=== PATIENT | female | born 1960 | race Two or more races ===

== ENCOUNTER 2023-10-09 15:15 | Inpatient (IN) | payer MEDICAID ==
[~2023-10-09] VITALS: Ht 165.1 cm; Wt 70.2 kg
[~2023-10-09 15:15] MED LIST: CEFP200T15 PO; CIPR500T4 PO
[2023-10-09 16:24] LABS: Basophils # (auto) 0 10 ^3/uL (0-0.2); Basophils % (auto) 0.3 % (0.0-2.0); Eosinophils # (auto) 0.1 10 ^3/uL (0-0.8); Eosinophils % (auto) 0.7 % (0.0-7.0); Hemoglobin 10.9 g/dL (12.2-16.2); Lymphocytes # (auto) 0.7 10 ^3/uL (0.4-5.4); Lymphocytes % (auto) 7.8 % (10.0-50.0); Mean Corpuscular Hemoglobin 29.8 pg (28.0-32.0); Mean Corpuscular Hgb Conc. 32.9 g/dL (32.0-36.0); Mean Corpuscular Volume 90.6 fL (80.0-100.0); Monocytes # (auto) 0.6 10 ^3/uL (0-1.3); Monocytes % (auto) 6.8 % (0.0-12.0); Neutrophils # (auto) 7.5 10 ^3/uL (1.6-8.6); Neutrophils % (auto) 84.4 % (37.0-80.0); Nucleated Red Blood Cells % 0.1 %; Red Blood Cells 3.64 10^6/uL (4.0-5.20); Red Cell Distribution Width 18.7 % (11.8-14.3); White Blood Cell 8.9 10^3/uL (4.4-10.8)
[2023-10-09 16:41] LABS: Alanine Aminotransferase 32 U/L (7-40); Albumin 3.6 g/dL (3.2-4.8); Alkaline Phosphatase 91 U/L (46-116); Anion Gap 8 (5-15); Aspartate Aminotransferase 41 U/L (13-40); BUN/Creatinine Ratio 16.9 (10.0-20.0); Blood Urea Nitrogen 27 mg/dL (9-23); Calcium 9.4 mg/dL (8.7-10.4); Carbon Dioxide 15 mmol/L (20-30); Chloride 122 mmol/L (98-107); Glucose 129 mg/dL (74-106); Lipase 180 U/L (12-53); Platelet Estimate Decreased; Potassium 3.4 mmol/L (3.5-5.1); Sodium 145 mmol/L (136-145)
[2023-10-09 16:42] LABS: Bilirubin, Total 1.4 mg/dL (0.2-1.0); Total Protein 6.6 g/dL (5.7-8.2)
[2023-10-09 16:44] VITALS: RESP 18; O2SAT 96
[2023-10-09 19:04] LABS: Urine Bacteria MOD /hpf (None Seen); Urine Blood Negative /uL (Negative); Urine Clarity Clear (Clear); Urine Color Light-Yellow (Yellow); Urine Protein, UAD TRACE (Negative); Urine Specific Gravity 1.011 (1.001-1.035); Urine Urobilinogen Normal (Negative); Urine WBC 12 /hpf (0 - 5); Urine pH 6.5 (5.0-9.0)
[2023-10-09 19:45] VITALS: PULSE 87; RESP 19; O2SAT 95
[2023-10-09] MEDS ORDERED: DEXTROSE (50%) 50ML SYRG IV PRN (23:00)
[2023-10-09] MEDS ORDERED: ONDANSETRON HCL 4 MG/2 ML VIAL IV PRN (23:00)
[2023-10-09] MEDS: SOD CHL 0.9%/ KCL 20MEQ 1,000 ML IV ONE (23:00)
[2023-10-09] MEDS ORDERED: ACETAMINOPHEN 325 MG TAB PO PRN (23:00)
[2023-10-10] VITALS (7 sets, daily range): BP systolic 112–128; BP diastolic 53–59; PULSE 78–91; RESP 16–20; TEMP 98.3–99.5; O2SAT 95–97
[2023-10-10] MEDS: ACCU-CHEK COMFORT CURVE STRIP VI SCH
[2023-10-10] MEDS: InsuLIN REG 1unit/0.01ml Soln (100units/ml) SC SCH
[2023-10-10] MEDS: cefTRIAXone 1GM/50ML D5W 50 ML IV ONE (00:13)
[2023-10-10 07:55] LABS: Eosinophils # (auto) 0.1 10 ^3/uL (0-0.8); Hemoglobin 10.8 g/dL (12.2-16.2); Monocytes # (auto) 0.5 10 ^3/uL (0-1.3)
[2023-10-10 07:58] LABS: Basophils # (auto) 0 10 ^3/uL (0-0.2); Basophils % (auto) 0.3 % (0.0-2.0); Eosinophils % (auto) 0.9 % (0.0-7.0); Lymphocytes # (auto) 0.8 10 ^3/uL (0.4-5.4); Lymphocytes % (auto) 7.7 % (10.0-50.0); Mean Corpuscular Hgb Conc. 33.7 g/dL (32.0-36.0); Mean Corpuscular Volume 91.8 fL (80.0-100.0); Monocytes % (auto) 4.9 % (0.0-12.0); Neutrophils # (auto) 8.6 10 ^3/uL (1.6-8.6); Neutrophils % (auto) 86.2 % (37.0-80.0); Nucleated Red Blood Cells % 0.1 %; Red Blood Cells 3.48 10^6/uL (4.0-5.20); Red Cell Distribution Width 19.4 % (11.8-14.3)
[2023-10-10 08:09] LABS: Alanine Aminotransferase 32 U/L (7-40); Albumin 3.8 g/dL (3.2-4.8); Alkaline Phosphatase 95 U/L (46-116); Anion Gap 11 (5-15); Aspartate Aminotransferase 39 U/L (13-40); BUN/Creatinine Ratio 17.1 (10.0-20.0); Blood Urea Nitrogen 24 mg/dL (9-23); Carbon Dioxide 13 mmol/L (20-30); Chloride 120 mmol/L (98-107); Glucose 113 mg/dL (74-106); Potassium 2.9 mmol/L (3.5-5.1); Sodium 144 mmol/L (136-145)
[2023-10-10 08:11] LABS: Bilirubin, Total 1.4 mg/dL (0.2-1.0); Total Protein 6.9 g/dL (5.7-8.2)
[2023-10-10] MEDS ORDERED: SERT100T PO (08:25)
[2023-10-10] MEDS ORDERED: FERR325T20 PO (08:27)
[2023-10-10] MEDS ORDERED: OMEP1CAP70 PO (08:27)
[2023-10-10] MEDS ORDERED: ERGO1CAP12 PO (08:27)
[2023-10-10] MEDS ORDERED: HYD25TP TOP (08:27)
[2023-10-10] MEDS ORDERED: INSU1INJ19 SC (08:27)
[2023-10-10] MEDS ORDERED: SERT-160 PO (08:27)
[2023-10-10 10:55] LABS: INR 1.13 (0.9-1.15); Partial Thromboplastin Time 27.8 SEC (24.5-34.5); Prothrombin Time 11.9 sec (9.3-11.8)
[2023-10-10] MEDS: POTASSIUM EFFERVESENT TAB 25 MEQ PO ONE (12:05)
[2023-10-10] MEDS: LACTULOSE 20Gm/30ML SOLN PO SCH (14:49)
[2023-10-10] MEDS ORDERED: cefTRIAXone 1GM/50ML D5W 50 ML IV SCH (21:00)
[2023-10-11] VITALS (7 sets, daily range): BP systolic 98–121; BP diastolic 42–58; PULSE 66–85; RESP 16–20; TEMP 97.8–98.9; O2SAT 95–97
[2023-10-11 07:37] LABS: Basophils # (auto) 0 10 ^3/uL (0-0.2); Basophils % (auto) 0.2 % (0.0-2.0); Eosinophils # (auto) 0.1 10 ^3/uL (0-0.8); Eosinophils % (auto) 2.2 % (0.0-7.0); Hematocrit 29.5 % (36.0-46.0); Lymphocytes # (auto) 0.8 10 ^3/uL (0.4-5.4); Lymphocytes % (auto) 12.7 % (10.0-50.0); Mean Corpuscular Hemoglobin 30.6 pg (28.0-32.0); Mean Corpuscular Volume 90.1 fL (80.0-100.0); Monocytes # (auto) 0.4 10 ^3/uL (0-1.3); Monocytes % (auto) 6.9 % (0.0-12.0); Neutrophils # (auto) 4.9 10 ^3/uL (1.6-8.6); Nucleated Red Blood Cells % 0.1 %; Red Blood Cells 3.27 10^6/uL (4.0-5.20); White Blood Cell 6.3 10^3/uL (4.4-10.8)
[2023-10-11 08:07] LABS: Anion Gap 10 (5-15); Carbon Dioxide 12 mmol/L (20-30); Chloride 115 mmol/L (98-107); Potassium 2.8 mmol/L (3.5-5.1); Sodium 137 mmol/L (136-145)
[2023-10-11 08:08] LABS: Calcium 8.8 mg/dL (8.7-10.4)
[2023-10-11 08:12] LABS: Glucose 116 mg/dL (74-106)
[2023-10-11 08:13] LABS: BUN/Creatinine Ratio 20.1 (10.0-20.0); Blood Urea Nitrogen 27 mg/dL (9-23)
[2023-10-11] MEDS: POTASSIUM EFFERVESENT TAB 25 MEQ PO ONE ×2 (11:01→18:39)
[2023-10-11] MEDS: cefTRIAXone 1GM/50ML D5W 50 ML IV SCH (11:01)
[2023-10-11] MEDS ORDERED: POTA-180 PO (13:55)
[2023-10-11] MEDS: SERTRALINE HCL 50 MG TAB PO ONE (19:11)
[2023-10-12] VITALS (7 sets, daily range): BP systolic 105–120; BP diastolic 40–47; PULSE 70–85; RESP 16–17; TEMP 98.1–98.7; O2SAT 96–97
[2023-10-12 06:14] LABS: Hemoglobin 10.6 g/dL (12.2-16.2)
[2023-10-12 06:18] LABS: Basophils # (auto) 0 10 ^3/uL (0-0.2); Basophils % (auto) 0.6 % (0.0-2.0); Eosinophils # (auto) 0.2 10 ^3/uL (0-0.8); Eosinophils % (auto) 3.2 % (0.0-7.0); Hematocrit 31.4 % (36.0-46.0); Lymphocytes # (auto) 0.9 10 ^3/uL (0.4-5.4); Lymphocytes % (auto) 17.8 % (10.0-50.0); Mean Corpuscular Hemoglobin 30.4 pg (28.0-32.0); Mean Corpuscular Hgb Conc. 33.8 g/dL (32.0-36.0); Mean Corpuscular Volume 89.9 fL (80.0-100.0); Monocytes # (auto) 0.5 10 ^3/uL (0-1.3); Monocytes % (auto) 9.6 % (0.0-12.0); Neutrophils # (auto) 3.5 10 ^3/uL (1.6-8.6); Neutrophils % (auto) 68.8 % (37.0-80.0); Nucleated Red Blood Cells % 0.2 %
[2023-10-12 06:29] LABS: Chloride 115 mmol/L (98-107); Potassium 3.3 mmol/L (3.5-5.1); Sodium 141 mmol/L (136-145)
[2023-10-12 06:30] LABS: Anion Gap 13 (5-15); Calcium 8.8 mg/dL (8.7-10.4); Carbon Dioxide 13 mmol/L (20-30)
[2023-10-12 06:35] LABS: Blood Urea Nitrogen 24 mg/dL (9-23); Glucose 113 mg/dL (74-106)
[2023-10-12] MEDS: POTASSIUM EFFERVESENT TAB 25 MEQ PO ONE ×2 (06:44→10:09)
[2023-10-12] MEDS ORDERED: SERTRALINE HCL 50 MG TAB PO SCH (10:00)
[2023-10-12] MEDS ORDERED: LACT10SO3 PO (11:58)
[2023-10-12] MEDS ORDERED: CEPH250C PO (11:59)
[2023-10-12] MEDS ORDERED: POTA-180 PO (12:00)
[2023-10-12] MEDS: SERTRALINE HCL 50 MG TAB PO SCH (17:45)
== END 2023-10-12 18:35 | disposition home or self-care (01) ==
LOC: ER 15:17 → OVERFLOW 22:59 → CENTRAL 10-10 07:59
PROVIDERS: ADMIT Internal Medicine Geriatric Medicine; ATTEND Internal Medicine Geriatric Medicine
DX: K74.60 Unspecified cirrhosis of liver (principal); N17.0 Acute kidney failure with tubular necrosis; G93.41 Metabolic encephalopathy; E72.20 Disorder of urea cycle metabolism, unspecified; D69.6 Thrombocytopenia, unspecified; E11.22 Type 2 diabetes mellitus with diabetic chronic kidney disease; D64.9 Anemia, unspecified; E87.6 Hypokalemia; N39.0 Urinary tract infection, site not specified; N18.30 Chronic kidney disease, stage 3 unspecified; Z93.3 Colostomy status; Z90.49 Acquired absence of other specified parts of digestive tract; Z79.899 Other long term (current) drug therapy
CPT/HCPCS: 36415; 70450; 71045; 71250; 74176; 80048; 80053; 81001; 82140; 82962; 83605; 83690; 83735; 84484; 85025; 85379; 85610; 85730; 86038; 87040; 87081; 87086; 93005; 96365; 96367; G0378; J1815

== ENCOUNTER 2023-10-23 11:11 | Inpatient (IN) | payer MEDICAID ==
[~2023-10-23] VITALS: Ht 167.6 cm; Wt 95.0 kg
[2023-10-23 03:32] VITALS: PULSE 95; RESP 20; O2SAT 97
[~2023-10-23 11:11] MED LIST changes: -CEFP200T15 PO; +CEPH250C PO; -CIPR500T4 PO; +ERGO1CAP12 PO; +FERR325T20 PO; +HYD25TP TOP; +INSU1INJ19 SC; +LACT10SO3 PO; +OMEP1CAP70 PO; +POTA-180 PO; +SERT-160 PO
[2023-10-23 12:00] VITALS: PULSE 94; RESP 14; O2SAT 100
[2023-10-23] MEDS: SODIUM CHLORIDE 0.9% 500 ML IVB ONE (12:22)
[2023-10-23 12:36] LABS: Basophils # (auto) 0 10 ^3/uL (0-0.2); Eosinophils # (auto) 0.1 10 ^3/uL (0-0.8); Eosinophils % (auto) 0.7 % (0.0-7.0); Hemoglobin 13.5 g/dL (12.2-16.2); Lymphocytes # (auto) 0.8 10 ^3/uL (0.4-5.4); Lymphocytes % (auto) 4.7 % (10.0-50.0); Mean Corpuscular Hemoglobin 30.4 pg (28.0-32.0); Mean Corpuscular Hgb Conc. 32.9 g/dL (32.0-36.0); Mean Corpuscular Volume 92.3 fL (80.0-100.0); Monocytes # (auto) 1.1 10 ^3/uL (0-1.3); Monocytes % (auto) 6.8 % (0.0-12.0); Neutrophils # (auto) 14.2 10 ^3/uL (1.6-8.6); Neutrophils % (auto) 87.8 % (37.0-80.0); Nucleated Red Blood Cells % 0.4 %; Red Blood Cells 4.44 10^6/uL (4.0-5.20); Red Cell Distribution Width 18.8 % (11.8-14.3); White Blood Cell 16.2 10^3/uL (4.4-10.8)
[2023-10-23 12:57] LABS: Alanine Aminotransferase 90 U/L (7-40); Albumin 3.6 g/dL (3.2-4.8); Alkaline Phosphatase 147 U/L (46-116); Anion Gap 11.00001 (5-15); Aspartate Aminotransferase 124 U/L (13-40); BUN/Creatinine Ratio 12.9 (10.0-20.0); Blood Urea Nitrogen 54 mg/dL (9-23); Calcium 9.3 mg/dL (8.7-10.4); Chloride 112 mmol/L (98-107); Glucose 203 mg/dL (74-106); Potassium 2.8 mmol/L (3.5-5.1); Sodium 133 mmol/L (136-145); Total Protein 6.9 g/dL (5.7-8.2)
[2023-10-23 13:07] LABS: Carbon Dioxide < 10 mmol/L (20-30)
[2023-10-23 13:19] LABS: Lactic Acid w/Reflex 3.1 mmol/L (0.4-2.0)
[2023-10-23 15:24] LABS: Urine Bacteria None Seen /hpf (None Seen)
[2023-10-23 15:39] LABS: Urine Blood 3+ /uL (Negative); Urine Clarity Turbid (Clear); Urine Color Light-Orange (Yellow); Urine Protein, UAD 2+ (Negative); Urine Specific Gravity 1.013 (1.001-1.035); Urine Urobilinogen Normal (Negative); Urine WBC 267 /hpf (0 - 5); Urine pH 6.5 (5.0-9.0)
[2023-10-23] MEDS ORDERED: ACETAMINOPHEN 325 MG TAB PO PRN (16:00)
[2023-10-23] MEDS ORDERED: DOCUSATE SOD 100 MG CAP PO PRN (16:00)
[2023-10-23] MEDS: SODIUM CHLORIDE 0.9% 1,000 ML IV SCH (16:00)
[2023-10-23] MEDS ORDERED: DEXTROSE (50%) 50ML SYRG IV PRN (16:00)
[2023-10-23] MEDS: SODIUM CHLORIDE 0.9% 2,000 ML IV ONE (16:00)
[2023-10-23] MEDS ORDERED: ONDANSETRON HCL 4 MG/2 ML VIAL IV PRN (16:00)
[2023-10-23] MEDS: cefTRIAXone 1GM/50ML D5W 50 ML IV ONE (16:10)
[2023-10-23] MEDS ORDERED: IBUPROFEN 600 MG TAB PO PRN (16:30)
[2023-10-23] MEDS: VANCOMYCIN 1GM/200ML 200 ML IV ONE (16:31)
[2023-10-23] MEDS ORDERED: NITROGLYCERIN 0.4 MG SL TAB SL PRN (17:00)
[2023-10-23] MEDS: ACCU-CHEK COMFORT CURVE STRIP VI SCH (17:00)
[2023-10-23] MEDS ORDERED: MORPHINE SULFATE INJ 2 MG/ml SYRG IV PRN (17:00)
[2023-10-23] MEDS: POTASSIUM CHL 20MEQ/100ML 100 ML IV SCH (17:23)
[2023-10-23] MEDS: POTASSIUM CHL 20MEQ/100ML 100 ML IV ONE ×2 (17:45→19:43)
[2023-10-23] MEDS: InsuLIN REG 1unit/0.01ml Soln (100units/ml) SC SCH ×2 (17:47→21:46)
[2023-10-23] MEDS: SODIUM CHLORIDE 0.9% 500 ML IV ONE (17:49)
[2023-10-23] MEDS: SODIUM BICARB 8.4% 50Meq/50ml SYR Vial IV ONE (18:26)
[2023-10-23] MEDS: SODIUM BICARB 50mEq/50ml Vial 150 ML in D5W 5% 1,000 ML IV SCH (19:08)
[2023-10-23 19:44] LABS: Sodium Urine 60 mmol/L (40-220)
[2023-10-23 19:51] LABS: Creatinine, Urine 146.55 mg/dL (30.0-125.0)
[2023-10-23 19:52] LABS: Amphetamine Screen, Urine Neg (NEGATIVE); Barbiturate Scree,Urine Neg (NEGATIVE); Benzodiazephine Screen, Urine Neg (NEGATIVE)
[2023-10-23 19:53] LABS: Cannabinoid Screen, Urine Neg (NEGATIVE); Cocaine Screen, Urine Neg (NEGATIVE); Opiate Scree,Urine Neg (NEGATIVE); Phencyclidine Screen, Urine Neg (NEGATIVE)
[2023-10-23 19:54] LABS: Alanine Aminotransferase 77 U/L (7-40); Albumin 2.7 g/dL (3.2-4.8); Alkaline Phosphatase 106 U/L (46-116); Anion Gap 13.00001 (5-15); Aspartate Aminotransferase 124 U/L (13-40); BUN/Creatinine Ratio 16.4 (10.0-20.0); Blood Urea Nitrogen 57 mg/dL (9-23); Calcium 7.9 mg/dL (8.7-10.4); Chloride 119 mmol/L (98-107); Glucose 108 mg/dL (74-106); Potassium 2.7 mmol/L (3.5-5.1); Sodium 142 mmol/L (136-145)
[2023-10-23 19:55] LABS: Protein, Urine 254.1 mg/dL (0.0-11.9)
[2023-10-23 19:56] LABS: Bilirubin, Total 0.6 mg/dL (0.2-1.0)
[2023-10-23 19:57] LABS: Total Protein 5.1 g/dL (5.7-8.2)
[2023-10-23 20:01] LABS: Carbon Dioxide < 10 mmol/L (20-30)
[2023-10-23] MEDS ORDERED: LACTULOSE 20Gm/30ML SOLN PO PRN (22:00)
[2023-10-24] VITALS (7 sets, daily range): BP systolic 116–124; BP diastolic 42–69; PULSE 86–99; RESP 18–20; TEMP 96.7–98.1; O2SAT 97–100
[2023-10-24] MEDS: LACTULOSE 20Gm/30ML SOLN PO SCH (05:23)
[2023-10-24 07:05] LABS: Basophils # (auto) 0 10 ^3/uL (0-0.2); Eosinophils # (auto) 0.1 10 ^3/uL (0-0.8); Neutrophils # (auto) 5.1 10 ^3/uL (1.6-8.6); Red Blood Cells 3.34 10^6/uL (4.0-5.20); White Blood Cell 6.5 10^3/uL (4.4-10.8)
[2023-10-24 07:08] LABS: Basophils % (auto) 0.4 % (0.0-2.0); Eosinophils % (auto) 1.4 % (0.0-7.0); Hematocrit 29.7 % (36.0-46.0); Hemoglobin 10.4 g/dL (12.2-16.2); Lymphocytes # (auto) 0.7 10 ^3/uL (0.4-5.4); Mean Corpuscular Hemoglobin 31.1 pg (28.0-32.0); Mean Corpuscular Volume 88.9 fL (80.0-100.0); Monocytes # (auto) 0.6 10 ^3/uL (0-1.3); Neutrophils % (auto) 78.2 % (37.0-80.0); Nucleated Red Blood Cells % 0.2 %
[2023-10-24 07:28] LABS: Alanine Aminotransferase 91 U/L (7-40); Albumin 2.8 g/dL (3.2-4.8); Alkaline Phosphatase 106 U/L (46-116); Anion Gap 16.00001 (5-15); Aspartate Aminotransferase 150 U/L (13-40); BUN/Creatinine Ratio 18.3 (10.0-20.0); Bilirubin, Total 0.9 mg/dL (0.2-1.0); Blood Urea Nitrogen 61 mg/dL (9-23); Calcium 8.2 mg/dL (8.7-10.4); Chloride 117 mmol/L (98-107); Glucose 141 mg/dL (74-106); Sodium 143 mmol/L (136-145); Total Protein 5.3 g/dL (5.7-8.2)
[2023-10-24 07:42] LABS: Potassium 2.3 mmol/L (3.5-5.1)
[2023-10-24 07:43] LABS: Carbon Dioxide < 10 mmol/L (20-30)
[2023-10-24] MEDS: POTASSIUM CHL 20MEQ/100ML 100 ML IV SCH (08:30)
[2023-10-24] MEDS: cefTRIAXone 1GM/50ML D5W 50 ML IV SCH (10:54)
[2023-10-24] MEDS: LACTULOSE 20Gm/30ML SOLN PO ONE (12:28)
[2023-10-24 12:33] LABS: INR 1.29 (0.9-1.15); Partial Thromboplastin Time 30.7 SEC (24.5-34.5); Prothrombin Time 13.4 sec (9.3-11.8)
[2023-10-24 16:54] LABS: Chloride 120 mmol/L (98-107); Potassium 2.6 mmol/L (3.5-5.1); Sodium 144 mmol/L (136-145)
[2023-10-24 16:55] LABS: Anion Gap 13 (5-15); Calcium 8.3 mg/dL (8.7-10.4); Carbon Dioxide 11 mmol/L (20-30)
[2023-10-24 17:00] LABS: Glucose 165 mg/dL (74-106); Magnesium 2.4 mg/dL (1.6-2.6)
[2023-10-24 17:02] LABS: Blood Urea Nitrogen 49 mg/dL (9-23)
[2023-10-24] MEDS: PIPERACILLIN-TAZOB 3.375GM 100 ML IV ONE (17:28)
[2023-10-24] MEDS: PANTOPRAZOLE 40 MG/10 ML VIAL INJ IV ONE (17:28)
[2023-10-24] MEDS: PIPERACILLIN-TAZOB 3.375GM 100 ML IV SCH (23:24)
[2023-10-25] VITALS (9 sets, daily range): BP systolic 112–139; BP diastolic 49–64; PULSE 8–101; RESP 18–20; TEMP 97.4–98; O2SAT 98–100
[2023-10-25] MEDS: POTASSIUM CHL 20MEQ/100ML 100 ML IV SCH ×2 (00:19→10:50)
[2023-10-25 05:58] LABS: Basophils # (auto) 0 10 ^3/uL (0-0.2); Basophils % (auto) 0.5 % (0.0-2.0); Eosinophils # (auto) 0.1 10 ^3/uL (0-0.8); Hematocrit 27.5 % (36.0-46.0); Hemoglobin 9.5 g/dL (12.2-16.2); Lymphocytes # (auto) 0.5 10 ^3/uL (0.4-5.4); Lymphocytes % (auto) 8.9 % (10.0-50.0); Mean Corpuscular Hemoglobin 30.6 pg (28.0-32.0); Mean Corpuscular Hgb Conc. 34.6 g/dL (32.0-36.0); Mean Corpuscular Volume 88.5 fL (80.0-100.0); Monocytes # (auto) 0.4 10 ^3/uL (0-1.3); Monocytes % (auto) 7.4 % (0.0-12.0); Neutrophils # (auto) 4.7 10 ^3/uL (1.6-8.6); Neutrophils % (auto) 81.2 % (37.0-80.0); Nucleated Red Blood Cells % 0.1 %; Red Blood Cells 3.11 10^6/uL (4.0-5.20); Red Cell Distribution Width 18.2 % (11.8-14.3); White Blood Cell 5.8 10^3/uL (4.4-10.8)
[2023-10-25 06:07] LABS: Alanine Aminotransferase 113 U/L (7-40); Albumin 2.8 g/dL (3.2-4.8); Alkaline Phosphatase 103 U/L (46-116); Anion Gap 14 (5-15); Aspartate Aminotransferase 197 U/L (13-40); BUN/Creatinine Ratio 19.5 (10.0-20.0); Calcium 8.7 mg/dL (8.7-10.4); Carbon Dioxide 12 mmol/L (20-30); Chloride 121 mmol/L (98-107); Glucose 107 mg/dL (74-106); Magnesium 2.3 mg/dL (1.6-2.6); Potassium 2.8 mmol/L (3.5-5.1); Sodium 147 mmol/L (136-145)
[2023-10-25 06:09] LABS: Bilirubin, Total 1.1 mg/dL (0.2-1.0)
[2023-10-25 06:34] LABS: Blood Urea Nitrogen 61 mg/dL (9-23)
[2023-10-25] MEDS: LACTULOSE 20Gm/30ML SOLN PO SCH (10:55)
[2023-10-25] MEDS: PANTOPRAZOLE 40 MG/10 ML VIAL INJ IV SCH (10:55)
[2023-10-25] MEDS: ERGOCALCIFEROL 50,000 UNIT(1.25MG) CAP PO SCH (10:55)
[2023-10-25] MEDS: Nepro With Carb Steady 1 Liter Bottle GT SCH (13:14)
[2023-10-26] VITALS (8 sets, daily range): BP systolic 110–140; BP diastolic 53–68; PULSE 79–130; RESP 12–18; TEMP 97.5–98.2; O2SAT 99–100
[2023-10-26] MEDS: POTASSIUM EFFERVESENT TAB 25 MEQ GT ONE (02:10)
[2023-10-26 06:19] LABS: Basophils # (auto) 0 10 ^3/uL (0-0.2); Basophils % (auto) 0.4 % (0.0-2.0); Eosinophils # (auto) 0.1 10 ^3/uL (0-0.8); Eosinophils % (auto) 2.4 % (0.0-7.0); Hematocrit 28.9 % (36.0-46.0); Hemoglobin 10.1 g/dL (12.2-16.2); Lymphocytes # (auto) 0.6 10 ^3/uL (0.4-5.4); Lymphocytes % (auto) 10.3 % (10.0-50.0); Mean Corpuscular Hemoglobin 30.9 pg (28.0-32.0); Mean Corpuscular Volume 88.2 fL (80.0-100.0); Monocytes # (auto) 0.6 10 ^3/uL (0-1.3); Monocytes % (auto) 8.9 % (0.0-12.0); Neutrophils # (auto) 4.9 10 ^3/uL (1.6-8.6); Nucleated Red Blood Cells % 0.1 %; Red Blood Cells 3.27 10^6/uL (4.0-5.20); Red Cell Distribution Width 18.5 % (11.8-14.3); White Blood Cell 6.2 10^3/uL (4.4-10.8)
[2023-10-26 06:37] LABS: Alanine Aminotransferase 149 U/L (7-40); Albumin 2.8 g/dL (3.2-4.8); Alkaline Phosphatase 104 U/L (46-116); Anion Gap 13 (5-15); Aspartate Aminotransferase 293 U/L (13-40); BUN/Creatinine Ratio 23.8 (10.0-20.0); Blood Urea Nitrogen 69 mg/dL (9-23); Calcium 8.6 mg/dL (8.7-10.4); Carbon Dioxide 19 mmol/L (20-30); Chloride 121 mmol/L (98-107); Glucose 158 mg/dL (74-106)
[2023-10-26 06:38] LABS: Bilirubin, Total 1.1 mg/dL (0.2-1.0); Total Protein 5.1 g/dL (5.7-8.2)
[2023-10-26 06:44] LABS: Sodium 153 mmol/L (136-145)
[2023-10-26] MEDS ORDERED: POTASSIUM CHLORIDE 40 MEQ in SOD CHL 0.45% 1,000 ML IV SCH (07:00)
[2023-10-26] MEDS ORDERED: SODIUM BICARB 50mEq/50ml Vial 50 ML in D5W 5% 1,000 ML IV SCH (09:15)
[2023-10-26] MEDS ORDERED: POTASSIUM CHL 20MEQ/100ML 100 ML IV SCH (09:15)
[2023-10-26] MEDS ORDERED: DEXTROSE (50%) 50ML SYRG IV PRN (12:15)
[2023-10-26] MEDS: SODIUM BICARB 50mEq/50ml Vial 50 ML in D5W 5% 1,000 ML IV SCH (12:32)
[2023-10-26] MEDS: LACTULOSE 20Gm/30ML SOLN PO SCH (15:01)
[2023-10-26] MEDS: LIDOCAINE 1% IV ONE (15:02)
[2023-10-26] MEDS: POTASSIUM CHLORIDE IV ONE (15:02)
[2023-10-26] MEDS: SODIUM CHL 0.9% IV ONE (15:02)
[2023-10-26 16:56] LABS: Anion Gap 9 (5-15); Calcium 8.6 mg/dL (8.7-10.4); Carbon Dioxide 20 mmol/L (20-30); Chloride 119 mmol/L (98-107); Potassium 3.4 mmol/L (3.5-5.1)
[2023-10-26 17:02] LABS: BUN/Creatinine Ratio 20.9 (10.0-20.0); Glucose 164 mg/dL (74-106)
[2023-10-26 17:05] LABS: Blood Urea Nitrogen 53 mg/dL (9-23); Sodium 148 mmol/L (136-145)
[2023-10-26] MEDS: ACCU-CHEK COMFORT CURVE STRIP VI SCH (18:14)
[2023-10-26] MEDS: InsuLIN REG 1unit/0.01ml Soln (100units/ml) SC SCH (18:17)
[2023-10-27] VITALS (8 sets, daily range): BP systolic 93–133; BP diastolic 51–74; PULSE 65–82; RESP 17–20; TEMP 97.1–98.3; O2SAT 94–100
[2023-10-27] MEDS: POTASSIUM CHL 20MEQ/100ML 100 ML IV ONE (03:15)
[2023-10-27 06:39] LABS: Alanine Aminotransferase 130 U/L (7-40); Alkaline Phosphatase 81 U/L (46-116); Anion Gap 11 (5-15); BUN/Creatinine Ratio 23.9 (10.0-20.0); Blood Urea Nitrogen 52 mg/dL (9-23); Calcium 8.2 mg/dL (8.7-10.4); Carbon Dioxide 19 mmol/L (20-30); Chloride 115 mmol/L (98-107); Glucose 131 mg/dL (74-106); Sodium 145 mmol/L (136-145)
[2023-10-27 06:40] LABS: Aspartate Aminotransferase 215 U/L (13-40); Basophils # (auto) 0 10 ^3/uL (0-0.2); Basophils % (auto) 0.3 % (0.0-2.0); Eosinophils # (auto) 0.1 10 ^3/uL (0-0.8); Lymphocytes # (auto) 0.5 10 ^3/uL (0.4-5.4); Lymphocytes % (auto) 13.7 % (10.0-50.0); Neutrophils # (auto) 2.9 10 ^3/uL (1.6-8.6); White Blood Cell 3.9 10^3/uL (4.4-10.8)
[2023-10-27 06:41] LABS: Albumin 2.5 g/dL (3.2-4.8); Bilirubin, Total 1.3 mg/dL (0.2-1.0); Total Protein 4.5 g/dL (5.7-8.2)
[2023-10-27 06:42] LABS: Eosinophils % (auto) 2.9 % (0.0-7.0); Hematocrit 24.6 % (36.0-46.0); Hemoglobin 8.5 g/dL (12.2-16.2); Mean Corpuscular Hemoglobin 30.9 pg (28.0-32.0); Mean Corpuscular Hgb Conc. 34.7 g/dL (32.0-36.0); Mean Corpuscular Volume 89.2 fL (80.0-100.0); Monocytes # (auto) 0.4 10 ^3/uL (0-1.3); Neutrophils % (auto) 74.1 % (37.0-80.0); Nucleated Red Blood Cells % 0.2 %; Red Blood Cells 2.75 10^6/uL (4.0-5.20); Red Cell Distribution Width 18.5 % (11.8-14.3)
[2023-10-27] MEDS ORDERED: POTASSIUM CHL 20MEQ/100ML 100 ML IV SCH (07:30)
[2023-10-27] MEDS: POTASSIUM CHLORIDE IV ONE (11:35)
[2023-10-27] MEDS: SODIUM CHL 0.9% IV ONE (11:35)
[2023-10-27] MEDS: LIDOCAINE 1% IV ONE (11:35)
[2023-10-27 18:11] LABS: Urine Bacteria None Seen /hpf (None Seen)
[2023-10-27 18:28] LABS: Urine Blood 3+ /uL (Negative); Urine Budding Yeast MANY /hpf (None Seen); Urine Clarity Turbid (Clear); Urine Color Light-Yellow (Yellow); Urine Protein, UAD TRACE (Negative); Urine Specific Gravity 1.012 (1.001-1.035); Urine Urobilinogen Normal (Negative); Urine WBC 17 /hpf (0 - 5); Urine pH 6.5 (5.0-9.0)
[2023-10-27] MEDS: LINEZOLID 600MG/300ML 300 ML IV SCH (21:29)
[2023-10-28] VITALS (8 sets, daily range): BP systolic 89–100; BP diastolic 40–48; PULSE 64–77; RESP 15–20; TEMP 96.9–98.1; O2SAT 96–100
[2023-10-28 06:03] LABS: Basophils # (auto) 0 10 ^3/uL (0-0.2); Eosinophils # (auto) 0.1 10 ^3/uL (0-0.8); Hematocrit 24.7 % (36.0-46.0); Hemoglobin 8.5 g/dL (12.2-16.2); Lymphocytes # (auto) 0.6 10 ^3/uL (0.4-5.4); Monocytes # (auto) 0.3 10 ^3/uL (0-1.3); Neutrophils # (auto) 2.7 10 ^3/uL (1.6-8.6); White Blood Cell 3.7 10^3/uL (4.4-10.8)
[2023-10-28 06:07] LABS: Basophils % (auto) 0.2 % (0.0-2.0); Eosinophils % (auto) 3.4 % (0.0-7.0); Lymphocytes % (auto) 16.2 % (10.0-50.0); Mean Corpuscular Hemoglobin 30.9 pg (28.0-32.0); Mean Corpuscular Hgb Conc. 34.5 g/dL (32.0-36.0); Mean Corpuscular Volume 89.5 fL (80.0-100.0); Monocytes % (auto) 7.3 % (0.0-12.0); Neutrophils % (auto) 72.9 % (37.0-80.0); Red Blood Cells 2.76 10^6/uL (4.0-5.20); Red Cell Distribution Width 18.5 % (11.8-14.3)
[2023-10-28 06:31] LABS: Alanine Aminotransferase 136 U/L (7-40); Albumin 2.4 g/dL (3.2-4.8); Alkaline Phosphatase 80 U/L (46-116); Anion Gap 9 (5-15); Aspartate Aminotransferase 193 U/L (13-40); BUN/Creatinine Ratio 22.2 (10.0-20.0); Bilirubin, Total 1.4 mg/dL (0.2-1.0); Blood Urea Nitrogen 42 mg/dL (9-23); Calcium 8.1 mg/dL (8.7-10.4); Carbon Dioxide 19 mmol/L (20-30); Chloride 112 mmol/L (98-107); Glucose 104 mg/dL (74-106); Potassium 2.9 mmol/L (3.5-5.1); Sodium 140 mmol/L (136-145); Total Protein 4.6 g/dL (5.7-8.2)
[2023-10-28] MEDS: POTASSIUM CHL 20MEQ/100ML 100 ML IV SCH ×2 (09:06→12:36)
[2023-10-28] MEDS: MAGNESIUM SULFATE 1GM/100ML 100 ML IV SCH (17:41)
[2023-10-29] VITALS (7 sets, daily range): BP systolic 89–98; BP diastolic 27–46; PULSE 65–72; RESP 15–18; TEMP 96.8–98.2; O2SAT 9–100
[2023-10-29 05:14] LABS: Basophils # (auto) 0 10 ^3/uL (0-0.2); Eosinophils # (auto) 0.1 10 ^3/uL (0-0.8); Hemoglobin 8.8 g/dL (12.2-16.2); Lymphocytes # (auto) 0.6 10 ^3/uL (0.4-5.4)
[2023-10-29 05:17] LABS: Basophils % (auto) 0.1 % (0.0-2.0); Hematocrit 25.7 % (36.0-46.0); Lymphocytes % (auto) 15.3 % (10.0-50.0); Mean Corpuscular Hemoglobin 30.9 pg (28.0-32.0); Mean Corpuscular Hgb Conc. 34.1 g/dL (32.0-36.0); Mean Corpuscular Volume 90.6 fL (80.0-100.0); Monocytes # (auto) 0.2 10 ^3/uL (0-1.3); Monocytes % (auto) 6.1 % (0.0-12.0); Neutrophils % (auto) 76.5 % (37.0-80.0); Nucleated Red Blood Cells % 0.1 %; Red Blood Cells 2.84 10^6/uL (4.0-5.20); White Blood Cell 3.9 10^3/uL (4.4-10.8)
[2023-10-29 05:20] LABS: Alanine Aminotransferase 143 U/L (7-40); Albumin 2.4 g/dL (3.2-4.8); Alkaline Phosphatase 83 U/L (46-116); Anion Gap 8 (5-15); Aspartate Aminotransferase 168 U/L (13-40); BUN/Creatinine Ratio 20.1 (10.0-20.0); Calcium 8.2 mg/dL (8.7-10.4); Carbon Dioxide 20 mmol/L (20-30); Chloride 109 mmol/L (98-107); Glucose 142 mg/dL (74-106); Magnesium 2.1 mg/dL (1.6-2.6); Potassium 3.3 mmol/L (3.5-5.1); Sodium 137 mmol/L (136-145)
[2023-10-29 05:21] LABS: Bilirubin, Total 1.3 mg/dL (0.2-1.0); Total Protein 4.7 g/dL (5.7-8.2)
[2023-10-29 05:24] LABS: Blood Urea Nitrogen 32 mg/dL (9-23)
[2023-10-29] MEDS: POTASSIUM EFFERVESENT TAB 25 MEQ PO ONE (14:48)
[2023-10-29] MEDS: FLUCONAZOLE 200MG/100ML 100 ML IV SCH (14:48)
[2023-10-29] MEDS: SODIUM BICARB 50mEq/50ml Vial 75 ML in SOD CHL 0.45% 1,000 ML IV ONE (20:30)
[2023-10-30] VITALS (8 sets, daily range): BP systolic 84–107; BP diastolic 37–59; PULSE 66–78; RESP 16–18; TEMP 97.9–98.8; O2SAT 95–98
[2023-10-30 07:13] LABS: Basophils # (auto) 0 10 ^3/uL (0-0.2); Eosinophils # (auto) 0.1 10 ^3/uL (0-0.8); Hemoglobin 8.6 g/dL (12.2-16.2); Lymphocytes # (auto) 0.6 10 ^3/uL (0.4-5.4); Monocytes # (auto) 0.2 10 ^3/uL (0-1.3); Neutrophils # (auto) 2.5 10 ^3/uL (1.6-8.6); Red Cell Distribution Width 18.4 % (11.8-14.3); White Blood Cell 3.4 10^3/uL (4.4-10.8)
[2023-10-30 07:15] LABS: Basophils % (auto) 0.1 % (0.0-2.0); Eosinophils % (auto) 2.8 % (0.0-7.0); Hematocrit 25.2 % (36.0-46.0); Lymphocytes % (auto) 16.9 % (10.0-50.0); Mean Corpuscular Hemoglobin 31.1 pg (28.0-32.0); Mean Corpuscular Hgb Conc. 34.3 g/dL (32.0-36.0); Mean Corpuscular Volume 90.6 fL (80.0-100.0); Monocytes % (auto) 6.5 % (0.0-12.0); Neutrophils % (auto) 73.7 % (37.0-80.0); Nucleated Red Blood Cells % 0.2 %; Red Blood Cells 2.78 10^6/uL (4.0-5.20)
[2023-10-30 07:23] LABS: Alanine Aminotransferase 134 U/L (7-40); Albumin 2.5 g/dL (3.2-4.8); Alkaline Phosphatase 84 U/L (46-116); Anion Gap 6 (5-15); Aspartate Aminotransferase 142 U/L (13-40); BUN/Creatinine Ratio 17.5 (10.0-20.0); Blood Urea Nitrogen 24 mg/dL (9-23); Calcium 8.4 mg/dL (8.7-10.4); Carbon Dioxide 23 mmol/L (20-30); Chloride 110 mmol/L (98-107); Glucose 124 mg/dL (74-106); Magnesium 1.8 mg/dL (1.6-2.6); Potassium 3.2 mmol/L (3.5-5.1); Sodium 139 mmol/L (136-145)
[2023-10-30 07:24] LABS: Bilirubin, Total 1.4 mg/dL (0.2-1.0); Phosphorus 2.4 mg/dL (2.4-5.1); Total Protein 4.4 g/dL (5.7-8.2)
[2023-10-30 10:29] LABS: Folate (Folic Acid) 4.84 ng/mL (>5.38)
[2023-10-30] MEDS: POTASSIUM CHL 20MEQ/100ML 100 ML IV SCH ×2 (11:30→22:15)
[2023-10-30] MEDS: rifAXIMin 550 MG TAB PO ONE (12:33)
[2023-10-30] MEDS: ALBUMIN 25% 100 ML IV SCH ×2 (16:00→21:19)
[2023-10-30] MEDS ORDERED: ACETAMINOPHEN 325 MG TAB PO PRN (22:00)
[2023-10-30] MEDS: rifAXIMin 550 MG TAB PO SCH (23:29)
[2023-10-30] MEDS: SODIUM BICARBONATE 650 MG TAB PO SCH (23:29)
[2023-10-31] VITALS (9 sets, daily range): BP systolic 93–110; BP diastolic 45–65; PULSE 69–79; RESP 16–18; TEMP 97.8–98.5; O2SAT 94–100
[2023-10-31] MEDS: PANTOPRAZOLE 40 MG TAB PO SCH (05:46)
[2023-10-31 06:44] LABS: Basophils # (auto) 0 10 ^3/uL (0-0.2); Eosinophils # (auto) 0 10 ^3/uL (0-0.8); Hematocrit 24.8 % (36.0-46.0); Lymphocytes # (auto) 0.5 10 ^3/uL (0.4-5.4); Monocytes # (auto) 0.2 10 ^3/uL (0-1.3); Neutrophils # (auto) 2.2 10 ^3/uL (1.6-8.6)
[2023-10-31 06:51] LABS: Alanine Aminotransferase 116 U/L (7-40); Alkaline Phosphatase 74 U/L (46-116); Anion Gap 8 (5-15); Aspartate Aminotransferase 102 U/L (13-40); BUN/Creatinine Ratio 14.2 (10.0-20.0); Basophils % (auto) 0.3 % (0.0-2.0); Bilirubin, Total 1.4 mg/dL (0.2-1.0); Blood Urea Nitrogen 19 mg/dL (9-23); Calcium 8.6 mg/dL (8.7-10.4); Carbon Dioxide 21 mmol/L (20-30); Chloride 114 mmol/L (98-107); Eosinophils % (auto) 1.7 % (0.0-7.0); Glucose 91 mg/dL (74-106); Hemoglobin 8.3 g/dL (12.2-16.2); Lymphocytes % (auto) 17.8 % (10.0-50.0); Mean Corpuscular Hemoglobin 30.6 pg (28.0-32.0); Mean Corpuscular Hgb Conc. 33.5 g/dL (32.0-36.0); Mean Corpuscular Volume 91.5 fL (80.0-100.0); Monocytes % (auto) 6.2 % (0.0-12.0); Nucleated Red Blood Cells % 0.1 %; Red Blood Cells 2.71 10^6/uL (4.0-5.20); Sodium 143 mmol/L (136-145)
[2023-10-31] MEDS: POTASSIUM CHL 20 Meq TABLET PO SCH (09:47)
[2023-10-31] MEDS: LACTULOSE 20Gm/30ML SOLN PO SCH (09:47)
[2023-10-31] MEDS: POTASSIUM PHOSPHATE 26.4 MEQ in SODIUM CHL 0.9% 100 ML IV ONE (09:47)
[2023-10-31] MEDS: SPIRONOLACTONE 25 MG TAB PO ONE (11:45)
[2023-11-01] VITALS (7 sets, daily range): BP systolic 90–114; BP diastolic 34–70; PULSE 71–80; RESP 16–20; TEMP 98.1–98.4; O2SAT 93–100
[2023-11-01 07:03] LABS: Basophils # (auto) 0 10 ^3/uL (0-0.2); Basophils % (auto) 0.3 % (0.0-2.0); Eosinophils # (auto) 0.1 10 ^3/uL (0-0.8); Hemoglobin 8.5 g/dL (12.2-16.2); Lymphocytes # (auto) 0.5 10 ^3/uL (0.4-5.4); Mean Corpuscular Volume 93.7 fL (80.0-100.0)
[2023-11-01 07:07] LABS: Eosinophils % (auto) 2.1 % (0.0-7.0); Hematocrit 25.3 % (36.0-46.0); Lymphocytes % (auto) 19.2 % (10.0-50.0); Mean Corpuscular Hemoglobin 31.6 pg (28.0-32.0); Mean Corpuscular Hgb Conc. 33.7 g/dL (32.0-36.0); Monocytes # (auto) 0.2 10 ^3/uL (0-1.3); Monocytes % (auto) 6.2 % (0.0-12.0); Neutrophils # (auto) 1.9 10 ^3/uL (1.6-8.6); Neutrophils % (auto) 72.2 % (37.0-80.0); Nucleated Red Blood Cells % 0.6 %; Red Cell Distribution Width 18.6 % (11.8-14.3); White Blood Cell 2.6 10^3/uL (4.4-10.8)
[2023-11-01 07:15] LABS: Alanine Aminotransferase 105 U/L (7-40); Alkaline Phosphatase 77 U/L (46-116); Anion Gap 7 (5-15); BUN/Creatinine Ratio 13.8 (10.0-20.0); Blood Urea Nitrogen 18 mg/dL (9-23); Calcium 8.8 mg/dL (8.7-10.4); Carbon Dioxide 22 mmol/L (20-30); Chloride 113 mmol/L (98-107); Glucose 81 mg/dL (74-106); Potassium 3.9 mmol/L (3.5-5.1); Sodium 142 mmol/L (136-145)
[2023-11-01 07:16] LABS: Albumin 2.9 g/dL (3.2-4.8); Aspartate Aminotransferase 83 U/L (13-40); Bilirubin, Total 1.4 mg/dL (0.2-1.0); Total Protein 4.9 g/dL (5.7-8.2)
[2023-11-01] MEDS: SPIRONOLACTONE 25 MG TAB PO SCH (09:05)
[2023-11-01] MEDS ORDERED: RIFA550T PO (11:21)
[2023-11-01] MEDS ORDERED: SPIR25TA PO (11:21)
[2023-11-01] MEDS ORDERED: SODI650T PO (11:21)
[2023-11-01] MEDS ORDERED: LACT10SO3 PO (11:21)
[2023-11-01] MEDS ORDERED: PANT40T PO (11:21)
== END 2023-11-01 12:52 | disposition home health service (06) | DRG 720 ==
LOC: ER 11:17 → TELE 16:47 → TELE-WESTW 10-24 02:46
PROVIDERS: ADMIT Internal Medicine; ATTEND Internal Medicine
DX: A41.9 Sepsis, unspecified organism (principal); N17.0 Acute kidney failure with tubular necrosis; R65.21 Severe sepsis with septic shock; E46 Unspecified protein-calorie malnutrition; D61.818 Other pancytopenia; E72.4 Disorders of ornithine metabolism; G93.41 Metabolic encephalopathy; N39.0 Urinary tract infection, site not specified; E87.20 Acidosis, unspecified; E87.0 Hyperosmolality and hypernatremia; D69.6 Thrombocytopenia, unspecified; K74.60 Unspecified cirrhosis of liver; E86.0 Dehydration; E87.6 Hypokalemia; E83.42 Hypomagnesemia; E11.22 Type 2 diabetes mellitus with diabetic chronic kidney disease; N13.6 Pyonephrosis; I50.32 Chronic diastolic (congestive) heart failure; E83.39 Other disorders of phosphorus metabolism; E66.9 Obesity, unspecified; N18.32 Chronic kidney disease, stage 3b; D64.9 Anemia, unspecified; K76.82 Hepatic encephalopathy; Z88.5 Allergy status to narcotic agent; Z93.3 Colostomy status; Z90.49 Acquired absence of other specified parts of digestive tract; Z85.048 Personal history of other malignant neoplasm of rectum, rectosigmoid junction, and anus; Z68.26 Body mass index [BMI] 26.0-26.9, adult
CPT/HCPCS: 36415; 36600; 70450; 71045; 76775; 80048; 80053; 80307; 81001; 82043; 82140; 82306; 82570; 82607; 82728; 82746; 82805; 82962; 83010; 83036; 83540; 83550; 83605; 83615; 83735; 83930; 83935; 84100; 84132; 84133; 84156; 84300; 84443; 85025; 85045; 85610; 85730; 86141; 87040; 87086; 87088; 87186; 93005; 93306; 97110; 97116; 97163; 97530; 99291; G0378; J1450; J1815; J2001; J2470; J2543; J3480; P9047

== ENCOUNTER 2023-12-05 08:27 | Inpatient (IN) | payer MEDICAID ==
[~2023-12-05] VITALS: Ht 165.1 cm; Wt 75.8 kg
[~2023-12-05 08:27] MED LIST changes: +PANT40T PO; +RIFA550T PO; +SODI650T PO; +SPIR25TA PO
[2023-12-05 09:06] VITALS: PULSE 123; RESP 14; O2SAT 99
[2023-12-05 09:59] LABS: Basophils # (auto) 0 10 ^3/uL (0-0.2); Basophils % (auto) 0.2 % (0.0-2.0); Eosinophils # (auto) 0 10 ^3/uL (0-0.8); Eosinophils % (auto) 0.3 % (0.0-7.0); Hematocrit 43.3 % (36.0-46.0); Hemoglobin 14.3 g/dL (12.2-16.2); Lymphocytes # (auto) 1.2 10 ^3/uL (0.4-5.4); Lymphocytes % (auto) 12.3 % (10.0-50.0); Mean Corpuscular Hemoglobin 30.5 pg (28.0-32.0); Mean Corpuscular Hgb Conc. 33.2 g/dL (32.0-36.0); Mean Corpuscular Volume 91.9 fL (80.0-100.0); Monocytes # (auto) 0.4 10 ^3/uL (0-1.3); Monocytes % (auto) 4.6 % (0.0-12.0); Neutrophils # (auto) 8.1 10 ^3/uL (1.6-8.6); Neutrophils % (auto) 82.6 % (37.0-80.0); Nucleated Red Blood Cells % 0.6 %; Platelet Count (auto) 141 10^3/uL (140-450); Red Blood Cells 4.71 10^6/uL (4.0-5.20); Red Cell Distribution Width 16.7 % (11.8-14.3); White Blood Cell 9.9 10^3/uL (4.4-10.8)
[2023-12-05 10:30] LABS: Alanine Aminotransferase 44 U/L (7-40); Albumin 4.8 g/dL (3.2-4.8); Alkaline Phosphatase 166 U/L (46-116); Anion Gap 16.00001 (5-15); Aspartate Aminotransferase 51 U/L (13-40); BUN/Creatinine Ratio 13.9 (10.0-20.0); Blood Urea Nitrogen 33 mg/dL (9-23); Calcium 10.5 mg/dL (8.7-10.4); Chloride 115 mmol/L (98-107); Glucose 174 mg/dL (74-106); Potassium 3.3 mmol/L (3.5-5.1); Sodium 141 mmol/L (136-145)
[2023-12-05 10:31] LABS: Bilirubin, Total 1.8 mg/dL (0.2-1.0); Total Protein 8.7 g/dL (5.7-8.2)
[2023-12-05 10:58] LABS: Carbon Dioxide < 10 mmol/L (20-30)
[2023-12-05] MEDS: LACTULOSE 20Gm/30ML SOLN PO ONE (11:11)
[2023-12-05 11:50] LABS: Urine Bacteria FEW /hpf (None Seen); Urine Blood 2+ /uL (Negative); Urine Clarity Turbid (Clear); Urine Color Colorless (Yellow); Urine Mucus FEW (None Seen); Urine Protein, UAD 1+ (Negative); Urine Specific Gravity 1.011 (1.001-1.035); Urine Urobilinogen Normal (Negative); Urine WBC 524 /hpf (0 - 5); Urine pH 6.5 (5.0-9.0)
[2023-12-05 13:01] LABS: Blood Alcohol < 3.0 mg/dL (<10)
[2023-12-05 13:06] LABS: Amphetamine Screen, Urine Neg (NEGATIVE)
[2023-12-05 13:07] LABS: Barbiturate Scree,Urine Neg (NEGATIVE); Benzodiazephine Screen, Urine Neg (NEGATIVE)
[2023-12-05 13:08] LABS: Cocaine Screen, Urine Neg (NEGATIVE); Opiate Scree,Urine Neg (NEGATIVE); Phencyclidine Screen, Urine Neg (NEGATIVE)
[2023-12-05 13:09] LABS: Cannabinoid Screen, Urine Neg (NEGATIVE)
[2023-12-05] MEDS ORDERED: NITROGLYCERIN 0.4 MG SL TAB SL PRN (14:30)
[2023-12-05] MEDS ORDERED: MORPHINE SULFATE INJ 2 MG/ml SYRG IV PRN (14:30)
[2023-12-05] MEDS ORDERED: DEXTROSE (50%) 50ML SYRG IV PRN (14:45)
[2023-12-05 14:59] LABS: Base Excess -19.1 mmol/L (-2.0-3.0)
[2023-12-05] MEDS: SODIUM BICARB 8.4% 50Meq/50ml SYR Vial IV ONE (15:49)
[2023-12-05] MEDS: POTASSIUM CHLORIDE 20 MEQ, LIDOCAINE 1% (LOCAL ANESTH.) 2 ML in SODIUM CHL 0.9% 100 ML IV ONE (16:13)
[2023-12-05 16:49] LABS: Creatinine, Urine 83.64 mg/dL (30.0-125.0)
[2023-12-05] MEDS: InsuLIN REG 1unit/0.01ml Soln (100units/ml) SC SCH (17:00)
[2023-12-05] MEDS: ACCU-CHEK COMFORT CURVE STRIP VI SCH (17:00)
[2023-12-05] MEDS: SODIUM BICARB 50mEq/50ml Vial 150 ML in D5W 5% 1,000 ML IV SCH (18:00)
[2023-12-05] MEDS: LACTULOSE 20Gm/30ML SOLN PO SCH (18:44)
[2023-12-05 20:07] VITALS: PULSE 131; RESP 25; O2SAT 97
[2023-12-05] MEDS: rifAXIMin 550 MG TAB PO SCH (22:00)
[2023-12-05] MEDS ORDERED: CEFEPIME 1GM/ 50ML 50 ML IV SCH (22:00)
[2023-12-06] MEDS: dilTIAZem 25 MG/5 ML VIAL IV ONE (00:23)
[2023-12-06] MEDS: AMIODARONE BOLUS KIT 100 ML IV ONE (00:36)
[2023-12-06] MEDS: AMIODARONE 450mg/250ml AE 250 ML IV SCH ×2 (01:00→06:46)
[2023-12-06 03:56] LABS: Basophils # (auto) 0 10 ^3/uL (0-0.2); Basophils % (auto) 0.1 % (0.0-2.0); Eosinophils # (auto) 0 10 ^3/uL (0-0.8); Eosinophils % (auto) 0.1 % (0.0-7.0); Hemoglobin 14.2 g/dL (12.2-16.2); Lymphocytes # (auto) 0.8 10 ^3/uL (0.4-5.4); Lymphocytes % (auto) 7.1 % (10.0-50.0); Mean Corpuscular Hgb Conc. 33.9 g/dL (32.0-36.0); Mean Corpuscular Volume 91.3 fL (80.0-100.0); Monocytes # (auto) 0.9 10 ^3/uL (0-1.3); Monocytes % (auto) 8.2 % (0.0-12.0); Neutrophils # (auto) 9.5 10 ^3/uL (1.6-8.6); Neutrophils % (auto) 84.5 % (37.0-80.0); Nucleated Red Blood Cells % 0.2 %; Platelet Count (auto) 113 10^3/uL (140-450); Red Blood Cells 4.59 10^6/uL (4.0-5.20); Red Cell Distribution Width 17.1 % (11.8-14.3); White Blood Cell 11.3 10^3/uL (4.4-10.8)
[2023-12-06 04:10] LABS: Alanine Aminotransferase 40 U/L (7-40); Albumin 4.2 g/dL (3.2-4.8); Alkaline Phosphatase 149 U/L (46-116); Anion Gap 14 (5-15); Aspartate Aminotransferase 55 U/L (13-40); Blood Urea Nitrogen 39 mg/dL (9-23); Calcium 10.5 mg/dL (8.7-10.4); Carbon Dioxide 14 mmol/L (20-30); Chloride 119 mmol/L (98-107); Glucose 211 mg/dL (74-106)
[2023-12-06 04:11] LABS: Bilirubin, Total 1.9 mg/dL (0.2-1.0); Total Protein 7.8 g/dL (5.7-8.2)
[2023-12-06] MEDS: SODIUM BICARB 8.4% 50Meq/50ml SYR Vial IV ONE (04:17)
[2023-12-06 04:23] LABS: Sodium 147 mmol/L (136-145)
[2023-12-06] MEDS: POTASSIUM CHL 20MEQ/100ML 100 ML IV SCH (05:51)
[2023-12-06 07:30] VITALS: PULSE 99; RESP 22; O2SAT 97
[2023-12-06] MEDS: CEFEPIME 1GM/ 50ML 50 ML IV SCH (10:00)
[2023-12-06] MEDS ORDERED: LACTULOSE 20Gm/30ML SOLN NG SCH (10:15)
[2023-12-06] MEDS: POTASSIUM EFFERVESENT TAB 25 MEQ PO ONE (13:09)
[2023-12-06] MEDS: rifAXIMin 550 MG TAB NG SCH (13:09)
[2023-12-06] MEDS: LACTULOSE 20Gm/30ML SOLN PO SCH (13:09)
[2023-12-06] MEDS: SOD CHL 0.9%/ KCL 40MEQ 1,000 ML IV SCH (13:11)
[2023-12-06] MEDS: POTASSIUM EFFERVESENT TAB 25 MEQ NG ONE (13:18)
[2023-12-06 14:31] LABS: Anion Gap 13 (5-15); Carbon Dioxide 19 mmol/L (20-30); Chloride 115 mmol/L (98-107); Potassium 3.4 mmol/L (3.5-5.1); Sodium 147 mmol/L (136-145)
[2023-12-06 14:37] LABS: BUN/Creatinine Ratio 18.4 (10.0-20.0); Blood Urea Nitrogen 52 mg/dL (9-23); Glucose 168 mg/dL (74-106)
[2023-12-06 18:20] VITALS: BP 125/66; PULSE 103; RESP 20; TEMP 98; O2SAT 99
[2023-12-06 20:00] VITALS: PULSE 104; RESP 18
[2023-12-06 21:00] VITALS: BP 117/49; PULSE 101; RESP 17; TEMP 97.7; O2SAT 98
[2023-12-06] MEDS: METOPROLOL TARTRATE 25 MG TAB PO SCH (22:13)
[2023-12-06] MEDS: SODIUM BICARB 8.4% 50Meq/50ml SYR INJ ONE (23:06)
[2023-12-06] MEDS: SODIUM BICARB 50mEq/50ml Vial 75 ML in SOD CHL 0.45% 1,000 ML IV SCH (23:09)
[2023-12-07] VITALS (8 sets, daily range): BP systolic 103–114; BP diastolic 40–49; PULSE 55–71; RESP 14–18; TEMP 97.2–98.4; O2SAT 98–100
[2023-12-07 07:16] LABS: Basophils # (auto) 0 10 ^3/uL (0-0.2); Basophils % (auto) 0.2 % (0.0-2.0); Eosinophils # (auto) 0 10 ^3/uL (0-0.8); Eosinophils % (auto) 0.3 % (0.0-7.0); Hematocrit 35.4 % (36.0-46.0); Hemoglobin 11.9 g/dL (12.2-16.2); Lymphocytes # (auto) 0.8 10 ^3/uL (0.4-5.4); Lymphocytes % (auto) 9.2 % (10.0-50.0); Mean Corpuscular Hemoglobin 30.7 pg (28.0-32.0); Mean Corpuscular Hgb Conc. 33.5 g/dL (32.0-36.0); Mean Corpuscular Volume 91.9 fL (80.0-100.0); Monocytes # (auto) 0.7 10 ^3/uL (0-1.3); Monocytes % (auto) 8.4 % (0.0-12.0); Neutrophils # (auto) 7.2 10 ^3/uL (1.6-8.6); Neutrophils % (auto) 81.9 % (37.0-80.0); Nucleated Red Blood Cells % 0.3 %; Platelet Count (auto) 75 10^3/uL (140-450); Red Blood Cells 3.85 10^6/uL (4.0-5.20); Red Cell Distribution Width 16.9 % (11.8-14.3); White Blood Cell 8.8 10^3/uL (4.4-10.8)
[2023-12-07 07:27] LABS: Alanine Aminotransferase 37 U/L (7-40); Albumin 3.4 g/dL (3.2-4.8); Alkaline Phosphatase 122 U/L (46-116); Anion Gap 13 (5-15); Aspartate Aminotransferase 57 U/L (13-40); BUN/Creatinine Ratio 18.4 (10.0-20.0); Blood Urea Nitrogen 49 mg/dL (9-23); Calcium 9.4 mg/dL (8.7-10.4); Carbon Dioxide 17 mmol/L (20-30); Chloride 122 mmol/L (98-107); Glucose 146 mg/dL (74-106); Potassium 3.5 mmol/L (3.5-5.1); Sodium 152 mmol/L (136-145); Total Protein 6.2 g/dL (5.7-8.2)
[2023-12-07] MEDS: CHOLECALCIFEROL (VITD3) 1,000UNIT=25mCg TAB PO SCH (09:49)
[2023-12-07] MEDS: D5W 5% 1,000 ML IV SCH (16:49)
[2023-12-07] MEDS: METOPROLOL TARTRATE 25 MG TAB NG SCH (22:00)
[2023-12-08] VITALS (7 sets, daily range): BP systolic 99–112; BP diastolic 40–52; PULSE 60–72; RESP 16–20; TEMP 97.2–98.7; O2SAT 98–99
[2023-12-08] MEDS: LACTULOSE 20Gm/30ML SOLN NG SCH
[2023-12-08] MEDS: MIDODRINE HCL 10 MG TAB NG ONE (02:59)
[2023-12-08 06:58] LABS: Alanine Aminotransferase 35 U/L (7-40); Albumin 2.9 g/dL (3.2-4.8); Alkaline Phosphatase 107 U/L (46-116); Anion Gap 9 (5-15); Aspartate Aminotransferase 50 U/L (13-40); BUN/Creatinine Ratio 26.7 (10.0-20.0); Blood Urea Nitrogen 54 mg/dL (9-23); Carbon Dioxide 18 mmol/L (20-30); Glucose 138 mg/dL (74-106); Sodium 138 mmol/L (136-145)
[2023-12-08 06:59] LABS: Bilirubin, Total 1.7 mg/dL (0.2-1.0)
[2023-12-08 07:02] LABS: Chloride 111 mmol/L (98-107)
[2023-12-08 07:04] LABS: Potassium 2.5 mmol/L (3.5-5.1)
[2023-12-08 07:25] LABS: INR 1.51 (0.9-1.15); Prothrombin Time 15.5 sec (9.3-11.8)
[2023-12-08] MEDS ORDERED: POTASSIUM CHLORIDE 40 MEQ in SOD CHL 0.45% 1,000 ML IV SCH (07:30)
[2023-12-08 11:15] LABS: Base Excess -5.4 mmol/L (-2.0-3.0)
[2023-12-08] MEDS: MIDODRINE HCL 10 MG TAB NG SCH (12:28)
[2023-12-08] MEDS: POTASSIUM CHL 20MEQ/100ML 100 ML IV SCH (12:29)
[2023-12-08] MEDS: DAPTOmycin 400 MG in SODIUM CHL 0.9% 50 ML IV SCH (15:12)
[2023-12-08] MEDS ORDERED: THROAT LOZENGES(CEPASTAT) MT PRN (16:30)
[2023-12-08] MEDS: OCTREOTIDE ACETATE 100 MCG/ML VL SUBCUT ONE (17:18)
[2023-12-08 17:28] LABS: Anion Gap 8 (5-15); Carbon Dioxide 18 mmol/L (20-30); Chloride 112 mmol/L (98-107); Potassium 2.9 mmol/L (3.5-5.1); Sodium 138 mmol/L (136-145)
[2023-12-08 17:29] LABS: Calcium 8.6 mg/dL (8.7-10.4)
[2023-12-08 17:34] LABS: BUN/Creatinine Ratio 19.5 (10.0-20.0); Glucose 154 mg/dL (74-106)
[2023-12-08 17:47] LABS: Blood Urea Nitrogen 37 mg/dL (9-23)
[2023-12-08] MEDS: OCTREOTIDE ACETATE 100 MCG/ML VL SUBCUT SCH (21:29)
[2023-12-09] VITALS (8 sets, daily range): BP systolic 84–101; BP diastolic 39–50; PULSE 50–99; RESP 17–20; TEMP 97.8–98.4; O2SAT 92–99
[2023-12-09] MEDS: MIDODRINE HCL 10 MG TAB PO ONE (02:00)
[2023-12-09 11:33] LABS: Chloride 107 mmol/L (98-107); Sodium 136 mmol/L (136-145)
[2023-12-09 11:34] LABS: Anion Gap 9 (5-15); Calcium 8.8 mg/dL (8.7-10.4); Carbon Dioxide 20 mmol/L (20-30)
[2023-12-09 11:39] LABS: BUN/Creatinine Ratio 17.4 (10.0-20.0); Blood Urea Nitrogen 32 mg/dL (9-23); Glucose 191 mg/dL (74-106)
[2023-12-10] VITALS (8 sets, daily range): BP systolic 92–105; BP diastolic 40–53; PULSE 51–78; RESP 17–20; TEMP 97–98.3; O2SAT 92–98
[2023-12-10] MEDS: MIDODRINE HCL 10 MG TAB PO ONE (01:20)
[2023-12-11] VITALS (8 sets, daily range): BP systolic 94–123; BP diastolic 45–52; PULSE 52–96; RESP 17–20; TEMP 97.9–98.9; O2SAT 92–98
[2023-12-11] MEDS: MIDODRINE HCL 10 MG TAB PO SCH (02:02)
[2023-12-11 07:46] LABS: INR 1.41 (0.9-1.15); Prothrombin Time 14.6 sec (9.3-11.8)
[2023-12-11 07:57] LABS: Alanine Aminotransferase 43 U/L (7-40); Alkaline Phosphatase 103 U/L (46-116); Anion Gap 8 (5-15); BUN/Creatinine Ratio 18.3 (10.0-20.0); Blood Urea Nitrogen 23 mg/dL (9-23); Calcium 8.7 mg/dL (8.7-10.4); Carbon Dioxide 22 mmol/L (20-30); Chloride 108 mmol/L (98-107); Glucose 170 mg/dL (74-106); Potassium 2.8 mmol/L (3.5-5.1); Sodium 138 mmol/L (136-145)
[2023-12-11 07:58] LABS: Albumin 2.8 g/dL (3.2-4.8); Aspartate Aminotransferase 50 U/L (13-40)
[2023-12-11 07:59] LABS: Basophils # (auto) 0 10 ^3/uL (0-0.2); Bilirubin, Total 1.7 mg/dL (0.2-1.0); Eosinophils # (auto) 0.1 10 ^3/uL (0-0.8); Hematocrit 30.9 % (36.0-46.0); Lymphocytes # (auto) 0.9 10 ^3/uL (0.4-5.4); Nucleated Red Blood Cells % 0.1 %; Total Protein 5.1 g/dL (5.7-8.2); White Blood Cell 4.2 10^3/uL (4.4-10.8)
[2023-12-11 08:01] LABS: Basophils % (auto) 0.3 % (0.0-2.0); Eosinophils % (auto) 2.3 % (0.0-7.0); Hemoglobin 10.6 g/dL (12.2-16.2); Lymphocytes % (auto) 21.7 % (10.0-50.0); Mean Corpuscular Hemoglobin 31.7 pg (28.0-32.0); Mean Corpuscular Hgb Conc. 34.3 g/dL (32.0-36.0); Mean Corpuscular Volume 92.6 fL (80.0-100.0); Monocytes # (auto) 0.5 10 ^3/uL (0-1.3); Monocytes % (auto) 12.7 % (0.0-12.0); Neutrophils # (auto) 2.6 10 ^3/uL (1.6-8.6); Platelet Count (auto) 45 10^3/uL (140-450); Red Blood Cells 3.33 10^6/uL (4.0-5.20); Red Cell Distribution Width 16.8 % (11.8-14.3)
[2023-12-11 09:16] LABS: Anisocytosis Slight; Platelet Estimate Decreased
[2023-12-11] MEDS: POTASSIUM CHL 20MEQ/100ML 100 ML IV SCH (11:10)
[2023-12-11] MEDS: MICAFUNGIN SODIUM 100 MG in SODIUM CHL 0.9% 100 ML IV SCH (11:11)
[2023-12-11] MEDS ORDERED: POTASSIUM CHL 20 Meq TABLET PO ONE (16:30)
[2023-12-11] MEDS: POTASSIUM CHL 20 Meq TABLET PO ONE ×2 (17:25→19:14)
[2023-12-11] MEDS: DAPTOmycin 400 MG in SODIUM CHL 0.9% 50 ML IV SCH (17:26)
[2023-12-12] VITALS (8 sets, daily range): BP systolic 93–113; BP diastolic 41–49; PULSE 55–75; RESP 16–20; TEMP 97.6–98.9; O2SAT 92–97
[2023-12-12 10:56] LABS: Chloride 112 mmol/L (98-107); Potassium 3.2 mmol/L (3.5-5.1); Sodium 144 mmol/L (136-145)
[2023-12-12 10:57] LABS: Anion Gap 7 (5-15); Calcium 8.7 mg/dL (8.7-10.4); Carbon Dioxide 25 mmol/L (20-30)
[2023-12-12 11:02] LABS: BUN/Creatinine Ratio 13.9 (10.0-20.0); Blood Urea Nitrogen 17 mg/dL (9-23); Glucose 184 mg/dL (74-106)
[2023-12-12] MEDS: POTASSIUM CHL 20 Meq TABLET PO ONE (15:51)
[2023-12-12 16:08] LABS: Basophils # (auto) 0 10 ^3/uL (0-0.2); Eosinophils # (auto) 0.1 10 ^3/uL (0-0.8); Mean Corpuscular Hgb Conc. 32.6 g/dL (32.0-36.0); Platelet Count (auto) 49 10^3/uL (140-450); Red Cell Distribution Width 17.5 % (11.8-14.3); White Blood Cell 5.5 10^3/uL (4.4-10.8)
[2023-12-12 16:09] LABS: Basophils % (auto) 0.5 % (0.0-2.0); Eosinophils % (auto) 2.2 % (0.0-7.0); Hematocrit 30.6 % (36.0-46.0); Lymphocytes # (auto) 0.9 10 ^3/uL (0.4-5.4); Lymphocytes % (auto) 16.9 % (10.0-50.0); Mean Corpuscular Hemoglobin 30.9 pg (28.0-32.0); Mean Corpuscular Volume 94.6 fL (80.0-100.0); Monocytes # (auto) 0.6 10 ^3/uL (0-1.3); Monocytes % (auto) 11.5 % (0.0-12.0); Neutrophils # (auto) 3.8 10 ^3/uL (1.6-8.6); Neutrophils % (auto) 68.9 % (37.0-80.0); Red Blood Cells 3.23 10^6/uL (4.0-5.20)
[2023-12-12 16:14] LABS: Chloride 112 mmol/L (98-107); Potassium 3.7 mmol/L (3.5-5.1); Sodium 139 mmol/L (136-145)
[2023-12-12 16:15] LABS: Anion Gap 5 (5-15); Calcium 8.5 mg/dL (8.7-10.4); Carbon Dioxide 22 mmol/L (20-30)
[2023-12-12 16:20] LABS: BUN/Creatinine Ratio 13.4 (10.0-20.0); Blood Urea Nitrogen 15 mg/dL (9-23); Glucose 190 mg/dL (74-106)
[2023-12-12] MEDS ORDERED: CEFEPIME 1GM/ 50ML 50 ML IV SCH (22:00)
[2023-12-13] VITALS (10 sets, daily range): BP systolic 94–120; BP diastolic 42–67; PULSE 67–94; RESP 18–22; TEMP 97.8–98.4; O2SAT 94–98
[2023-12-13 11:39] LABS: Basophils # (auto) 0 10 ^3/uL (0-0.2); Basophils % (auto) 0.4 % (0.0-2.0); Eosinophils # (auto) 0.1 10 ^3/uL (0-0.8); Eosinophils % (auto) 2.2 % (0.0-7.0); Hemoglobin 9.9 g/dL (12.2-16.2); Lymphocytes # (auto) 0.7 10 ^3/uL (0.4-5.4); Lymphocytes % (auto) 18.3 % (10.0-50.0); Mean Corpuscular Hemoglobin 31.4 pg (28.0-32.0); Mean Corpuscular Volume 95.1 fL (80.0-100.0); Monocytes # (auto) 0.4 10 ^3/uL (0-1.3); Neutrophils # (auto) 2.8 10 ^3/uL (1.6-8.6); Neutrophils % (auto) 70.1 % (37.0-80.0); Red Blood Cells 3.16 10^6/uL (4.0-5.20); Red Cell Distribution Width 17.4 % (11.8-14.3)
[2023-12-13 11:42] LABS: Platelet Count (auto) 42 10^3/uL (140-450)
[2023-12-13 11:49] LABS: Alanine Aminotransferase 42 U/L (7-40); Albumin 2.6 g/dL (3.2-4.8); Alkaline Phosphatase 99 U/L (46-116); Anion Gap 8 (5-15); Aspartate Aminotransferase 47 U/L (13-40); Blood Urea Nitrogen 17 mg/dL (9-23); Calcium 8.3 mg/dL (8.7-10.4); Carbon Dioxide 22 mmol/L (20-30); Chloride 112 mmol/L (98-107); Glucose 278 mg/dL (74-106); Magnesium 1.6 mg/dL (1.6-2.6); Potassium 3.6 mmol/L (3.5-5.1); Sodium 142 mmol/L (136-145)
[2023-12-13 11:50] LABS: Phosphorus 1.9 mg/dL (2.4-5.1)
[2023-12-13 11:51] LABS: Bilirubin, Total 1.4 mg/dL (0.2-1.0); Total Protein 4.7 g/dL (5.7-8.2)
[2023-12-13] MEDS: MIDODRINE HCL 10 MG TAB PO SCH (12:21)
[2023-12-13] MEDS: rifAXIMin 550 MG TAB PO SCH (22:01)
[2023-12-13] MEDS: CEFEPIME 2GM/50ML NS 50 ML IV SCH (22:03)
[2023-12-13] MEDS: LACTULOSE 20Gm/30ML SOLN PO SCH (23:30)
[2023-12-14] VITALS (9 sets, daily range): BP systolic 105–121; BP diastolic 46–68; PULSE 65–92; RESP 16–20; TEMP 97.9–98.8; O2SAT 94–97
[2023-12-14] MEDS: METOPROLOL TARTRATE 25 MG TAB PO SCH (09:29)
[2023-12-14 12:17] LABS: Basophils # (auto) 0 10 ^3/uL (0-0.2); Basophils % (auto) 1.1 % (0.0-2.0); Eosinophils # (auto) 0.1 10 ^3/uL (0-0.8); Eosinophils % (auto) 2.2 % (0.0-7.0); Hematocrit 29.7 % (36.0-46.0); Hemoglobin 9.6 g/dL (12.2-16.2); Lymphocytes # (auto) 0.6 10 ^3/uL (0.4-5.4); Lymphocytes % (auto) 16.4 % (10.0-50.0); Mean Corpuscular Hgb Conc. 32.5 g/dL (32.0-36.0); Mean Corpuscular Volume 95.3 fL (80.0-100.0); Monocytes # (auto) 0.4 10 ^3/uL (0-1.3); Monocytes % (auto) 10.2 % (0.0-12.0); Neutrophils # (auto) 2.6 10 ^3/uL (1.6-8.6); Neutrophils % (auto) 70.1 % (37.0-80.0); Nucleated Red Blood Cells % 0.2 %; Platelet Count (auto) 40 10^3/uL (140-450); Red Blood Cells 3.11 10^6/uL (4.0-5.20); Red Cell Distribution Width 17.8 % (11.8-14.3); White Blood Cell 3.7 10^3/uL (4.4-10.8)
[2023-12-14 12:35] LABS: Alanine Aminotransferase 34 U/L (7-40); Albumin 2.6 g/dL (3.2-4.8); Alkaline Phosphatase 95 U/L (46-116); Anion Gap 5 (5-15); Aspartate Aminotransferase 41 U/L (13-40); BUN/Creatinine Ratio 8.8 (10.0-20.0); Blood Urea Nitrogen 10 mg/dL (9-23); Calcium 8.6 mg/dL (8.7-10.4); Carbon Dioxide 22 mmol/L (20-31); Chloride 112 mmol/L (98-107); Glucose 237 mg/dL (74-106); Magnesium 1.7 mg/dL (1.6-2.6); Phosphorus 2.1 mg/dL (2.4-5.1); Potassium 3.7 mmol/L (3.5-5.1); Sodium 139 mmol/L (136-145)
[2023-12-14 12:36] LABS: Bilirubin, Total 1.3 mg/dL (0.2-1.0)
[2023-12-15] VITALS (9 sets, daily range): BP systolic 97–118; BP diastolic 31–94; PULSE 49–64; RESP 16–19; TEMP 97.4–98.9; O2SAT 93–97
[2023-12-15 10:39] LABS: Basophils # (auto) 0 10 ^3/uL (0-0.2); Eosinophils # (auto) 0.1 10 ^3/uL (0-0.8); Hemoglobin 9.6 g/dL (12.2-16.2); Neutrophils # (auto) 2.4 10 ^3/uL (1.6-8.6); Red Blood Cells 3.06 10^6/uL (4.0-5.20); White Blood Cell 3.6 10^3/uL (4.4-10.8)
[2023-12-15 10:41] LABS: Basophils % (auto) 0.8 % (0.0-2.0); Eosinophils % (auto) 3.2 % (0.0-7.0); Lymphocytes # (auto) 0.8 10 ^3/uL (0.4-5.4); Lymphocytes % (auto) 21.2 % (10.0-50.0); Mean Corpuscular Hemoglobin 31.2 pg (28.0-32.0); Mean Corpuscular Hgb Conc. 32.9 g/dL (32.0-36.0); Mean Corpuscular Volume 94.9 fL (80.0-100.0); Monocytes # (auto) 0.3 10 ^3/uL (0-1.3); Monocytes % (auto) 9.1 % (0.0-12.0); Neutrophils % (auto) 65.7 % (37.0-80.0); Nucleated Red Blood Cells % 0.1 %; Platelet Count (auto) 41 10^3/uL (140-450); Red Cell Distribution Width 17.1 % (11.8-14.3)
[2023-12-16] VITALS (8 sets, daily range): BP systolic 99–133; BP diastolic 40–51; PULSE 52–80; RESP 16–20; TEMP 97.5–98.7; O2SAT 95–97
[2023-12-16 06:10] LABS: Basophils # (auto) 0 10 ^3/uL (0-0.2); Eosinophils # (auto) 0.1 10 ^3/uL (0-0.8); Hemoglobin 10.1 g/dL (12.2-16.2); White Blood Cell 4.2 10^3/uL (4.4-10.8)
[2023-12-16 06:15] LABS: Basophils % (auto) 0.5 % (0.0-2.0); Eosinophils % (auto) 2.6 % (0.0-7.0); Hematocrit 29.9 % (36.0-46.0); Lymphocytes # (auto) 0.9 10 ^3/uL (0.4-5.4); Lymphocytes % (auto) 20.6 % (10.0-50.0); Mean Corpuscular Hemoglobin 31.8 pg (28.0-32.0); Mean Corpuscular Hgb Conc. 33.7 g/dL (32.0-36.0); Mean Corpuscular Volume 94.3 fL (80.0-100.0); Monocytes # (auto) 0.3 10 ^3/uL (0-1.3); Monocytes % (auto) 8.1 % (0.0-12.0); Neutrophils # (auto) 2.8 10 ^3/uL (1.6-8.6); Neutrophils % (auto) 68.2 % (37.0-80.0); Nucleated Red Blood Cells % 0.1 %; Platelet Count (auto) 41 10^3/uL (140-450); Red Blood Cells 3.17 10^6/uL (4.0-5.20); Red Cell Distribution Width 16.8 % (11.8-14.3)
[2023-12-17] VITALS (9 sets, daily range): BP systolic 93–122; BP diastolic 42–61; PULSE 51–72; RESP 18–20; TEMP 98–98.9; O2SAT 92–99
[2023-12-17 06:17] LABS: Basophils # (auto) 0 10 ^3/uL (0-0.2); Eosinophils # (auto) 0.1 10 ^3/uL (0-0.8); Hemoglobin 9.7 g/dL (12.2-16.2); Red Blood Cells 3.14 10^6/uL (4.0-5.20)
[2023-12-17 06:21] LABS: Basophils % (auto) 0.9 % (0.0-2.0); Eosinophils % (auto) 2.4 % (0.0-7.0); Hematocrit 30.5 % (36.0-46.0); Lymphocytes # (auto) 1.1 10 ^3/uL (0.4-5.4); Lymphocytes % (auto) 22.6 % (10.0-50.0); Mean Corpuscular Hgb Conc. 31.9 g/dL (32.0-36.0); Mean Corpuscular Volume 97.1 fL (80.0-100.0); Monocytes # (auto) 0.3 10 ^3/uL (0-1.3); Neutrophils # (auto) 3.2 10 ^3/uL (1.6-8.6); Neutrophils % (auto) 67.1 % (37.0-80.0); Nucleated Red Blood Cells % 0.1 %; Red Cell Distribution Width 17.4 % (11.8-14.3); White Blood Cell 4.7 10^3/uL (4.4-10.8)
[2023-12-17 06:32] LABS: Platelet Count (auto) 37 10^3/uL (140-450)
[2023-12-17] MEDS ORDERED: MICAFUNGIN SODIUM 100 MG in SODIUM CHL 0.9% 100 ML IV SCH (12:30)
[2023-12-17] MEDS: MICAFUNGIN SODIUM 100 MG in SODIUM CHL 0.9% 100 ML IV SCH (16:00)
[2023-12-18 05:00] VITALS: BP 106/46; PULSE 53; RESP 19; TEMP 97.8; O2SAT 96
[2023-12-18 08:05] VITALS: O2SAT 93
[2023-12-18 08:38] VITALS: BP 96/40; PULSE 45; RESP 16; TEMP 97.8; O2SAT 96
[2023-12-18 09:58] LABS: Basophils # (auto) 0 10 ^3/uL (0-0.2); Eosinophils # (auto) 0.1 10 ^3/uL (0-0.8); Hemoglobin 9.7 g/dL (12.2-16.2); Lymphocytes # (auto) 0.9 10 ^3/uL (0.4-5.4); Monocytes # (auto) 0.3 10 ^3/uL (0-1.3); Neutrophils # (auto) 2.8 10 ^3/uL (1.6-8.6); Platelet Count (auto) 39 10^3/uL (140-450)
[2023-12-18 10:13] LABS: Basophils % (auto) 0.9 % (0.0-2.0); Eosinophils % (auto) 2.8 % (0.0-7.0); Hematocrit 29.6 % (36.0-46.0); Mean Corpuscular Hemoglobin 31.5 pg (28.0-32.0); Mean Corpuscular Hgb Conc. 32.7 g/dL (32.0-36.0); Mean Corpuscular Volume 96.3 fL (80.0-100.0); Monocytes % (auto) 7.4 % (0.0-12.0); Neutrophils % (auto) 66.9 % (37.0-80.0); Nucleated Red Blood Cells % 0.2 %; Red Blood Cells 3.08 10^6/uL (4.0-5.20); Red Cell Distribution Width 17.2 % (11.8-14.3); White Blood Cell 4.2 10^3/uL (4.4-10.8)
[2023-12-18 13:00] VITALS: BP 95/34; PULSE 60; RESP 16; TEMP 98.3; O2SAT 95
[2023-12-18] MEDS ORDERED: LACT10SO3 PO (13:52)
[2023-12-18] MEDS ORDERED: RIFA550T PO (13:52)
[2023-12-18 17:58] VITALS: BP 110/64
== END 2023-12-18 18:30 | disposition home health service (06) | DRG 720 ==
LOC: ER 08:27 → TELE 14:31 → TELE-CENTR 12-06 18:16
PROVIDERS: ADMIT Nurse Practitioner Acute Care; ATTEND Nurse Practitioner Acute Care
PROC: 05HB33Z Insertion of Infusion Device into Right Basilic Vein, Percutaneous Approach (ICD-10-PCS; principal; 2023-12-11)
PROC: B54MZZA Ultrasonography of Right Upper Extremity Veins, Guidance (ICD-10-PCS; 2023-12-11)
DX: A41.81 Sepsis due to Enterococcus (principal); N17.0 Acute kidney failure with tubular necrosis; K76.7 Hepatorenal syndrome; G93.41 Metabolic encephalopathy; D61.818 Other pancytopenia; E87.20 Acidosis, unspecified; D63.8 Anemia in other chronic diseases classified elsewhere; I48.20 Chronic atrial fibrillation, unspecified; E86.0 Dehydration; K76.82 Hepatic encephalopathy; K74.69 Other cirrhosis of liver; E11.22 Type 2 diabetes mellitus with diabetic chronic kidney disease; I12.9 Hypertensive chronic kidney disease with stage 1 through stage 4 chronic kidney disease, or unspecified chronic kidney disease; N18.31 Chronic kidney disease, stage 3a; N39.0 Urinary tract infection, site not specified; E11.65 Type 2 diabetes mellitus with hyperglycemia; N12 Tubulo-interstitial nephritis, not specified as acute or chronic; N20.0 Calculus of kidney; E87.6 Hypokalemia; F17.200 Nicotine dependence, unspecified, uncomplicated; Z85.048 Personal history of other malignant neoplasm of rectum, rectosigmoid junction, and anus; Z93.3 Colostomy status; Z90.49 Acquired absence of other specified parts of digestive tract; Z90.710 Acquired absence of both cervix and uterus; Z92.21 Personal history of antineoplastic chemotherapy; Z83.3 Family history of diabetes mellitus; Z88.8 Allergy status to other drugs, medicaments and biological substances; Z79.4 Long term (current) use of insulin; Z79.899 Other long term (current) drug therapy; B95.2 Enterococcus as the cause of diseases classified elsewhere
CPT/HCPCS: 36415; 36600; 71045; 74176; 76775; 80048; 80053; 80307; 80320; 81001; 82140; 82306; 82378; 82570; 82805; 82962; 83735; 83930; 83935; 84100; 84156; 84300; 84484; 85025; 85610; 86304; 87040; 87086; 87088; 87186; 92507; 92610; 93005; 97110; 97116; 97163; 97530; 99291; G0378; J0692; J1815; J2001; J2248; J3480

== ENCOUNTER 2024-04-12 15:23 | Inpatient (IN) | payer MEDICAID ==
[~2024-04-12] VITALS: Ht 152.4 cm; Wt 65.0 kg
[~2024-04-12 15:23] MED LIST changes: -CEPH250C PO; -SODI650T PO
--- NOTE | 2024-04-12 16:00 | ECG ---
[facility] Test Date: 2024-04-12 Test Time: 15:55:27 Pat Name: GRACIE NELSON Department: ER Room: Gender: F Rework Machine Operator: YARITZA : 1960 Requested By: JACKI CALERO Order Number: [id number] Reading MD: Kip Glez Measurements Intervals [place] Rate: 88 P: -78 MI: 154 QRS: -27 QRSD: 104 T: -41 QT: 447 QTc: 541 Interpretive Statements Sinus or ectopic atrial rhythm Borderline left axis deviation Probable anteroseptal infarct, old Repol abnrm suggests ischemia, inferior leads Prolonged QT interval Electronically Signed On 04-12-2024 17:26:41 PST by Kip Glez Please click the below link to view image of tracing.
--- NOTE | 2024-04-12 16:12 | DVH ---
EXAM: CT HEAD WITHOUT CONTRAST HISTORY: ALOC COMPARISON: CT HEAD WITHOUT CONTRAST on DOS: 10/23/23, CT HEAD WITHOUT CONTRAST on DOS: 10/09/23 TECHNIQUE: Axial images of the head were obtained and reformatted in coronal and sagittal planes. All CT scans at this medical facility are performed using dose modulation techniques as appropriate t o a performed exam including the following: Automated exposure control was utilized; adjustment of th e MA and/or KV according to patient size; and use of iterative reconstruction technique. CT Dose: CTDI volume is 51 mGy. Dose-length product is 826 mGy*cm FINDINGS: There is no evidence of acute intracranial hemorrhage, mass, mass effect midline shift. There is no h ydrocephalus or extra-axial fluid collection. Silva-white matter differentiation is maintained. The visualized paranasal sinuses and mastoid air cells are clear. The calvarium is intact. IMPRESSION: 1. No acute intracranial process. HS:Y
[2024-04-12 16:49] LABS: Alanine Aminotransferase 35 U/L (7-40); Albumin 3.8 g/dL (3.2-4.8); Alkaline Phosphatase 106 U/L (46-116); Anion Gap 11 (5-15); BUN/Creatinine Ratio 12.9 (10.0-20.0); Calcium 9.2 mg/dL (8.7-10.4); Sodium 142 mmol/L (136-145); Total Protein 6.4 g/dL (5.7-8.2)
[2024-04-12 16:56] LABS: Hemoglobin 11.7 g/dL (12.2-16.2); White Blood Cell 5.2 10^3/uL (4.4-10.8)
[2024-04-12 16:59] LABS: Hematocrit 35.1 % (36.0-46.0); Mean Corpuscular Hemoglobin 31.6 pg (28.0-32.0); Mean Corpuscular Hgb Conc. 33.4 g/dL (32.0-36.0); Mean Corpuscular Volume 94.6 fL (80.0-100.0); Platelet Count (auto) 55 10^3/uL (140-450); Red Blood Cells 3.72 10^6/uL (4.0-5.20); Red Cell Distribution Width 18.1 % (11.8-14.3)
[2024-04-12 17:05] VITALS: PULSE 86; RESP 18; O2SAT 98
[2024-04-12 17:14] LABS: Band Neutrophils % (manual) 0; Basophils % (manual) 0 (0.0-2.0); Blast Cells 0; Metamyelocytes % 0; Myelocytes % 0; Promyelocytes % 0; Reactive Lymphocytes 0
[2024-04-12 17:19] LABS: Aspartate Aminotransferase 42 U/L (13-40); Bilirubin, Total 2.8 mg/dL (0.2-1.0); Blood Urea Nitrogen 25 mg/dL (9-23); Carbon Dioxide 15 mmol/L (20-31); Chloride 116 mmol/L (98-107); Glucose 196 mg/dL (74-106)
[2024-04-12 17:21] LABS: Potassium 2.1 mmol/L (3.5-5.1)
--- NOTE | 2024-04-12 17:56 | ED.PDOC ---
Altered Mental Status HPI Comments 64Y F with PMHx CA presents to ED with embroiderer for chief complaint ALOC. Pt was last seen normal at 0900 today when pt suddenly became unresponsive to name. Per embroiderer, pt has h/o high ammonia levels and had all the cancer removed in 2018. Pt has had colostomy and urostomy since the cancer removal. No other symptoms reported. Pt is altered upon ED arrival and does not follow commands. Chief Complaint: ALOC Time Seen by MD: 16:05 Primary Care Provider: [facility] Reviewed Notes: Nurses Notes, Medications, Allergies Allergies: Coded Allergies: Codeine (Verified Allergy, Unknown, 08/04/23) Home Meds Active Scripts Lactulose (Lactulose) 10 Gm/15 Ml Rita, 10 GM PO TID for 30 Days, #120 ML 3 Refills Prov:GAYATRI DODGE TRUCK CRANE OPERATOR 12/18/23 Rifaximin (Xifaxan) 550 Mg Tab, 550 MG PO BID for 30 Days, #60 TAB 2 Refills Prov:GAYATRI DODGE TRUCK CRANE OPERATOR 12/18/23 Pantoprazole Sodium Sesquihydr (Pantoprazole Sodium) 40 Mg Tab, 40 MG PO DAILY@0600 for 30 Days, #30 TAB 2 Refills Prov:KODAK TORRE MD 11/01/23 Spironolactone (Aldactone) 25 Mg Tab, 25 MG PO DAILY for 30 Days, #30 TAB 3 Refills Prov:KODAK TORRE MD 11/01/23 Potassium Chloride (Potassium Chloride ER) 20 Meq Tab, 1 TAB PO BID for 90 Days, #180 TAB Prov:OJ LYNCH RESIDENT 10/12/23 Lactulose (Lactulose) 10 Gm/15 Ml Rita, 30 ML PO TID for 90 Days, #5 ML 5 Refills Prov:OJ LYNCH RESIDENT 10/12/23 Reported Medications Ergocalciferol (Vitamin D) 50,000 Unit Cap, 1 CAP PO QWEEKLY 10/10/23 Omeprazole (Omeprazole Dr) 20 Mg Cap, 1 CAP PO DAILY 10/10/23 Ferrous Sulfate (Ferosul) 325 Mg Tab, 1 TAB PO DAILY 10/10/23 Insulin Glargine (Basaglar Kwikpen) 100 Unit/Ml Inj, SC 10/10/23 Sertraline Hcl (Sertraline Hcl) 100 Mg Tab, 1 TAB PO DAILY 10/10/23 Hydrocortone (Hydrocortisone 2.5%) 1 Applic Ap, TOP 10/10/23 Information Source: Patient, Relative Mode of Arrival: Wheelchair Severity: Severe, Unable to Care for Self Timing: Hours Duration: Since onset Quality: Decreased Alertness, Change in Behavior, Confusion Recent: None History of: Diabetes, Other Associated Signs and Symptoms: Other Past Medical History PAST MEDICAL HISTORY: Cancer, CKF, DM, UTI'S Surgical History: OBSTETRICIAN GYNECOLOGIST History: No Pertinent OBSTETRICIAN GYNECOLOGIST History Family History Family History: Unknown Social History Smoker: Non-Smoker Alcohol: Denies ETOH Use Drugs: Denies Drug Use Lives In: Home Unable to Obtain due to: Altered Mental Status Physical Exam General Appearance: Other (ALTERED, DOES NOT FOLLOW COMMANDS) HEENT: Normal ENT Inspection, Pharynx Normal, TMs Normal Neck: Full Range of Motion, Non-Tender, Normal, Normal Inspection Respiratory: Chest Non-Tender, Lungs Clear, No Accessory Muscle Use, No Respiratory Distress, Normal Breath Sounds Cardiovascular: No Edema, No JVD, No Murmur, No Gallop, Normal Peripheral Pulses, Regular Rate/Rhythm Breast Exam: Deferred Gastrointestinal: No Organomegaly, Non Tender, Normal Bowel Sounds, Other (OSTOMY PRESENT) Genitalia: Deferred Pelvic: Deferred Rectal: Deferred Extremities: No calf tenderness, Normal capillary refill, Normal inspection, Normal range of motion, Non-tender, No pedal edema Musculoskeletal : Apperance: Normal Neurologic: Alert, senior vice president II-XII nml as Tested, No Motor Deficits, Normal Affect, Normal Mood, No Sensory Deficits Cerebellar Function: Normal Reflexes: Normal Skin: Dry, Normal Color, Warm Lymphatic: No Adenopathy Was a procedure done? Was a procedure done?: No Differential Diagnosis (ALOC) Differential Diagnosis: Dehydration X-Ray, Labs, Meds, VS Vital Signs Date Time Temp Pulse Resp B/P (MAP) Pulse Ox O2 Delivery O2 Flow Rate FiO2 04/12/24 19:00 78 18 116/48 (70) 96 04/12/24 17:05 98.7 86 18 125/51 (75) 98 98.7 04/12/24 17:05 86 18 98 Room Air* 0 21 04/12/24 15:55 88 04/12/24 15:38 98.6 83 20 133/53 (79) 99 Lab Test 04/12/24 16:15 04/12/24 15:35 Range/Units White Blood Count 5.2 4.4-10.8 10^3/uL Red Blood Count 3.72 L 4.0-5.20 10^6/uL Hemoglobin 11.7 L 12.2-16.2 g/dL Hematocrit 35.1 L 36.0-46.0 % Mean Corpuscular Volume 94.6 80.0-100.0 fL Mean Corpuscular Hemoglobin 31.6 28.0-32.0 pg Mean Corpuscular Hemoglobin Concent 33.4 32.0-36.0 g/dL Red Cell Distribution Width 18.1 H 11.8-14.3 % Platelet Count 55 L 140-450 10^3/uL Mean Platelet Volume 7.8 6.9-10.8 fL Neutrophils (%) (Auto) 37.0-80.0 % Lymphocytes (%) (Auto) 10.0-50.0 % Monocytes (%) (Auto) 0.0-12.0 % Basophils (%) (Auto) 0.0-2.0 % Neutrophils # (Auto) 1.6-8.6 10 ^3/uL Lymphocytes # (Auto) 0.4-5.4 10 ^3/uL Monocytes # (Auto) 0-1.3 10 ^3/uL Differential Total Cells Counted 100.0 100 Neutrophils % (Manual) 86 H 37.0-80.0 Band Neutrophils % (Manual) 0 Lymphocytes % (Manual) 8 L 10.0-50.0 Monocytes % (Manual) 5 0-12 Eosinophils % (Manual) 1 0-7 Basophils % (Manual) 0 0.0-2.0 Metamyelocytes % (manual) 0 Myelocytes % (Manual) 0 Promyelocytes % (Manual) 0 Blast Cells % (Manual) 0 Reactive Lymphocytes 0 Platelet Estimate Decreased Sodium Level 142 136-145 mmol/L Potassium Level 2.1 *L 3.5-5.1 mmol/L Chloride Level 116 H 98-107 mmol/L Carbon Dioxide Level 15 L 20-31 mmol/L Anion Gap 11 5-15 Blood Urea Nitrogen 25 H 9-23 mg/dL Creatinine 1.94 H 0.550-1.02 mg/dL Glomerular Filtration Rate Calc 28 >90 mL/min BUN/Creatinine Ratio 12.9 10.0-20.0 Serum Glucose 196 H 74-106 mg/dL Lactic Acid Level 1.7 0.4-2.0 mmol/L Calcium Level 9.2 8.7-10.4 mg/dL Total Bilirubin 2.8 H 0.2-1.0 mg/dL Aspartate Amino Transferase (AST) 42 H 13-40 U/L Alanine Aminotransferase (ALT) 35 7-40 U/L Alkaline Phosphatase 106 46-116 U/L Ammonia 88 H 11-32 umol/L Total Protein 6.4 5.7-8.2 g/dL Albumin 3.8 3.2-4.8 g/dL POC Glucose 183 H 70-106 mg/dl [place] [id number] Ph: [phone] DIAGNOSTIC IMAGING Diagnostic Imaging Report : [id number] Signed PATIENT: CHELSEA NELSONCCT: [id number] UNIT: [id number] : 1960 LOC: ER ROOM / BED: / AGE / SEX: 64 / F ADM STATUS: REG ER SERVICE 1534 ORDERING PHYSICIAN: JACKI CALERO PROCEDURE(s): HWOCT - HEAD WITHOUT CONTRAST REASON: ALOC ORDER NUMBER(s): [id number], ACCESSION NUMBER(s): [id number] EXAM: CT HEAD WITHOUT CONTRAST HISTORY: ALOC COMPARISON: CT HEAD WITHOUT CONTRAST on DOS: 10/23/23, CT HEAD WITHOUT CONTRAST on DOS: 10/09/23 TECHNIQUE: Axial images of the head were obtained and reformatted in coronal and sagittal planes. All CT scans at this medical facility are performed using dose modulation techniques as appropriate to a performed exam including the following: Automated exposure control was utilized; adjustment of the MA and/or KV according to patient size; and use of iterative reconstruction technique. CT Dose: CTDI volume is 51 mGy. Dose-length product is 826 mGy*cm FINDINGS: There is no evidence of acute intracranial hemorrhage, mass, mass effect midline shift. There is no hydrocephalus or extra-axial fluid collection. Silva-white matter differentiation is maintained. The visualized paranasal sinuses and mastoid air cells are clear. The calvarium is intact. IMPRESSION: 1. No acute intracranial process. HS:Y ATED BY: RICARDO PARKER MD DICTATED DATE/TIME: 04/12/241608 SIGNED BY: RICARDO PARKER MD SIGNED DATE/TIME: 04/12/241608 CC: X-Ray, Labs, Meds, VS Comment PATIENT WILL BE ADMITTED FOR METABOLIC ENCEPHALOPATHY CONCERNS FOR POSSIBLE URINARY TRACT INFECTION, PENDING URINALYSIS PATIENT BE STARTED ON POTASSIUM IV PIGGYBACK PATIENT WILL BE STARTED ON LACTULOSE Time of 1ST Reevaluation: 16:35 Reevaluation 1ST: Unchanged Patient Education/Counseling: Diagnosis, Treatment, Need For Follow Up Family Education/Counseling: Diagnosis, Treatment Departure 1 Departure Time of Disposition: 19:22 Impression: Primary Impression: Hepatic encephalopathy Additional Impressions: Hypokalemia Fpndi-wa-stlwtxp kidney injury Qualified Codes: N17.8 - Other acute kidney failure; N18.32 - Chronic kidney disease, stage 3b Disposition: ADMITTED INPATIENT Condition: Fair Discharged With: Self Critical Care Note Critical Care Time?: No Stability Stability form required: No Heart Score Heart Score: Heart Score Response (Comments) Value History N/A 0 EKG N/A 0 Age N/A 0 Risk Factors N/A 0 Troponin N/A 0 Total 0 I personally scribed for JACKI CALERO ([email or web address]) on 04/12/24 at 17:56. Electronically submitted by Malu Luna ([facility]). JACKI CALERO Apr 12, 2024 17:56
[2024-04-12 18:32] LABS: Eosinophils % (manual) 1 (0-7); Lymphocytes % (manual) 8 (10.0-50.0); Monocytes % (manual) 5 (0-12); Platelet Estimate Decreased
[2024-04-12 19:26] LABS: Urine Bacteria None Seen /hpf (None Seen)
[2024-04-12] MEDS: LACTULOSE 20Gm/30ML SOLN PO ONE (19:30)
[2024-04-12 19:45] VITALS: PULSE 80; RESP 17; O2SAT 95
[2024-04-12 19:48] LABS: Urine Blood 1+ /uL (Negative); Urine Clarity Turbid (Clear); Urine Color Colorless (Yellow); Urine Mucus FEW (None Seen); Urine Protein, UAD 1+ (Negative); Urine Specific Gravity 1.009 (1.001-1.035); Urine Squamous Epithelial Cell None Seen /hpf (<5); Urine Urobilinogen Normal (Negative); Urine WBC 84 /HPF (0-5)
[2024-04-12 20:20] LABS: Amphetamine Screen, Urine Neg (NEGATIVE); Barbiturate Scree,Urine Neg (NEGATIVE); Benzodiazephine Screen, Urine Neg (NEGATIVE); Cannabinoid Screen, Urine Neg (NEGATIVE); Cocaine Screen, Urine Neg (NEGATIVE); Opiate Scree,Urine Neg (NEGATIVE); Phencyclidine Screen, Urine Neg (NEGATIVE)
[2024-04-12] MEDS ORDERED: DEXTROSE (50%) 50ML SYRG IV PRN (20:30)
[2024-04-12] MEDS ORDERED: DOCUSATE SOD 100 MG CAP PO PRN (20:30)
[2024-04-12] MEDS ORDERED: ONDANSETRON HCL 4 MG/2 ML VIAL IV PRN (20:30)
--- NOTE | 2024-04-12 21:43 | DVHHP2 ---
History of Present Illness Reason for Visit: Hepatic encephalopathy History of Present Illness The patient is a 64-year-old female past medical history of DM, UTIs, chronic kidney failure, and colon cancer presented to [facility] ED for evaluation of altered level of consciousness. As reported by carton stenciler, kiley delacruz'greg suddenly became unresponsive to name, associated generalized weakness, getting worse that prompted this visit. Patient was seen and evaluated in the ED, laboratory data shows WBC 5.2, hemoglobin 11.7, hematocrit 35.1, platelets 72180, sodium 142, potassium 2.1, BUN 25, creatinine 1.94, GFR 28, glucose 196, total bilirubin 2.8, ammonia 88, AST 42, ALT 35. Head CT showed no acute intracranial process. Patient was given lactulose, IV potassium rider, please see medication orders section in the computer. On my assessment, patient remains altered, no diaphoresis, no dizziness, no shortness of breath, no nausea, no vomiting, no fever, no chills. Patient was admitted for further evaluation and medical management. Past Medical History Colon cancer,, CKF, DM, UTI'S Past Surgical History , Colostomy, Urostomy, Family History Reviewed, noncontributory to the management of this case. Past Social History The patient lives at home, denies smoking, alcohol or illicit drugs abuse. Review of Systems Constitutional: Yes: Weakness; No: Fever, Chills, Sweats, Malaise, Other Eyes: No: Pain, Vision change, Conjunctivae inflammation, Eyelid inflammation, Other, Redness ENT: No: Ear pain, Ear discharge, Nose pain, Nose discharge, Nose congestion, Mouth pain, Mouth swelling, Throat pain, Throat swelling, Other Respiratory: No: Cough, Dry, Shortness of breath, SOB with excertion, Wheezing, Hemoptysis, Pleuritic Pain, Sputum, Wheezing, Other Cardiovascular: No: Chest Pain, Palpitations, Orthopnea, Paroxysmal Noc. Dyspnea, Edema, Lt Headedness, Other Gastrointestinal: Other (Left colostomy bag); No: Nausea, Vomiting, Abdominal Pain, Diarrhea, Constipation, Melena, Hematochezia Genitourinary: No Dysuria, No Frequency, No Incontinence, No Hematuria, No Retention; Other (Right urostomy bag) Musculoskeletal: No: other, neck pain, shoulder pain, arm pain, back pain, hand pain, leg pain, foot pain Skin: No: Rash, Lesions, Jaundice, Bruising, Other Neurological: Confusion; No: Weakness, Numbness, Incoordination, Change in speech, Seizures, Other Allergies: Coded Allergies: Codeine (Verified Allergy, Unknown, 08/04/23) Medications Current Medications Medications Dose Ordered Sig/Cecily Route Start Time Stop Time Status Last Admin Dose Admin Potassium Chloride 100 ml @ 50 mls/hr Q2H IV 04/12/24 18:45 04/12/24 22:44 Spironolactone 25 mg DAILY PO 04/13/24 10:00 UNV Lactulose 30 ml Q4HR PO 04/12/24 22:00 UNV Diagnostic Test (Pha) 1 strip ACHS 04/12/24 22:00 UNV Insulin Human Regular HS SC 04/12/24 22:00 UNV Insulin Human Regular AC SC 04/13/24 07:00 UNV Dextrose 50 ml UD PRN IV 04/12/24 20:30 UNV Sodium Chloride 10 ml Q8HR IV 04/12/24 22:00 UNV Ondansetron HCl 4 mg Q4HP PRN IV 04/12/24 20:30 UNV Docusate Sodium 100 mg BIDPRN PRN PO 04/12/24 20:30 UNV Famotidine 20 mg Q12HR IV 04/12/24 22:00 UNV Exam Vital Signs Vital Signs Date Time Temp Pulse Resp B/P (MAP) Pulse Ox O2 Delivery O2 Flow Rate FiO2 04/12/24 19:00 78 18 116/48 (70) 96 04/12/24 17:05 98.7 98.7 04/12/24 17:05 Room Air* 0 21 General Appearance: Alert, Cooperative, No acute distress, Other (Oriented x2) HEENT: Atraumatic, PERRLA, EOMI, Mucous membr. moist/pink Respiratory: Clear to auscultation, Normal air movement Cardiovascular: Regular rate, Normal S1, Normal S2, No murmurs Abdominal: Normal bowel sounds, Soft, No tenderness, No hepatospenomegaly, No masses Extremities: No clubbing, No cyanosis, No edema, Normal pulses, No tenderness/swelling Skin: No significant lesion Neuro: Normal tone, Sensation intact, Cranial nerves 3-12 NL, Reflexes 2+, Other (Generalized weakness) Psych/Mental Status: Mood NL, Other (Altered mental status) Labs/Xrays Labs Test 04/12/24 19:00 04/12/24 16:15 04/12/24 15:35 Range/Units Urine Color Colorless Yellow Urine Clarity Turbid H Clear Urine pH 7.0 5.0-9.0 Urine Specific [place] 1.009 1.001-1.035 Urine Protein 1+ H Negative Urine Ketones Negative Negative Urine Blood 1+ H Negative /uL Urine Nitrite Negative Negative Urine Bilirubin Negative Negative Urine Urobilinogen Normal Negative mg/dL Urine Leukocyte Esterase 3+ Negative /uL Urine RBC 9 0 - 4 /hpf Urine Microscopic WBC 84 H 0-5 /HPF Urine Squamous Epithelial Cells None seen <5 /hpf Urine Bacteria None seen None Seen /hpf Urine Mucus Few None Seen Urine Glucose Normal Normal mg/dL Urine Opiates Screen Neg NEGATIVE Urine Fentanyl Screen Neg NEGATIVE Urine Barbiturates Screen Neg NEGATIVE Urine Phencyclidine Screen Neg NEGATIVE Urine Amphetamines Screen Neg NEGATIVE Urine Benzodiazepines Screen Neg NEGATIVE Urine Cocaine Screen Neg NEGATIVE Urine Cannabinoids Screen Neg NEGATIVE White Blood Count 5.2 4.4-10.8 10^3/uL Red Blood Count 3.72 L 4.0-5.20 10^6/uL Hemoglobin 11.7 L 12.2-16.2 g/dL Hematocrit 35.1 L 36.0-46.0 % Mean Corpuscular Volume 94.6 80.0-100.0 fL Mean Corpuscular Hemoglobin 31.6 28.0-32.0 pg Mean Corpuscular Hemoglobin Concent 33.4 32.0-36.0 g/dL Red Cell Distribution Width 18.1 H 11.8-14.3 % Platelet Count 55 L 140-450 10^3/uL Mean Platelet Volume 7.8 6.9-10.8 fL Neutrophils (%) (Auto) 37.0-80.0 % Lymphocytes (%) (Auto) 10.0-50.0 % Monocytes (%) (Auto) 0.0-12.0 % Basophils (%) (Auto) 0.0-2.0 % Neutrophils # (Auto) 1.6-8.6 10 ^3/uL Lymphocytes # (Auto) 0.4-5.4 10 ^3/uL Monocytes # (Auto) 0-1.3 10 ^3/uL Differential Total Cells Counted 100.0 100 Neutrophils % (Manual) 86 H 37.0-80.0 Band Neutrophils % (Manual) 0 Lymphocytes % (Manual) 8 L 10.0-50.0 Monocytes % (Manual) 5 0-12 Eosinophils % (Manual) 1 0-7 Basophils % (Manual) 0 0.0-2.0 Metamyelocytes % (manual) 0 Myelocytes % (Manual) 0 Promyelocytes % (Manual) 0 Blast Cells % (Manual) 0 Reactive Lymphocytes 0 Platelet Estimate Decreased Sodium Level 142 136-145 mmol/L Potassium Level 2.1 *L 3.5-5.1 mmol/L Chloride Level 116 H 98-107 mmol/L Carbon Dioxide Level 15 L 20-31 mmol/L Anion Gap 11 5-15 Blood Urea Nitrogen 25 H 9-23 mg/dL Creatinine 1.94 H 0.550-1.02 mg/dL Glomerular Filtration Rate Calc 28 >90 mL/min BUN/Creatinine Ratio 12.9 10.0-20.0 Serum Glucose 196 H 74-106 mg/dL Lactic Acid Level 1.7 0.4-2.0 mmol/L Calcium Level 9.2 8.7-10.4 mg/dL Total Bilirubin 2.8 H 0.2-1.0 mg/dL Aspartate Amino Transferase (AST) 42 H 13-40 U/L Alanine Aminotransferase (ALT) 35 7-40 U/L Alkaline Phosphatase 106 46-116 U/L Ammonia 88 H 11-32 umol/L Total Protein 6.4 5.7-8.2 g/dL Albumin 3.8 3.2-4.8 g/dL POC Glucose 183 H 70-106 mg/dl PATIENT: CHELSEA NELSONT: [id number] UNIT: [id number] : 1960 LOC: ER ROOM / BED: / AGE / SEX: 64 / F ADM STATUS: REG ER SERVICE 1534 ORDERING PHYSICIAN: JACKI CALERO PROCEDURE(s): HWOCT - HEAD WITHOUT CONTRAST REASON: ALOC ORDER NUMBER(s): [id number], ACCESSION NUMBER(s): [id number] EXAM: CT HEAD WITHOUT CONTRAST HISTORY: ALOC COMPARISON: CT HEAD WITHOUT CONTRAST on DOS: 10/23/23, CT HEAD WITHOUT CONTRAST on DOS: 10/09/23 TECHNIQUE: Axial images of the head were obtained and reformatted in coronal and sagittal planes. All CT scans at this medical facility are performed using dose modulation techniques as appropriate to a performed exam including the following: Automated exposure control was utilized; adjustment of the MA and/or KV according to patient size; and use of iterative reconstruction technique. CT Dose: CTDI volume is 51 mGy. Dose-length product is 826 mGy*cm FINDINGS: There is no evidence of acute intracranial hemorrhage, mass, mass effect midline shift. There is no hydrocephalus or extra-axial fluid collection. Silva-white matter differentiation is maintained. The visualized paranasal sinuses and mastoid air cells are clear. The calvarium is intact. IMPRESSION: 1. No acute intracranial process. Assessment/Plan Assessment/Plan Hepatic encephalopathy Hypokalemia Thrombocytopenia Ceulr-co-uwvncyl kidney injury Other acute kidney failure Chronic kidney disease, stage 3b Altered mental status Generalized weakness Plan 1. Admit to telemetry unit 2. Breathing treatment 3. Pain control management 4. Management of fluids and electrolytes 5. Consultation for hospitalist/nephrology 6. Diagnostic tests head CT 7. DVT prophylaxis-on SCDs 8. Repeat labs CBC, CMP in a.m. 9. Continue with current medical management 10. Treatment plan discussed with patient and RN. Patient will need reinstatement of information given mental status. Plan discussed with: Patient, Other (RN) My Orders Orders - VIDYA BRANDON DNP Procedure Category Date Status Time Spironolactone PHA 04/13/24 Logged (Aldactone) 10:00 Lactulose Oral PHA 04/12/24 Logged 22:00 * [facility] [employer]ment Mender CONS 04/12/24 Transmitted 20:23 *Dr. [facility] CONS 04/12/24 Transmitted -[place] 20:23 Consistent DIET 04/13/24 [facility] Breakfast Glucose Blood PHA 04/12/24 Logged (Accu-Chek Comfort 22:00 Insulin R (Human) PHA 04/12/24 Logged (Insulin R) 22:00 Insulin R (Human) PHA 04/13/24 Logged (Insulin R) 07:00 Dextrose 50% Syringe PHA 04/12/24 Logged 20:30 Allergies ISABELA 04/12/24 In Process 20:23 Code Status CODE 04/12/24 Transmitted 20:23 Sodium Chloride Lock PHA 04/12/24 Logged (Saline Lock Ns) 22:00 Oxygen Per Hour RT 04/12/24 Transmitted 20:23 Ondansetron Hcl PHA 04/12/24 Logged (Zofran) 20:30 Docusate Sodium PHA 04/12/24 Logged Capsule (Colace 20:30 Fall Risk Precautions ISABELA 04/12/[address] 20:23 Complete Blood Count LAB 04/13/24 Verified 04:00 Comprehensive LAB 04/13/24 Verified Metabolic Panel 04:00 Condition: Serious ISABELA 04/12/24 In Process 20:23 Sequential ISABELA 04/12/24 In Process Compression Device Famotidine Injection PHA 04/12/24 Logged (Pepcid Injection) 22:00 Problem List: (1) Hepatic encephalopathy (2) Fhnzx-go-lbkkyyn kidney injury (3) Hypokalemia (4) Generalized weakness (5) Chronic kidney disease, stage 3b (6) Altered mental status (7) Thrombocytopenia (8) Other acute kidney failure Date of Service: Apr 12, 2024 Billing Provider: VIDYA BRANDON DNP Common Visit Codes: [id number]-[id number] INP/OBS CARE (HIGH) VIDYA BRANDON DNP Apr 12, 2024 21:43
[2024-04-12] MEDS ORDERED: NITROGLYCERIN 0.4 MG SL TAB SL PRN (21:45)
[2024-04-12] MEDS ORDERED: MORPHINE SULFATE INJ 2 MG/ml SYRG IV PRN (21:45)
[2024-04-12] MEDS: SODIUM CHLOR 0.9% PF (SALINE LOCK) 10ML VIAL/SYR IV SCH (22:00)
[2024-04-12] MEDS: POTASSIUM CHL 20MEQ/100ML 100 ML IV SCH (23:29)
[2024-04-13] MEDS: ACCU-CHEK COMFORT CURVE STRIP VI SCH (00:34)
[2024-04-13] MEDS: InsuLIN REG 1unit/0.01ml Soln (100units/ml) SC SCH ×2 (01:49→06:32)
[2024-04-13] MEDS: LACTULOSE 20Gm/30ML SOLN PO SCH (02:00)
[2024-04-13] MEDS: POTASSIUM CHL 20MEQ/100ML 100 ML IV SCH ×2 (03:56→09:23)
[2024-04-13 05:35] LABS: Basophils # (auto) 0 10 ^3/uL (0-0.2); Eosinophils # (auto) 0 10 ^3/uL (0-0.8); Hemoglobin 10.7 g/dL (12.2-16.2); Lymphocytes # (auto) 0.4 10 ^3/uL (0.4-5.4); White Blood Cell 3.2 10^3/uL (4.4-10.8)
[2024-04-13 05:38] LABS: Basophils % (auto) 0.3 % (0.0-2.0); Eosinophils % (auto) 1.2 % (0.0-7.0); Hematocrit 31.6 % (36.0-46.0); Lymphocytes % (auto) 11.5 % (10.0-50.0); Mean Corpuscular Hemoglobin 31.8 pg (28.0-32.0); Mean Corpuscular Hgb Conc. 33.7 g/dL (32.0-36.0); Mean Corpuscular Volume 94.2 fL (80.0-100.0); Monocytes # (auto) 0.3 10 ^3/uL (0-1.3); Monocytes % (auto) 10.9 % (0.0-12.0); Neutrophils # (auto) 2.4 10 ^3/uL (1.6-8.6); Neutrophils % (auto) 76.1 % (37.0-80.0); Nucleated Red Blood Cells % 0.2 %; Platelet Count (auto) 47 10^3/uL (140-450); Red Blood Cells 3.36 10^6/uL (4.0-5.20); Red Cell Distribution Width 18.2 % (11.8-14.3)
[2024-04-13 06:00] LABS: Alanine Aminotransferase 30 U/L (7-40); Albumin 3.5 g/dL (3.2-4.8); Alkaline Phosphatase 98 U/L (46-116); Anion Gap 12 (5-15); Aspartate Aminotransferase 38 U/L (13-40); BUN/Creatinine Ratio 12.6 (10.0-20.0); Blood Urea Nitrogen 22 mg/dL (9-23); Calcium 8.9 mg/dL (8.7-10.4); Sodium 144 mmol/L (136-145)
[2024-04-13 06:04] LABS: Carbon Dioxide 13 mmol/L (20-31); Chloride 119 mmol/L (98-107); Glucose 121 mg/dL (74-106)
[2024-04-13 06:09] LABS: Potassium 2.3 mmol/L (3.5-5.1)
[2024-04-13] MEDS: FAMOTIDINE (10MG/ML) 2ML VL IV SCH (06:09)
[2024-04-13 08:00] VITALS: PULSE 64; RESP 18; O2SAT 98
[2024-04-13] MEDS: SODIUM BICARB 50mEq/50ml Vial 100 ML in SOD CHL 0.45% 1,000 ML IV SCH (08:45)
--- NOTE | 2024-04-13 08:58 | DVHINCON2 ---
Date of service: Apr 13, 2024 Referring Physician Jose L Parkinson, nurse practitioner Reason for Consultation Acute kidney injury History of Present Illness Patient is a 64-year-old female with past medical history significant for diabetes, chronic kidney disease and colon cancer status post surgery colostomy is admitted for altered level of consciousness. On admission patient found to have elevated BUN creatinine nephrology is consulted for acute kidney injury Past Medical History Colon cancer, diabetes mellitus, Chronic Kidney Disease, recurrent UTI Past Surgical History Abdominal surgery Ileostomy Urostomy Allergies: Coded Allergies: Codeine (Verified Allergy, Unknown, 08/04/23) Home Meds Active Scripts Lactulose (Lactulose) 10 Gm/15 Ml Rita, 10 GM PO TID for 30 Days, #120 ML 3 Refills Prov:GAYATRI DODGE DOLLY DRIVER 12/18/23 Rifaximin (Xifaxan) 550 Mg Tab, 550 MG PO BID for 30 Days, #60 TAB 2 Refills Prov:GAYATRI DODGE DOLLY DRIVER 12/18/23 Pantoprazole Sodium Sesquihydr (Pantoprazole Sodium) 40 Mg Tab, 40 MG PO DAILY@0600 for 30 Days, #30 TAB 2 Refills Prov:KODAK TORRE MD 11/01/23 Spironolactone (Aldactone) 25 Mg Tab, 25 MG PO DAILY for 30 Days, #30 TAB 3 Refills Prov:KODAK TORRE MD 11/01/23 Potassium Chloride (Potassium Chloride ER) 20 Meq Tab, 1 TAB PO BID for 90 Days, #180 TAB Prov:OJ LYNCH RESIDENT 10/12/23 Lactulose (Lactulose) 10 Gm/15 Ml Rita, 30 ML PO TID for 90 Days, #5 ML 5 Refills Prov:OJ LYNCH RESIDENT 10/12/23 Reported Medications Ergocalciferol (Vitamin D) 50,000 Unit Cap, 1 CAP PO QWEEKLY 10/10/23 Omeprazole (Omeprazole Dr) 20 Mg Cap, 1 CAP PO DAILY 10/10/23 Ferrous Sulfate (Ferosul) 325 Mg Tab, 1 TAB PO DAILY 10/10/23 Insulin Glargine (Basaglar Kwikpen) 100 Unit/Ml Inj, SC 10/10/23 Sertraline Hcl (Sertraline Hcl) 100 Mg Tab, 1 TAB PO DAILY 10/10/23 Hydrocortone (Hydrocortisone 2.5%) 1 Applic Ap, TOP 10/10/23 Current Medications Current Medications Medications (Trade) Dose Ordered Sig/Cecily Route PRN Reason Start Time Stop Time Status Last Admin Potassium Chloride 100 ml @ 50 mls/hr Q2H IV 04/12/24 18:45 04/12/24 22:44 DC 04/13/24 03:55 Spironolactone (Aldactone) 25 mg DAILY PO 04/13/24 10:00 04/13/24 09:24 Lactulose 30 ml Q4HR PO 04/12/24 22:00 04/13/24 09:24 Diagnostic Test (Pha) (Accu-Chek Comfort Curve T) 1 strip ACHS 04/12/24 22:00 04/13/24 06:31 Insulin Human Regular (InsuLIN R) HS SC 04/12/24 22:00 04/13/24 01:49 Insulin Human Regular (InsuLIN R) AC SC 04/13/24 07:00 Dextrose 50 ml UD PRN IV Blood Sugar LESS THAN 60 04/12/24 20:30 Sodium Chloride (Saline Lock Ns) 10 ml Q8HR IV 04/12/24 22:00 04/13/24 06:09 Ondansetron HCl (Zofran) 4 mg Q4HP PRN IV NAUSEA / VOMITING 04/12/24 20:30 Docusate Sodium (Colace Capsule) 100 mg BIDPRN PRN PO FOR CONSTIPATION 04/12/24 20:30 Famotidine (Pepcid Injection) 20 mg Q24H IV 04/12/24 22:00 04/13/24 06:35 DC 04/13/24 06:09 Nitroglycerin (Ntrostat Sublingual) 0.4 mg Q5MINP PRN SL FOR CHEST PAIN 04/12/24 21:45 Morphine Sulfate 2 mg Q30M PRN IV FOR CHEST PAIN 04/12/24 21:45 Potassium Chloride 100 ml @ 50 mls/hr Q2H IV 04/13/24 04:00 04/13/24 05:59 DC Famotidine (Pepcid Injection) 20 mg Q24H IV 04/14/24 06:00 Sodium Bicarbonate 100 ml/Sodium Chloride 1,100 ml @ 100 mls/hr Q11H IV 04/13/24 08:45 04/13/24 08:45 Potassium Chloride 100 ml @ 50 mls/hr Q2H IV 04/13/24 08:45 04/13/24 16:44 04/13/24 09:23 Magnesium Sulfate/ Dextrose 100 ml @ 100 mls/hr Q1HR IV 04/13/24 09:00 04/13/24 11:59 04/13/24 09:24 Ceftriaxone Sodium 50 ml @ 100 mls/hr DAILY@09 IV 04/14/24 09:00 Rifaximin (Xifaxan) 550 mg BID PO 04/13/24 22:00 Family History: Diabetes mellitus G8 MOTHER G8 FATHER Review of Systems Can not be obtained H&P Exam Vital Signs/I&O Vital Sign Date Time Temp Pulse Resp B/P (MAP) Pulse Ox O2 Delivery O2 Flow Rate FiO2 04/13/24 08:00 66 04/13/24 08:00 97.6 17 105/41 (62) 99 97.6 04/13/24 08:00 Room Air* 0 21 Intake and Output 04/12/24 04/13/24 19:00 07:00 Output Total 450 ml Balance -450 ml Output Urine Total 450 ml Physical Exam The patient is altered and confused Lungs clear to auscultation Cardiac exam regular rate and rhythm GI ileostomy bag, urostomy bag Extremities no clubbing cyanosis or edema Neuro patient is encephalopathic Labs/Diagnostic Data Labs/Diagnostic Data Laboratory Tests Test 04/13/24 09:14 04/13/24 09:00 04/13/24 06:40 04/13/24 04:36 Range/Units Urine Color Yellow Yellow Urine Clarity Turbid H Clear Urine pH 7.0 5.0-9.0 Urine Specific [place] 1.009 1.001-1.035 Urine Protein 1+ H Negative Urine Ketones Negative Negative Urine Blood Trace H Negative /uL Urine Nitrite 1+ H Negative Urine Bilirubin Negative Negative Urine Urobilinogen Normal Negative mg/dL Urine Leukocyte Esterase 3+ Negative /uL Urine RBC 9 0 - 4 /hpf Urine WBC Clumps Present None Seen /hpf Urine Microscopic WBC 153 H 0-5 /HPF Urine Squamous Epithelial Cells Few <5 /hpf Urine Bacteria Few H None Seen /hpf Urine Creatinine 57.58 30.0-125.0 mg/dL Urine Protein/Creatinine Ratio 1.59 Urine Sodium 55 40-220 mmol/L Urine Glucose Normal Normal mg/dL Urine Total Protein 91.7 H 1-14 mg/dL Potassium Level 2.4 *L 2.3 *L 3.5-5.1 mmol/L Phosphorus Level 2.5 2.4-5.1 mg/dL Magnesium Level 2.7 H 1.6-2.6 mg/dL White Blood Count 3.2 #L 4.4-10.8 10^3/uL Red Blood Count 3.36 L 4.0-5.20 10^6/uL Hemoglobin 10.7 L 12.2-16.2 g/dL Hematocrit 31.6 L 36.0-46.0 % Mean Corpuscular Volume 94.2 80.0-100.0 fL Mean Corpuscular Hemoglobin 31.8 28.0-32.0 pg Mean Corpuscular Hemoglobin Concent 33.7 32.0-36.0 g/dL Red Cell Distribution Width 18.2 H 11.8-14.3 % Platelet Count 47 L 140-450 10^3/uL Mean Platelet Volume 7.7 6.9-10.8 fL Neutrophils (%) (Auto) 76.1 37.0-80.0 % Lymphocytes (%) (Auto) 11.5 10.0-50.0 % Monocytes (%) (Auto) 10.9 0.0-12.0 % Eosinophils (%) (Auto) 1.2 0.0-7.0 % Basophils (%) (Auto) 0.3 0.0-2.0 % Neutrophils # (Auto) 2.4 1.6-8.6 10 ^3/uL Lymphocytes # (Auto) 0.4 0.4-5.4 10 ^3/uL Monocytes # (Auto) 0.3 0-1.3 10 ^3/uL Eosinophils # (Auto) 0 0-0.8 10 ^3/uL Basophils # (Auto) 0 0-0.2 10 ^3/uL Nucleated Red Blood Cells 0.2 % Sodium Level 144 136-145 mmol/L Chloride Level 119 H 98-107 mmol/L Carbon Dioxide Level 13 L 20-31 mmol/L Anion Gap 12 5-15 Blood Urea Nitrogen 22 9-23 mg/dL Creatinine 1.74 H 0.550-1.02 mg/dL Glomerular Filtration Rate Calc 32 >90 mL/min BUN/Creatinine Ratio 12.6 10.0-20.0 Serum Glucose 121 H 74-106 mg/dL Calcium Level 8.9 8.7-10.4 mg/dL Total Bilirubin 2.0 H 0.2-1.0 mg/dL Aspartate Amino Transferase (AST) 38 13-40 U/L Alanine Aminotransferase (ALT) 30 7-40 U/L Alkaline Phosphatase 98 46-116 U/L Total Protein 6.0 5.7-8.2 g/dL Albumin 3.5 3.2-4.8 g/dL Test 04/12/24 19:00 04/12/24 16:15 04/12/24 15:35 Range/Units Urine Color Colorless Yellow Urine Clarity Turbid H Clear Urine pH 7.0 5.0-9.0 Urine Specific [place] 1.009 1.001-1.035 Urine Protein 1+ H Negative Urine Ketones Negative Negative Urine Blood 1+ H Negative /uL Urine Nitrite Negative Negative Urine Bilirubin Negative Negative Urine Urobilinogen Normal Negative mg/dL Urine Leukocyte Esterase 3+ Negative /uL Urine RBC 9 0 - 4 /hpf Urine Microscopic WBC 84 H 0-5 /HPF Urine Squamous Epithelial Cells None seen <5 /hpf Urine Bacteria None seen None Seen /hpf Urine Mucus Few None Seen Urine Glucose Normal Normal mg/dL Urine Opiates Screen Neg NEGATIVE Urine Fentanyl Screen Neg NEGATIVE Urine Barbiturates Screen Neg NEGATIVE Urine Phencyclidine Screen Neg NEGATIVE Urine Amphetamines Screen Neg NEGATIVE Urine Benzodiazepines Screen Neg NEGATIVE Urine Cocaine Screen Neg NEGATIVE Urine Cannabinoids Screen Neg NEGATIVE White Blood Count 5.2 4.4-10.8 10^3/uL Red Blood Count 3.72 L 4.0-5.20 10^6/uL Hemoglobin 11.7 L 12.2-16.2 g/dL Hematocrit 35.1 L 36.0-46.0 % Mean Corpuscular Volume 94.6 80.0-100.0 fL Mean Corpuscular Hemoglobin 31.6 28.0-32.0 pg Mean Corpuscular Hemoglobin Concent 33.4 32.0-36.0 g/dL Red Cell Distribution Width 18.1 H 11.8-14.3 % Platelet Count 55 L 140-450 10^3/uL Mean Platelet Volume 7.8 6.9-10.8 fL Neutrophils (%) (Auto) 37.0-80.0 % Lymphocytes (%) (Auto) 10.0-50.0 % Monocytes (%) (Auto) 0.0-12.0 % Basophils (%) (Auto) 0.0-2.0 % Neutrophils # (Auto) 1.6-8.6 10 ^3/uL Lymphocytes # (Auto) 0.4-5.4 10 ^3/uL Monocytes # (Auto) 0-1.3 10 ^3/uL Differential Total Cells Counted 100.0 100 Neutrophils % (Manual) 86 H 37.0-80.0 Band Neutrophils % (Manual) 0 Lymphocytes % (Manual) 8 L 10.0-50.0 Monocytes % (Manual) 5 0-12 Eosinophils % (Manual) 1 0-7 Basophils % (Manual) 0 0.0-2.0 Metamyelocytes % (manual) 0 Myelocytes % (Manual) 0 Promyelocytes % (Manual) 0 Blast Cells % (Manual) 0 Reactive Lymphocytes 0 Platelet Estimate Decreased Sodium Level 142 136-145 mmol/L Potassium Level 2.1 *L 3.5-5.1 mmol/L Chloride Level 116 H 98-107 mmol/L Carbon Dioxide Level 15 L 20-31 mmol/L Anion Gap 11 5-15 Blood Urea Nitrogen 25 H 9-23 mg/dL Creatinine 1.94 H 0.550-1.02 mg/dL Glomerular Filtration Rate Calc 28 >90 mL/min BUN/Creatinine Ratio 12.9 10.0-20.0 Serum Glucose 196 H 74-106 mg/dL Lactic Acid Level 1.7 0.4-2.0 mmol/L Calcium Level 9.2 8.7-10.4 mg/dL Total Bilirubin 2.8 H 0.2-1.0 mg/dL Aspartate Amino Transferase (AST) 42 H 13-40 U/L Alanine Aminotransferase (ALT) 35 7-40 U/L Alkaline Phosphatase 106 46-116 U/L Ammonia 88 H 11-32 umol/L Total Protein 6.4 5.7-8.2 g/dL Albumin 3.8 3.2-4.8 g/dL POC Glucose 183 H 70-106 mg/dl Assessment Acute kidney injury superimposed Chronic Kidney Disease secondary hemodynamic mediated Hypokalemic metabolic acidosis Dehydration Hepatic encephalopathy Thrombocytopenia Diabetes mellitus Anemia of chronic kidney disease Recommendations Closely monitor fluid and electrolytes Avoid nephrotoxic medications Cooley catheter Strict I&Os IV fluids with sodium bicarb Aggressive KCL replacement Magnesium sulfate IV piggyback Insulin sliding scale Check urine electrolytes and urine protein excretion Check kidney ultrasound We will continue to follow Patient seen and examined by myself in the ER. I discussed my plan of care with the primary nurse at the bedside I would like to thank Jose L for the consult, will follow up Plan discussed with: Other (Nurse) RAYMOND OROZCO MD Apr 13, 2024 08:58
[2024-04-13] MEDS: SPIRONOLACTONE 25 MG TAB PO SCH (09:24)
[2024-04-13] MEDS: MAGNESIUM SULFATE 1GM/100ML 100 ML IV SCH (09:24)
[2024-04-13 09:31] LABS: Phosphorus 2.5 mg/dL (2.4-5.1)
[2024-04-13 09:36] LABS: Urine Bacteria FEW /hpf (None Seen); Urine Blood TRACE /uL (Negative); Urine Clarity Turbid (Clear); Urine Color Yellow (Yellow); Urine Protein, UAD 1+ (Negative); Urine Specific Gravity 1.009 (1.001-1.035); Urine Squamous Epithelial Cell FEW /hpf (<5); Urine Urobilinogen Normal (Negative); Urine WBC 153 /HPF (0-5); Urine WBC Clumps PRESENT /hpf (None Seen)
[2024-04-13 09:40] LABS: Magnesium 2.7 mg/dL (1.6-2.6)
[2024-04-13 09:43] LABS: Protein, Urine 91.7 mg/dL (1-14)
[2024-04-13 09:46] LABS: Creatinine, Urine 57.58 mg/dL (30.0-125.0); Urine Protein/Creatinine Ratio 1.59
[2024-04-13 09:47] LABS: Creatinine, Urine 57.94 mg/dL (30.0-125.0)
--- NOTE | 2024-04-13 11:01 | DVH ---
CHEST RADIOGRAPH Indication: aloc Technique: Single frontal view of the chest was obtained COMPARISON: XY CHEST PORTABLE on DOS: 12/08/23, XY CHEST PORTABLE on DOS: 12/05/23, XY CHEST PORTABLE o n DOS: 10/25/23, XY CHEST XRAY 1 VIEW on DOS: 10/24/23, XY CHEST XRAY 1 VIEW on DOS: 10/24/23 FINDINGS: Lines and Tubes: None Lungs: Clear Pleura: No effusion. No pneumothorax. Cardiomediastinal contours: Borderline cardiomegaly. Vascular calcification hepatic arch. Bones: Unremarkable IMPRESSION: 1. No acute disease.
[2024-04-13] MEDS: rifAXIMin 550 MG TAB PO ONE (11:15)
[2024-04-13] MEDS: cefTRIAXone 1GM/50ML D5W 50 ML IV ONE (11:15)
--- NOTE | 2024-04-13 12:19 | DVH ---
EXAM: US Retroperitoneal Limited, Renal CLINICAL INDICATION: gopi TECHNIQUE: Real-time limited ultrasound of the retroperitoneum with image documentation. COMPARISON: US KIDNEY on DOS: 12/06/23, US KIDNEY on DOS: 10/23/23 FINDINGS: RIGHT KIDNEY: Mild right hydronephrosis. Right kidney measures up to 9.0 cm. Increased right renal echogenicity. No stones. LEFT KIDNEY: Left kidney measures up to 9.6 cm. No stones. No hydronephrosis. OTHER FINDINGS: . IMPRESSION: Mild right hydronephrosis without obstructing calculus. Increased echogenicity of the right kidney Ma y suggest renal parenchymal disease.
--- NOTE | 2024-04-13 12:46 | DVHINCON2 ---
GI Consult Consult Note Date of Consultation: April 13, 2024 Reason for consultation: Hepatic encephalopathy Referring Physician: Iggy H&P: The patient is a 64-year-old female with a history of diabetes, chronic kidney disease, history of colon cancer status post ileostomy and urostomy, admitted with decreased level of consciousness suspected to have hepatic encephalopathy, elevated ammonia levels and thrombocytopenia. GI consultation was obtained for evaluation. History was obtained from the chart. Patient has been started on antibiotics as well as lactulose for the hepatic encephalopathy. Past Medical History: As above Past Surgical History: 1. Ileostomy 2. Urostomy 3. History CC Social History: NO smoking, drinking ETOH and use of illegal drugs. Family History: Noncontributory Current Medications Medications (Trade) Dose Ordered Sig/Cecily Route PRN Reason Start Time Stop Time Status Last Admin Ceftriaxone Sodium 50 ml @ 100 mls/hr DAILY@09 IV 04/14/24 09:00 Dextrose 50 ml UD PRN IV Blood Sugar LESS THAN 60 04/12/24 20:30 Diagnostic Test (Pha) (Accu-Chek Comfort Curve T) 1 strip ACHS 04/12/24 22:00 04/13/24 11:30 Docusate Sodium (Colace Capsule) 100 mg BIDPRN PRN PO FOR CONSTIPATION 04/12/24 20:30 Famotidine (Pepcid Injection) 20 mg Q24H IV 04/14/24 06:00 Insulin Human Regular (InsuLIN R) AC SC 04/13/24 07:00 04/13/24 11:30 Insulin Human Regular (InsuLIN R) HS SC 04/12/24 22:00 04/13/24 01:49 Lactulose 30 ml Q4HR PO 04/12/24 22:00 04/13/24 09:24 Morphine Sulfate 2 mg Q30M PRN IV FOR CHEST PAIN 04/12/24 21:45 Nitroglycerin (Ntrostat Sublingual) 0.4 mg Q5MINP PRN SL FOR CHEST PAIN 04/12/24 21:45 Ondansetron HCl (Zofran) 4 mg Q4HP PRN IV NAUSEA / VOMITING 04/12/24 20:30 Potassium Chloride 100 ml @ 50 mls/hr Q2H IV 04/13/24 08:45 04/13/24 16:44 04/13/24 11:16 Rifaximin (Xifaxan) 550 mg BID PO 04/13/24 22:00 Sodium Bicarbonate 100 ml/Sodium Chloride 1,100 ml @ 100 mls/hr Q11H IV 04/13/24 08:45 04/13/24 08:45 Sodium Chloride (Saline Lock Ns) 10 ml Q8HR IV 04/12/24 22:00 04/13/24 06:09 Spironolactone (Aldactone) 25 mg DAILY PO 04/13/24 10:00 04/13/24 09:24 Review of Systems: 12 point review of systems as per HPI otherwise unable to be obtained Vital Signs Date Time Temp Pulse Resp B/P (MAP) Pulse Ox O2 Delivery O2 Flow Rate FiO2 04/13/24 12:00 65 17 105/46 (65) 99 04/13/24 08:00 97.6 97.6 04/13/24 08:00 Room Air* 0 21 Physical exam: General: Asleep but arousable lying in bed no distress HEENT: PERRL, no scleral icterus, normal hearing, gums without lesions or bleeding, oropharynx clear without erythema or exudate. Hirsute Neck: Supple without enlargement of the thyroid, or lymphadenopathy. Chest: Clear to auscultation anteriorly Heart: RRR, Abdomen: non-distended, ileostomy and urostomy in place Extremities: no edema, no cyanosis Neurological: Decreased level of consciousness, response to pain Skin: No rashes, No jaundice bruising upper extremities Labs: Labs Test 04/13/24 12:17 04/13/24 09:14 04/13/24 09:00 04/13/24 06:40 Range/Units POC Glucose 227 H 70-106 mg/dl Urine Color Yellow Yellow Urine Clarity Turbid H Clear Urine pH 7.0 5.0-9.0 Urine Specific [place] 1.009 1.001-1.035 Urine Protein 1+ H Negative Urine Ketones Negative Negative Urine Blood Trace H Negative /uL Urine Nitrite 1+ H Negative Urine Bilirubin Negative Negative Urine Urobilinogen Normal Negative mg/dL Urine Leukocyte Esterase 3+ Negative /uL Urine RBC 9 0 - 4 /hpf Urine WBC Clumps Present None Seen /hpf Urine Microscopic WBC 153 H 0-5 /HPF Urine Squamous Epithelial Cells Few <5 /hpf Urine Bacteria Few H None Seen /hpf Urine Creatinine 57.58 30.0-125.0 mg/dL Urine Protein/Creatinine Ratio 1.59 Urine Sodium 55 40-220 mmol/L Urine Glucose Normal Normal mg/dL Urine Total Protein 91.7 H 1-14 mg/dL Stool Occult Blood Negative Negative Stool Occult Blood Sample #3 Negative Stool for White Cells None seen Potassium Level 2.4 *L 3.5-5.1 mmol/L Phosphorus Level 2.5 2.4-5.1 mg/dL Magnesium Level 2.7 H 1.6-2.6 mg/dL Test 04/13/24 04:36 04/12/24 19:00 04/12/24 16:15 Range/Units White Blood Count 3.2 #L 4.4-10.8 10^3/uL Red Blood Count 3.36 L 4.0-5.20 10^6/uL Hemoglobin 10.7 L 12.2-16.2 g/dL Hematocrit 31.6 L 36.0-46.0 % Mean Corpuscular Volume 94.2 80.0-100.0 fL Mean Corpuscular Hemoglobin 31.8 28.0-32.0 pg Mean Corpuscular Hemoglobin Concent 33.7 32.0-36.0 g/dL Red Cell Distribution Width 18.2 H 11.8-14.3 % Platelet Count 47 L 140-450 10^3/uL Mean Platelet Volume 7.7 6.9-10.8 fL Neutrophils (%) (Auto) 76.1 37.0-80.0 % Lymphocytes (%) (Auto) 11.5 10.0-50.0 % Monocytes (%) (Auto) 10.9 0.0-12.0 % Eosinophils (%) (Auto) 1.2 0.0-7.0 % Basophils (%) (Auto) 0.3 0.0-2.0 % Neutrophils # (Auto) 2.4 1.6-8.6 10 ^3/uL Lymphocytes # (Auto) 0.4 0.4-5.4 10 ^3/uL Monocytes # (Auto) 0.3 0-1.3 10 ^3/uL Eosinophils # (Auto) 0 0-0.8 10 ^3/uL Basophils # (Auto) 0 0-0.2 10 ^3/uL Nucleated Red Blood Cells 0.2 % Sodium Level 144 136-145 mmol/L Chloride Level 119 H 98-107 mmol/L Carbon Dioxide Level 13 L 20-31 mmol/L Anion Gap 12 5-15 Blood Urea Nitrogen 22 9-23 mg/dL Creatinine 1.74 H 0.550-1.02 mg/dL Glomerular Filtration Rate Calc 32 >90 mL/min BUN/Creatinine Ratio 12.6 10.0-20.0 Serum Glucose 121 H 74-106 mg/dL Calcium Level 8.9 8.7-10.4 mg/dL Total Bilirubin 2.0 H 0.2-1.0 mg/dL Aspartate Amino Transferase (AST) 38 13-40 U/L Alanine Aminotransferase (ALT) 30 7-40 U/L Alkaline Phosphatase 98 46-116 U/L Total Protein 6.0 5.7-8.2 g/dL Albumin 3.5 3.2-4.8 g/dL Urine Mucus Few None Seen Urine Opiates Screen Neg NEGATIVE Urine Fentanyl Screen Neg NEGATIVE Urine Barbiturates Screen Neg NEGATIVE Urine Phencyclidine Screen Neg NEGATIVE Urine Amphetamines Screen Neg NEGATIVE Urine Benzodiazepines Screen Neg NEGATIVE Urine Cocaine Screen Neg NEGATIVE Urine Cannabinoids Screen Neg NEGATIVE Differential Total Cells Counted 100.0 100 Neutrophils % (Manual) 86 H 37.0-80.0 Band Neutrophils % (Manual) 0 Lymphocytes % (Manual) 8 L 10.0-50.0 Monocytes % (Manual) 5 0-12 Eosinophils % (Manual) 1 0-7 Basophils % (Manual) 0 0.0-2.0 Metamyelocytes % (manual) 0 Myelocytes % (Manual) 0 Promyelocytes % (Manual) 0 Blast Cells % (Manual) 0 Reactive Lymphocytes 0 Platelet Estimate Decreased Lactic Acid Level 1.7 0.4-2.0 mmol/L Ammonia 88 H 11-32 umol/L Imaging: No acute GI finding Assessment: 1. Chronic kidney disease 2. History of colon cancer 3. encephalopathy, not sure if the patient's encephalopathy is due to metabolic causes or liver disease. Thrombocytopenia and elevated ammonia levels favors liver disease however liver enzymes are normal. 4. History of ileostomy 5. Elevated ammonia levels 6. Anemia likely due to chronic disease Plan: 1. Continue with current medications 2. Continue to monitor ammonia levels 3. No GI intervention at this time 4. Follow labs 5. Keep NPO and IV hydration Date of Service: Apr 13, 2024 Billing Provider: LYNN ALMEIDA MD Common Visit Codes: [id number] INP/OBS CARE (HIGH) Consultation Codes: [id number] CONSULT <60MIN LYNN ALMEIDA MD Apr 13, 2024 12:46
--- NOTE | 2024-04-13 14:23 | DVHPN2 ---
Subjective Sleepy but answers and follows simple command Reviewed: Care Plan, H&P, Labs, Medications, Previous Orders, Radiology, Other (Consultants) Changes from previous H/P or p: No Changes Objective Vitals Vital Signs Date Time Temp Pulse Resp B/P (MAP) Pulse Ox O2 Delivery O2 Flow Rate FiO2 04/13/24 14:00 61 17 109/37 (61) 99 04/13/24 08:00 97.6 97.6 04/13/24 08:00 Room Air* 0 21 Intake/Output Intake and Output 04/13/24 07:00 Output Total 450 ml Balance -450 ml Output Urine Total 450 ml General Appearance: Cooperative, No acute distress, Other (Follows simple command) HEENT: Atraumatic Lungs: Clear to auscultation Cardiovascular: Regular rate Abdomen: Normal bowel sounds, Soft, No tenderness, Other (Urostomy and colostomy) Medications Current Medications Medications Dose Ordered Sig/Cecily Route Start Time Stop Time Status Last Admin Dose Admin Spironolactone 25 mg DAILY PO 04/13/24 10:00 04/13/24 09:24 25 MG Lactulose 30 ml Q4HR PO 04/12/24 22:00 04/13/24 13:43 30 ML Diagnostic Test (Pha) 1 strip ACHS 04/12/24 22:00 04/13/24 11:30 1 STRIP Insulin Human Regular HS SC 04/12/24 22:00 04/13/24 01:49 2 UNITS Insulin Human Regular AC SC 04/13/24 07:00 04/13/24 11:30 6 UNITS Dextrose 50 ml UD PRN IV 04/12/24 20:30 Sodium Chloride 10 ml Q8HR IV 04/12/24 22:00 04/13/24 13:35 10 ML Ondansetron HCl 4 mg Q4HP PRN IV 04/12/24 20:30 Docusate Sodium 100 mg BIDPRN PRN PO 04/12/24 20:30 Nitroglycerin 0.4 mg Q5MINP PRN SL 04/12/24 21:45 Morphine Sulfate 2 mg Q30M PRN IV 04/12/24 21:45 Famotidine 20 mg Q24H IV 04/14/24 06:00 Sodium Bicarbonate 100 ml/Sodium Chloride 1,100 ml @ 100 mls/hr Q11H IV 04/13/24 08:45 04/13/24 08:45 100 MLS/HR Potassium Chloride 100 ml @ 50 mls/hr Q2H IV 04/13/24 08:45 04/13/24 16:44 04/13/24 13:35 50 MLS/HR Ceftriaxone Sodium 50 ml @ 100 mls/hr DAILY@09 IV 04/14/24 09:00 Rifaximin 550 mg BID PO 04/13/24 22:00 Laboratory Results Laboratory Tests 04/13/24 04:36 04/13/24 06:40 Chemistry Test 04/12/24 16:15 04/13/24 04:36 04/13/24 06:40 Albumin 3.8 g/dL (3.2-4.8) 3.5 g/dL (3.2-4.8) Calcium Level 9.2 mg/dL (8.7-10.4) 8.9 mg/dL (8.7-10.4) Total Protein 6.4 g/dL (5.7-8.2) 6.0 g/dL (5.7-8.2) Magnesium Level 2.7 mg/dL (1.6-2.6) H Phosphorus Level 2.5 mg/dL (2.4-5.1) LFT Test 04/12/24 16:15 04/13/24 04:36 Alanine Aminotransferase (ALT) 35 U/L (7-40) 30 U/L (7-40) Alkaline Phosphatase 106 U/L (46-116) 98 U/L (46-116) Aspartate Amino Transferase (AST) 42 U/L (13-40) H 38 U/L (13-40) Total Bilirubin 2.8 mg/dL (0.2-1.0) H 2.0 mg/dL (0.2-1.0) H Urinalysis Test 04/12/24 19:00 04/13/24 09:14 Urine Mucus Few (None Seen) Urine Color Yellow (Yellow) Urine Clarity Turbid (Clear) H Urine pH 7.0 (5.0-9.0) Urine Specific [place] 1.009 (1.001-1.035) Urine Protein 1+ (Negative) H Urine Ketones Negative (Negative) Urine Blood Trace /uL (Negative) H Urine Nitrite 1+ (Negative) H Urine Bilirubin Negative (Negative) Urine Urobilinogen Normal mg/dL (Negative) Urine Leukocyte Esterase 3+ /uL (Negative) Urine RBC 9 /hpf (0 - 4) Urine WBC Clumps Present /hpf (None Seen) Urine Microscopic WBC 153 /HPF (0-5) H Urine Squamous Epithelial Cells Few /hpf (<5) Urine Bacteria Few /hpf (None Seen) H Urine Creatinine 57.58 mg/dL (30.0-125.0) Urine Protein/Creatinine Ratio 1.59 Urine Sodium 55 mmol/L (40-220) Urine Glucose Normal mg/dL (Normal) Urine Total Protein 91.7 mg/dL (1-14) H Assessment/Plan Assessment/Plan Altered level of consciousness/encephalopathy UTI with possible sepsis and encephalopathy Hepatic encephalopathy Diabetes Chronic kidney disease stage IIIB with a acute kidney injury Colon cancer Thrombocytopenia Plan: IV antibiotic. Urine culture. Repeat CBC CMP and ammonia level. Further plan per orders Plan discussed with: Patient, Other (Nursing) My Orders Orders - CAITLYN GARCIA MD Procedure Category Date Status Time Ceftriaxone 1gm/50ml PHA 04/14/24 In Process D5w (Rocephin) 09:00 Rifaximin (Xifaxan) PHA 04/13/24 In Process 22:00 Urine Bacterial MAVERICK 04/13/24 In Process Culture 10:28 Complete Blood Count LAB 04/14/24 Verified 06:00 Comprehensive LAB 04/14/24 Verified Metabolic Panel 06:00 Ammonia LAB 04/14/24 Verified 06:00 Chest Portable XY 04/13/24 Resulted 10:28 Pureed DIET 04/13/24 Transmitted Dinner Consistent DIET 04/13/24 Transmitted Carb(Ccho)Diabetes Dinner Date of Service: Apr 13, 2024 Billing Provider: CAITLYN GARCIA MD Common Visit Codes: [id number] INP/OBS CARE(HIGH) CAITLYN GARCIA MD Apr 13, 2024 14:23
[2024-04-14] MEDS: rifAXIMin 550 MG TAB PO SCH (00:23)
[2024-04-14 00:45] VITALS: PULSE 66; RESP 16; O2SAT 99
[2024-04-14 06:09] LABS: Basophils # (auto) 0 10 ^3/uL (0-0.2); Basophils % (auto) 0.6 % (0.0-2.0); Eosinophils # (auto) 0.1 10 ^3/uL (0-0.8); Eosinophils % (auto) 2.7 % (0.0-7.0); Hematocrit 35.1 % (36.0-46.0); Hemoglobin 11.4 g/dL (12.2-16.2); Lymphocytes # (auto) 0.8 10 ^3/uL (0.4-5.4); Lymphocytes % (auto) 26.1 % (10.0-50.0); Mean Corpuscular Hemoglobin 31.4 pg (28.0-32.0); Mean Corpuscular Hgb Conc. 32.6 g/dL (32.0-36.0); Mean Corpuscular Volume 96.5 fL (80.0-100.0); Monocytes # (auto) 0.4 10 ^3/uL (0-1.3); Monocytes % (auto) 11.5 % (0.0-12.0); Neutrophils # (auto) 1.9 10 ^3/uL (1.6-8.6); Neutrophils % (auto) 59.1 % (37.0-80.0); Nucleated Red Blood Cells % 0.1 %; Platelet Count (auto) 51 10^3/uL (140-450); Red Blood Cells 3.63 10^6/uL (4.0-5.20); Red Cell Distribution Width 18.8 % (11.8-14.3); White Blood Cell 3.2 10^3/uL (4.4-10.8)
[2024-04-14 06:17] LABS: Alanine Aminotransferase 33 U/L (7-40); Albumin 3.5 g/dL (3.2-4.8); Alkaline Phosphatase 102 U/L (46-116); Anion Gap 12 (5-15); BUN/Creatinine Ratio 12.2 (10.0-20.0); Blood Urea Nitrogen 20 mg/dL (9-23); Calcium 8.8 mg/dL (8.7-10.4)
[2024-04-14 06:18] LABS: Aspartate Aminotransferase 49 U/L (13-40); Bilirubin, Total 1.2 mg/dL (0.2-1.0); Carbon Dioxide 14 mmol/L (20-31); Chloride 123 mmol/L (98-107); Glucose 123 mg/dL (74-106); Potassium 2.8 mmol/L (3.5-5.1); Sodium 149 mmol/L (136-145)
[2024-04-14] MEDS: FAMOTIDINE (10MG/ML) 2ML VL IV SCH (06:41)
[2024-04-14] MEDS: cefTRIAXone 1GM/50ML D5W 50 ML IV SCH (09:10)
[2024-04-14 10:27] VITALS: PULSE 61; RESP 15; O2SAT 98
--- NOTE | 2024-04-14 10:46 | DVHPN2 ---
Progress Note Date Seen: Apr 14, 2024 Medical Necessity Reason Pt with a Central, PICC or Fol: No Subjective Review of Systems: NEURO:Abnormal Other Systems: Patient seen and examined by myself today in follow-up Objective vital signs Vital Sign Date Time Temp Pulse Resp B/P (MAP) Pulse Ox O2 Delivery O2 Flow Rate FiO2 04/14/24 10:27 61 15 98 Room Air* 0 21 04/14/24 10:00 132/58 (82) 04/13/24 16:00 97.9 97.9 Total Intake and Output 04/13/24 04/13/24 04/14/24 15:00 23:00 07:00 Intake Total 1250 ml 600 ml 100 ml Output Total 1250 ml 800 ml Balance 0 ml -200 ml 100 ml medications Current Medications Medications Dose Ordered Sig/Cecily Route Start Time Stop Time Status Last Admin Dose Admin Spironolactone 25 mg DAILY PO 04/13/24 10:00 04/13/24 09:24 25 MG Lactulose 30 ml Q4HR PO 04/12/24 22:00 04/14/24 04:32 30 ML Diagnostic Test (Pha) 1 strip ACHS 04/12/24 22:00 04/14/24 08:39 1 STRIP Insulin Human Regular HS SC 04/12/24 22:00 04/13/24 01:49 2 UNITS Insulin Human Regular AC SC 04/13/24 07:00 04/13/24 11:30 6 UNITS Dextrose 50 ml UD PRN IV 04/12/24 20:30 Sodium Chloride 10 ml Q8HR IV 04/12/24 22:00 04/14/24 06:41 10 ML Ondansetron HCl 4 mg Q4HP PRN IV 04/12/24 20:30 Docusate Sodium 100 mg BIDPRN PRN PO 04/12/24 20:30 Nitroglycerin 0.4 mg Q5MINP PRN SL 04/12/24 21:45 Morphine Sulfate 2 mg Q30M PRN IV 04/12/24 21:45 Famotidine 20 mg Q24H IV 04/14/24 06:00 04/14/24 06:41 20 MG Sodium Bicarbonate 100 ml/Sodium Chloride 1,100 ml @ 100 mls/hr Q11H IV 04/13/24 08:45 04/14/24 08:57 100 MLS/HR Ceftriaxone Sodium 50 ml @ 100 mls/hr DAILY@09 IV 04/14/24 09:00 04/14/24 09:10 100 MLS/HR Rifaximin 550 mg BID PO 04/13/24 22:00 04/14/24 00:23 550 MG Examination: LUNGS:Normal, CVS:Normal, MSK:Normal laboratory and microbiology Laboratory Tests 04/14/24 04:55 04/14/24 04:50 Test 04/14/24 04:50 Range/Units Serum Glucose 123 H 74-106 mg/dL Microbiology Date/Time Source Procedure Growth Status 04/13/24 09:41 Voided Urine Urine Culture - Preliminary Resulted 04/13/24 09:00 Stool Stool Culture - Preliminary Resulted 04/13/24 09:00 Stool Shiga Toxin I & II Pending Resulted Problem List/Assessment/Plan Problem List/Assessment/Plan Acute kidney injury superimposed Chronic Kidney Disease secondary hemodynamic mediated, FeNa > 2% Hypokalemic metabolic acidosis Dehydration Hepatic encephalopathy Thrombocytopenia Diabetes mellitus Anemia of chronic kidney disease Recommendations Kidney function slowly improving Increased urine output Cooley catheter Strict I&Os IV fluids with sodium bicarb Aggressive KCL replacement Magnesium sulfate IV piggyback Insulin sliding scale kidney ultrasound reported right hydronephrosis and bilateral echogenic kidney We will continue to follow Plan discussed with: Other (Nurse) RAYMOND OROZCO MD Apr 14, 2024 10:46
[2024-04-14] MEDS: POTASSIUM CHL 20MEQ/100ML 100 ML IV SCH (11:58)
--- NOTE | 2024-04-14 12:46 | DVHPN2 ---
Subjective Sleepy but answers and follows simple command Reviewed: Care Plan, H&P, Labs, Medications, Previous Orders, Radiology, Other (Consultants) Changes from previous H/P or p: No Changes Objective Vitals Vital Signs Date Time Temp Pulse Resp B/P (MAP) Pulse Ox O2 Delivery O2 Flow Rate FiO2 04/14/24 12:00 75 16 110/50 (70) 100 04/14/24 10:27 Room Air* 0 21 04/13/24 16:00 97.9 97.9 Intake/Output Intake and Output 04/14/24 07:00 Intake Total 1950 ml Output Total 2050 ml Balance -100 ml Intake IV Total 1950 ml Output Urine Total 850 ml Stool Total 1200 ml General Appearance: Alert, Cooperative, No acute distress, Other (More alert today and follows more commands.) HEENT: Atraumatic Lungs: Clear to auscultation Cardiovascular: Regular rate Abdomen: Normal bowel sounds, Soft, No tenderness, Other (Urostomy and colostomy) Medications Current Medications Medications Dose Ordered Sig/Cecily Route Start Time Stop Time Status Last Admin Dose Admin Spironolactone 25 mg DAILY PO 04/13/24 10:00 04/14/24 11:52 25 MG Lactulose 30 ml Q4HR PO 04/12/24 22:00 04/14/24 11:52 30 ML Diagnostic Test (Pha) 1 strip ACHS 04/12/24 22:00 04/14/24 12:17 1 STRIP Insulin Human Regular HS SC 04/12/24 22:00 04/13/24 01:49 2 UNITS Insulin Human Regular AC SC 04/13/24 07:00 04/14/24 12:17 2 UNITS Dextrose 50 ml UD PRN IV 04/12/24 20:30 Sodium Chloride 10 ml Q8HR IV 04/12/24 22:00 04/14/24 06:41 10 ML Ondansetron HCl 4 mg Q4HP PRN IV 04/12/24 20:30 Docusate Sodium 100 mg BIDPRN PRN PO 04/12/24 20:30 Nitroglycerin 0.4 mg Q5MINP PRN SL 04/12/24 21:45 Morphine Sulfate 2 mg Q30M PRN IV 04/12/24 21:45 Famotidine 20 mg Q24H IV 04/14/24 06:00 04/14/24 06:41 20 MG Sodium Bicarbonate 100 ml/Sodium Chloride 1,100 ml @ 100 mls/hr Q11H IV 04/13/24 08:45 04/14/24 08:57 100 MLS/HR Ceftriaxone Sodium 50 ml @ 100 mls/hr DAILY@09 IV 04/14/24 09:00 04/14/24 09:10 100 MLS/HR Rifaximin 550 mg BID PO 04/13/24 22:00 04/14/24 11:53 550 MG Potassium Chloride 100 ml @ 50 mls/hr Q2H IV 04/14/24 10:45 04/14/24 18:44 04/14/24 11:58 50 MLS/HR Laboratory Results Laboratory Tests 04/14/24 04:50 04/14/24 04:55 Chemistry Test 04/14/24 04:50 Albumin 3.5 g/dL (3.2-4.8) Calcium Level 8.8 mg/dL (8.7-10.4) Total Protein 6.0 g/dL (5.7-8.2) LFT Test 04/14/24 04:50 Alanine Aminotransferase (ALT) 33 U/L (7-40) Alkaline Phosphatase 102 U/L (46-116) Aspartate Amino Transferase (AST) 49 U/L (13-40) H Total Bilirubin 1.2 mg/dL (0.2-1.0) H Urinalysis Test 04/12/24 19:00 04/13/24 09:14 Urine Mucus Few (None Seen) Urine Color Yellow (Yellow) Urine Clarity Turbid (Clear) H Urine pH 7.0 (5.0-9.0) Urine Specific [place] 1.009 (1.001-1.035) Urine Protein 1+ (Negative) H Urine Ketones Negative (Negative) Urine Blood Trace /uL (Negative) H Urine Nitrite 1+ (Negative) H Urine Bilirubin Negative (Negative) Urine Urobilinogen Normal mg/dL (Negative) Urine Leukocyte Esterase 3+ /uL (Negative) Urine RBC 9 /hpf (0 - 4) Urine WBC Clumps Present /hpf (None Seen) Urine Microscopic WBC 153 /HPF (0-5) H Urine Squamous Epithelial Cells Few /hpf (<5) Urine Bacteria Few /hpf (None Seen) H Urine Creatinine 57.58 mg/dL (30.0-125.0) Urine Protein/Creatinine Ratio 1.59 Urine Sodium 55 mmol/L (40-220) Urine Glucose Normal mg/dL (Normal) Urine Total Protein 91.7 mg/dL (1-14) H Microbiology Microbiology Date/Time Source Procedure Growth Status 04/13/24 09:41 Voided Urine Urine Culture - Preliminary Resulted 04/13/24 09:00 Stool Stool Culture - Preliminary Resulted 04/13/24 09:00 Stool Shiga Toxin I & II Pending Resulted Assessment/Plan Assessment/Plan Altered level of consciousness/encephalopathy UTI with possible sepsis and encephalopathy Hepatic encephalopathy Diabetes Chronic kidney disease stage IIIB with a acute kidney injury Colon cancer Thrombocytopenia Hypokalemia Hypernatremia Plan: Replace potassium. Recheck ammonia. Recheck labs. Continue IV fluid as per Nephrology. Further plan per orders Plan discussed with: Patient, Spouse, Other (Nursing) My Orders Orders - CAITLYN GARCIA MD Procedure Category Date Status Time Pureed DIET 04/13/24 Transmitted Dinner Consistent DIET 04/13/24 Transmitted Carb(Ccho)Diabetes Dinner Date of Service: Apr 14, 2024 Billing Provider: CAITLYN GARCIA MD Common Visit Codes: [id number] INP/OBS CARE(HIGH) CAITLYN GARCIA MD Apr 14, 2024 12:46
[2024-04-14] MEDS: POTASSIUM EFFERVESENT TAB 25 MEQ PO ONE (13:46)
[2024-04-14 19:30] VITALS: PULSE 73; RESP 17; O2SAT 98
[2024-04-15 03:48] LABS: Basophils # (auto) 0 10 ^3/uL (0-0.2); Eosinophils # (auto) 0.1 10 ^3/uL (0-0.8); Hemoglobin 9.2 g/dL (12.2-16.2); Monocytes # (auto) 0.3 10 ^3/uL (0-1.3); Nucleated Red Blood Cells % 0.1 %; Red Blood Cells 2.88 10^6/uL (4.0-5.20); Red Cell Distribution Width 18.3 % (11.8-14.3); White Blood Cell 2.7 10^3/uL (4.4-10.8)
[2024-04-15 03:52] LABS: Basophils % (auto) 0.8 % (0.0-2.0); Lymphocytes # (auto) 0.8 10 ^3/uL (0.4-5.4); Lymphocytes % (auto) 27.8 % (10.0-50.0); Mean Corpuscular Hemoglobin 31.9 pg (28.0-32.0); Mean Corpuscular Volume 93.8 fL (80.0-100.0); Monocytes % (auto) 12.4 % (0.0-12.0); Neutrophils # (auto) 1.5 10 ^3/uL (1.6-8.6); Platelet Count (auto) 47 10^3/uL (140-450)
[2024-04-15 04:11] LABS: Alanine Aminotransferase 28 U/L (7-40); Alkaline Phosphatase 80 U/L (46-116); Anion Gap 10 (5-15); BUN/Creatinine Ratio 14.4 (10.0-20.0); Blood Urea Nitrogen 20 mg/dL (9-23); Carbon Dioxide 22 mmol/L (20-31); Glucose 86 mg/dL (74-106)
[2024-04-15 04:12] LABS: Bilirubin, Total 0.9 mg/dL (0.2-1.0)
[2024-04-15 04:26] LABS: Albumin 2.7 g/dL (3.2-4.8); Calcium 7.8 mg/dL (8.7-10.4); Chloride 116 mmol/L (98-107); Potassium 2.7 mmol/L (3.5-5.1); Sodium 148 mmol/L (136-145)
[2024-04-15] MEDS: SODIUM BICARB 8.4% 50Meq/50ml SYR Vial IV ONE (04:34)
[2024-04-15 04:42] LABS: Aspartate Aminotransferase 42 U/L (13-40); Total Protein 4.6 g/dL (5.7-8.2)
[2024-04-15] MEDS: POTASSIUM CHL 20MEQ/100ML 100 ML IV ONE ×2 (05:48→08:24)
[2024-04-15 08:00] VITALS: PULSE 65; RESP 17; O2SAT 98
[2024-04-15 08:40] VITALS: PULSE 63; RESP 16; O2SAT 100
[2024-04-15 12:30] VITALS: BP 116/54; PULSE 72; RESP 16; TEMP 98.3; O2SAT 97
[2024-04-15] MEDS: SOD CHL 0.45% 1,000 ML IV SCH (12:30)
--- NOTE | 2024-04-15 16:46 | DVHPN2 ---
Subjective Patient denies any symptoms at this time. Reviewed: Care Plan, H&P, Labs, Medications, Previous Orders, Radiology, Other (Consultants) Changes from previous H/P or p: No Changes General: Per HPI Objective Vitals Vital Signs Date Time Temp Pulse Resp B/P (MAP) Pulse Ox O2 Delivery O2 Flow Rate FiO2 04/15/24 12:30 98.3 72 16 116/54 (74) 97 98.3 04/15/24 08:40 Room Air* 0 21 Intake/Output Intake and Output 04/15/24 07:00 Intake Total 2400 ml Output Total 3110 ml Balance -710 ml IV Total 2400 ml Output Urine Total 550 ml Stool Total 2560 ml # Bowel Movements 1 General Appearance: Alert, Oriented X3, Cooperative, No acute distress HEENT: Atraumatic, PERRLA Lungs: Clear to auscultation Cardiovascular: Regular rate Abdomen: Normal bowel sounds, Soft, No tenderness, Other (Urostomy and colostomy) Skin: Dry, Intact Psych/Mental Status: Mental status NL, Mood NL Medications Current Medications Medications Dose Ordered Sig/Cecily Route Start Time Stop Time Status Last Admin Dose Admin Spironolactone 25 mg DAILY PO 04/13/24 10:00 04/15/24 09:58 25 MG Lactulose 30 ml Q4HR PO 04/12/24 22:00 04/15/24 13:54 30 ML Diagnostic Test (Pha) 1 strip ACHS 04/12/24 22:00 04/15/24 11:43 1 STRIP Insulin Human Regular HS SC 04/12/24 22:00 04/14/24 23:15 2 UNITS Insulin Human Regular AC SC 04/13/24 07:00 04/15/24 11:52 6 UNITS Dextrose 50 ml UD PRN IV 04/12/24 20:30 Sodium Chloride 10 ml Q8HR IV 04/12/24 22:00 04/15/24 13:53 10 ML Ondansetron HCl 4 mg Q4HP PRN IV 04/12/24 20:30 Docusate Sodium 100 mg BIDPRN PRN PO 04/12/24 20:30 Nitroglycerin 0.4 mg Q5MINP PRN SL 04/12/24 21:45 Morphine Sulfate 2 mg Q30M PRN IV 04/12/24 21:45 Famotidine 20 mg Q24H IV 04/14/24 06:00 04/15/24 06:07 20 MG Ceftriaxone Sodium 50 ml @ 100 mls/hr DAILY@09 IV 04/14/24 09:00 04/15/24 09:05 100 MLS/HR Rifaximin 550 mg BID PO 04/13/24 22:00 04/15/24 09:58 550 MG Sodium Chloride 1,000 ml @ 100 mls/hr Q10H IV 04/15/24 12:30 04/15/24 12:30 100 MLS/HR Laboratory Results Laboratory Tests 04/15/24 03:21 Chemistry Test 04/15/24 03:21 Albumin 2.7 g/dL (3.2-4.8) L Calcium Level 7.8 mg/dL (8.7-10.4) L Total Protein 4.6 g/dL (5.7-8.2) L LFT Test 04/15/24 03:21 Alanine Aminotransferase (ALT) 28 U/L (7-40) Alkaline Phosphatase 80 U/L (46-116) Aspartate Amino Transferase (AST) 42 U/L (13-40) H Total Bilirubin 0.9 mg/dL (0.2-1.0) Urinalysis Test 04/12/24 19:00 04/13/24 09:14 Urine Mucus Few (None Seen) Urine Color Yellow (Yellow) Urine Clarity Turbid (Clear) H Urine pH 7.0 (5.0-9.0) Urine Specific [place] 1.009 (1.001-1.035) Urine Protein 1+ (Negative) H Urine Ketones Negative (Negative) Urine Blood Trace /uL (Negative) H Urine Nitrite 1+ (Negative) H Urine Bilirubin Negative (Negative) Urine Urobilinogen Normal mg/dL (Negative) Urine Leukocyte Esterase 3+ /uL (Negative) Urine RBC 9 /hpf (0 - 4) Urine WBC Clumps Present /hpf (None Seen) Urine Microscopic WBC 153 /HPF (0-5) H Urine Squamous Epithelial Cells Few /hpf (<5) Urine Bacteria Few /hpf (None Seen) H Urine Creatinine 57.58 mg/dL (30.0-125.0) Urine Protein/Creatinine Ratio 1.59 Urine Sodium 55 mmol/L (40-220) Urine Glucose Normal mg/dL (Normal) Urine Total Protein 91.7 mg/dL (1-14) H Microbiology Microbiology Date/Time Source Procedure Growth Status 04/13/24 09:41 Voided Urine Urine Culture - Final Complete 04/13/24 09:00 Stool Stool Culture - Final Complete 04/13/24 09:00 Stool Shiga Toxin I & II - Final Complete Labs and/or images reviewed: Labs reviewed by me, Image(s) reviewed by me Assessment/Plan Assessment/Plan Impression: -hepatic encephalopathy -UTI -cirrhosis of the liver -history of colorectal cancer with colostomy , ileal conduit -anemia of chronic disease -acute kidney injury, vasomotor nephropathy -CKD stage IIIB Plan: -ammonia level improving. Patient neurologically improving. Decrease lactulose to q.8 hours. Continue rifaximin 550 mg p.o. b.i.d. -potassium replacement, change IV fluids to half-normal saline with 40 mEq of potassium chloride -continue Rocephin -repeat labs in a.m. Total time spent with patient discussing and formulating plan of care: 35 minutes. This medical document was created using an electronic medical record system with [employer] dictation system. Although this document has been carefully reviewed, there may still be some phonetic and typographical errors. These areas are purely typographical due to imperfections of the software programs, and do not reflect any compromise in the patient's medical care. Plan discussed with: Patient, Other (RN) My Orders Orders - GAYATRI DODGE NP Procedure Category Date Status Time Lactulose Oral PHA 04/15/24 Verified 22:00 1/2 Ns W Potassium PHA 04/15/24 Verified 40meq 16:45 Comprehensive LAB 04/16/24 Verified Metabolic Panel 04:00 Complete Blood Count LAB 04/16/24 Verified 04:00 Magnesium LAB 04/16/24 Verified 04:00 Oob To Chair ISABELA 04/15/24 Verified 16:39 Date of Service: Apr 15, 2024 Billing Provider: GAYATRI DODGE NP Common Visit Codes: [id number] INP/OBS CARE(HIGH) GAYATRI DODGE NP Apr 15, 2024 16:46
--- NOTE | 2024-04-15 16:48 | DVHPN2 ---
Progress Note Date Seen: Apr 15, 2024 Medical Necessity Reason Pt with a Central, PICC or Fol: No Objective vital signs Vital Sign Date Time Temp Pulse Resp B/P (MAP) Pulse Ox O2 Delivery O2 Flow Rate FiO2 04/15/24 12:30 98.3 72 16 116/54 (74) 97 98.3 04/15/24 08:40 Room Air* 0 21 Total Intake and Output 04/14/24 04/14/24 04/15/24 15:00 23:00 07:00 Intake Total 850 ml 700 ml 850 ml Output Total 400 ml 1710 ml 1000 ml Balance 450 ml -1010 ml -150 ml medications Current Medications Medications Dose Ordered Sig/Cecily Route Start Time Stop Time Status Last Admin Dose Admin Spironolactone 25 mg DAILY PO 04/13/24 10:00 04/15/24 09:58 25 MG Diagnostic Test (Pha) 1 strip ACHS 04/12/24 22:00 04/15/24 11:43 1 STRIP Insulin Human Regular HS SC 04/12/24 22:00 04/14/24 23:15 2 UNITS Insulin Human Regular AC SC 04/13/24 07:00 04/15/24 11:52 6 UNITS Dextrose 50 ml UD PRN IV 04/12/24 20:30 Sodium Chloride 10 ml Q8HR IV 04/12/24 22:00 04/15/24 13:53 10 ML Ondansetron HCl 4 mg Q4HP PRN IV 04/12/24 20:30 Docusate Sodium 100 mg BIDPRN PRN PO 04/12/24 20:30 Nitroglycerin 0.4 mg Q5MINP PRN SL 04/12/24 21:45 Morphine Sulfate 2 mg Q30M PRN IV 04/12/24 21:45 Famotidine 20 mg Q24H IV 04/14/24 06:00 04/15/24 06:07 20 MG Ceftriaxone Sodium 50 ml @ 100 mls/hr DAILY@09 IV 04/14/24 09:00 04/15/24 09:05 100 MLS/HR Rifaximin 550 mg BID PO 04/13/24 22:00 04/15/24 09:58 550 MG Lactulose 30 ml Q8H PO 04/15/24 22:00 UNV Potassium Chloride 40 meq/ Sodium Chloride 1,020 ml @ 100 mls/hr [id number] IV 04/15/24 16:45 UNV Examination: GENERAL:Abnormal, LUNGS:Abnormal laboratory and microbiology Laboratory Tests 04/15/24 03:21 Test 04/15/24 03:21 Range/Units Serum Glucose 86 74-106 mg/dL Microbiology Date/Time Source Procedure Growth Status 04/13/24 09:41 Voided Urine Urine Culture - Final Complete 04/13/24 09:00 Stool Stool Culture - Final Complete 04/13/24 09:00 Stool Shiga Toxin I & II - Final Complete Problem List/Assessment/Plan Problem List/Assessment/Plan Acute kidney injury superimposed Chronic Kidney Disease secondary hemodynamic mediated, FeNa > 2% Hypokalemic metabolic acidosis Dehydration Hepatic encephalopathy Thrombocytopenia Diabetes mellitus Anemia of chronic kidney disease Kidney function slowly improving Increased urine output Cooley catheter Strict I&Os IV fluids - 1/2 NS Aggressive KCL replacement Magnesium sulfate IV piggyback Insulin sliding scale kidney ultrasound reported right hydronephrosis and bilateral echogenic kidney We will continue to follow Plan discussed with: Patient ARANZA LE MD Apr 15, 2024 16:48
[2024-04-15 17:01] VITALS: BP 104/47; PULSE 67; RESP 16; TEMP 98; O2SAT 99
[2024-04-15] MEDS: POTASSIUM CHL 20 Meq TABLET PO ONE (17:27)
[2024-04-15] MEDS: POTASSIUM CHLORIDE 40 MEQ in SOD CHL 0.45% 1,000 ML IV SCH (18:00)
[2024-04-15 18:40] VITALS: BP 116/54; PULSE 72; RESP 16; TEMP 98.3; O2SAT 97
[2024-04-15 22:00] VITALS: BP 120/61; PULSE 75; RESP 18; TEMP 98.2; O2SAT 97
[2024-04-15] MEDS: LACTULOSE 20Gm/30ML SOLN PO SCH (22:00)
[2024-04-16 01:00] VITALS: BP 120/65; PULSE 70; RESP 18; TEMP 98.6; O2SAT 95
[2024-04-16 05:00] VITALS: BP 107/59; PULSE 67; RESP 18; TEMP 98.5; O2SAT 95
[2024-04-16 06:14] LABS: Basophils # (auto) 0 10 ^3/uL (0-0.2); Eosinophils # (auto) 0.1 10 ^3/uL (0-0.8); Eosinophils % (auto) 2.6 % (0.0-7.0); Hematocrit 30.4 % (36.0-46.0); Hemoglobin 10.2 g/dL (12.2-16.2); Lymphocytes # (auto) 0.9 10 ^3/uL (0.4-5.4); Lymphocytes % (auto) 28.5 % (10.0-50.0); Mean Corpuscular Hemoglobin 31.9 pg (28.0-32.0); Mean Corpuscular Hgb Conc. 33.5 g/dL (32.0-36.0); Mean Corpuscular Volume 95.2 fL (80.0-100.0); Monocytes # (auto) 0.3 10 ^3/uL (0-1.3); Monocytes % (auto) 9.7 % (0.0-12.0); Neutrophils # (auto) 1.9 10 ^3/uL (1.6-8.6); Neutrophils % (auto) 58.2 % (37.0-80.0); Nucleated Red Blood Cells % 0.3 %; Platelet Count (auto) 45 10^3/uL (140-450); Red Cell Distribution Width 18.6 % (11.8-14.3); White Blood Cell 3.2 10^3/uL (4.4-10.8)
[2024-04-16 06:39] LABS: Alanine Aminotransferase 28 U/L (7-40); Alkaline Phosphatase 82 U/L (46-116); Anion Gap 9 (5-15); BUN/Creatinine Ratio 12.3 (10.0-20.0); Blood Urea Nitrogen 17 mg/dL (9-23); Calcium 8.7 mg/dL (8.7-10.4); Glucose 91 mg/dL (74-106); Magnesium 2.3 mg/dL (1.6-2.6); Potassium 4.3 mmol/L (3.5-5.1)
[2024-04-16 06:51] LABS: Albumin 2.8 g/dL (3.2-4.8); Aspartate Aminotransferase 46 U/L (13-40); Carbon Dioxide 17 mmol/L (20-31); Chloride 120 mmol/L (98-107); Sodium 146 mmol/L (136-145)
[2024-04-16 09:00] VITALS: BP 110/52; PULSE 67; RESP 16; TEMP 98.2; O2SAT 98
--- NOTE | 2024-04-16 09:49 | DVHPN2 ---
Progress Note Date Seen: Apr 16, 2024 Medical Necessity Reason Pt with a Central, PICC or Fol: No Subjective Patient reports: Feels better Objective vital signs Vital Sign Date Time Temp Pulse Resp B/P (MAP) Pulse Ox O2 Delivery O2 Flow Rate FiO2 04/16/24 05:00 98.5 67 18 107/59 (75) 95 98.5 04/15/24 20:00 Room Air* 0 21 Total Intake and Output 04/15/24 04/15/24 04/16/24 15:00 23:00 07:00 Intake Total 600 ml 500 ml 1100 ml Output Total 1250 ml 800 ml 2650 ml Balance -650 ml -300 ml -1550 ml medications Current Medications Medications Dose Ordered Sig/Cecily Route Start Time Stop Time Status Last Admin Dose Admin Spironolactone 25 mg DAILY PO 04/13/24 10:00 04/15/24 09:58 25 MG Diagnostic Test (Pha) 1 strip ACHS 04/12/24 22:00 04/16/24 06:40 1 STRIP Insulin Human Regular HS SC 04/12/24 22:00 04/15/24 22:01 3 UNITS Insulin Human Regular AC SC 04/13/24 07:00 04/15/24 11:52 6 UNITS Dextrose 50 ml UD PRN IV 04/12/24 20:30 Sodium Chloride 10 ml Q8HR IV 04/12/24 22:00 04/16/24 06:38 10 ML Ondansetron HCl 4 mg Q4HP PRN IV 04/12/24 20:30 Docusate Sodium 100 mg BIDPRN PRN PO 04/12/24 20:30 Nitroglycerin 0.4 mg Q5MINP PRN SL 04/12/24 21:45 Morphine Sulfate 2 mg Q30M PRN IV 04/12/24 21:45 Famotidine 20 mg Q24H IV 04/14/24 06:00 04/16/24 06:38 20 MG Ceftriaxone Sodium 50 ml @ 100 mls/hr DAILY@09 IV 04/14/24 09:00 04/15/24 09:05 100 MLS/HR Rifaximin 550 mg BID PO 04/13/24 22:00 04/15/24 22:00 550 MG Lactulose 30 ml Q8H PO 04/15/24 22:00 04/16/24 06:40 30 ML Potassium Chloride 40 meq/ Sodium Chloride 1,020 ml @ 100 mls/hr [id number] IV 04/15/24 16:45 04/16/24 05:21 100 MLS/HR Examination: GENERAL:Normal laboratory and microbiology Laboratory Tests 04/16/24 05:02 Test 04/16/24 05:02 Range/Units Serum Glucose 91 74-106 mg/dL Microbiology Date/Time Source Procedure Growth Status 04/13/24 09:41 Voided Urine Urine Culture - Final Complete 04/13/24 09:00 Stool Stool Culture - Final Complete 04/13/24 09:00 Stool Shiga Toxin I & II - Final Complete Problem List/Assessment/Plan Problem List/Assessment/Plan Acute kidney injury superimposed Chronic Kidney Disease secondary hemodynamic mediated, FeNa > 2% Hypokalemic metabolic acidosis Dehydration Hepatic encephalopathy Thrombocytopenia Diabetes mellitus Anemia of chronic kidney disease no new renal recommendations has clinically has improved Kidney function slowly improving Increased urine output Cooley catheter Strict I&Os IV fluids - 1/2 NS Aggressive KCL replacement Magnesium sulfate IV piggyback Insulin sliding scale kidney ultrasound reported right hydronephrosis and bilateral echogenic kidney We will continue to follow Plan discussed with: Patient ARANZA LE MD Apr 16, 2024 09:49
[2024-04-16] MEDS ORDERED: POTA8TAB38 PO (11:05)
[2024-04-16] MEDS ORDERED: RIFA550T PO (11:07)
--- NOTE | 2024-04-16 11:10 | DVHDS2 ---
Discharge Summary Date of Admission Apr 12, 2024 at 21:41 Date of Discharge: Apr 16, 2024 Admitting Diagnosis Hepatic encephalopathy Labs/Diagnostic Data: Laboratory Results Test 04/16/24 05:59 04/16/24 05:02 04/15/24 03:21 04/13/24 09:14 POC Glucose 83 mg/dl (70-106) White Blood Count 3.2 10^3/uL (4.4-10.8) Red Blood Count 3.20 10^6/uL (4.0-5.20) Hemoglobin 10.2 g/dL (12.2-16.2) Hematocrit 30.4 % (36.0-46.0) Mean Corpuscular Volume 95.2 fL (80.0-100.0) Mean Corpuscular Hemoglobin 31.9 pg (28.0-32.0) Mean Corpuscular Hemoglobin Concent 33.5 g/dL (32.0-36.0) Red Cell Distribution Width 18.6 % (11.8-14.3) Platelet Count 45 10^3/uL (140-450) Mean Platelet Volume 8.1 fL (6.9-10.8) Neutrophils (%) (Auto) 58.2 % (37.0-80.0) Lymphocytes (%) (Auto) 28.5 % (10.0-50.0) Monocytes (%) (Auto) 9.7 % (0.0-12.0) Eosinophils (%) (Auto) 2.6 % (0.0-7.0) Basophils (%) (Auto) 1.0 % (0.0-2.0) Neutrophils # (Auto) 1.9 10 ^3/uL (1.6-8.6) Lymphocytes # (Auto) 0.9 10 ^3/uL (0.4-5.4) Monocytes # (Auto) 0.3 10 ^3/uL (0-1.3) Eosinophils # (Auto) 0.1 10 ^3/uL (0-0.8) Basophils # (Auto) 0 10 ^3/uL (0-0.2) Nucleated Red Blood Cells 0.3 % Sodium Level 146 mmol/L (136-145) Potassium Level 4.3 mmol/L (3.5-5.1) Chloride Level 120 mmol/L (98-107) Carbon Dioxide Level 17 mmol/L (20-31) Anion Gap 9 (5-15) Blood Urea Nitrogen 17 mg/dL (9-23) Creatinine 1.38 mg/dL (0.550-1.02) Glomerular Filtration Rate Calc 42 mL/min (>90) BUN/Creatinine Ratio 12.3 (10.0-20.0) Serum Glucose 91 mg/dL (74-106) Calcium Level 8.7 mg/dL (8.7-10.4) Magnesium Level 2.3 mg/dL (1.6-2.6) Total Bilirubin 1.0 mg/dL (0.2-1.0) Aspartate Amino Transferase (AST) 46 U/L (13-40) Alanine Aminotransferase (ALT) 28 U/L (7-40) Alkaline Phosphatase 82 U/L (46-116) Total Protein 5.0 g/dL (5.7-8.2) Albumin 2.8 g/dL (3.2-4.8) Ammonia 62 umol/L (11-32) Urine Color Yellow (Yellow) Urine Clarity Turbid (Clear) Urine pH 7.0 (5.0-9.0) Urine Specific [place] 1.009 (1.001-1.035) Urine Protein 1+ (Negative) Urine Ketones Negative (Negative) Urine Blood Trace /uL (Negative) Urine Nitrite 1+ (Negative) Urine Bilirubin Negative (Negative) Urine Urobilinogen Normal mg/dL (Negative) Urine Leukocyte Esterase 3+ /uL (Negative) Urine RBC 9 /hpf (0 - 4) Urine WBC Clumps Present /hpf (None Seen) Urine Microscopic WBC 153 /HPF (0-5) Urine Squamous Epithelial Cells Few /hpf (<5) Urine Bacteria Few /hpf (None Seen) Urine Creatinine 57.58 mg/dL (30.0-125.0) Urine Protein/Creatinine Ratio 1.59 Urine Sodium 55 mmol/L (40-220) Urine Glucose Normal mg/dL (Normal) Urine Total Protein 91.7 mg/dL (1-14) Test 04/13/24 09:00 04/13/24 06:40 04/12/24 19:00 04/12/24 16:15 Stool Occult Blood Negative (Negative) Stool Occult Blood Sample #3 (Negative) Stool for White Cells None seen Phosphorus Level 2.5 mg/dL (2.4-5.1) Vitamin D 25-Hydroxy 29.5 ng/mL (30.0-100) Parathyroid Hormone (Intact) 53.6 pg/mL (18.4-80.1) Urine Mucus Few (None Seen) Urine Opiates Screen Neg (NEGATIVE) Urine Fentanyl Screen Neg (NEGATIVE) Urine Barbiturates Screen Neg (NEGATIVE) Urine Phencyclidine Screen Neg (NEGATIVE) Urine Amphetamines Screen Neg (NEGATIVE) Urine Benzodiazepines Screen Neg (NEGATIVE) Urine Cocaine Screen Neg (NEGATIVE) Urine Cannabinoids Screen Neg (NEGATIVE) Differential Total Cells Counted 100.0 (100) Neutrophils % (Manual) 86 (37.0-80.0) Band Neutrophils % (Manual) 0 Lymphocytes % (Manual) 8 (10.0-50.0) Monocytes % (Manual) 5 (0-12) Eosinophils % (Manual) 1 (0-7) Basophils % (Manual) 0 (0.0-2.0) Metamyelocytes % (manual) 0 Myelocytes % (Manual) 0 Promyelocytes % (Manual) 0 Blast Cells % (Manual) 0 Reactive Lymphocytes 0 Platelet Estimate Decreased Lactic Acid Level 1.7 mmol/L (0.4-2.0) Other Laboratory Tests 04/16/24 05:02 Brief Hx & Hospital Course: History of Present Illness The patient is a 64-year-old female past medical history of DM, UTIs, chronic kidney failure, and colon cancer presented to [facility] ED for evaluation of altered level of consciousness. As reported by stull hewer, patient's suddenly became unresponsive to name, associated generalized weakness, getting worse that prompted this visit. Patient was seen and evaluated in the ED, laboratory data shows WBC 5.2, hemoglobin 11.7, hematocrit 35.1, platelets 48119, sodium 142, potassium 2.1, BUN 25, creatinine 1.94, GFR 28, glucose 196, total bilirubin 2.8, ammonia 88, AST 42, ALT 35. Head CT showed no acute intracranial process. Patient was given lactulose, IV potassium rider, please see medication orders section in the computer. On my assessment, patient remains altered, no diaphoresis, no dizziness, no shortness of breath, no nausea, no vomiting, no fever, no chills. Patient was admitted for further evaluation and medical management. Course of hospitalization: Patient was started on lactulose q.4 hours with the patient having multiple bowel movements and neurological status improving. Patient was started on IV hydration with Nephrology consultation placed. Patient was also found to have severe hypokalemia for which potassium was replaced, now within normal limits. Long discussion was made with the patient as well as who was bedside regarding discharge planning. He will continue with lactulose as ordered 3 times a day, as well as starting rifaximin 550 mg p.o. twice a day for 30 days. Given the patient's potassium wasting from frequent stools from lactulose, patient will be placed on Klor-Con 8 mEq every other day with recommendations for the patient to have labs drawn prior to seeing her PCP. Patient was agreeable with discharge plan. All questions answered. Physical examination General: Alert and Oriented x3. No acute distress. Well-nourished. Eyes: EOMI. Anicteric. HENT: Moist mucous membranes. Lungs: Clear to auscultation bilaterally. No accessory muscle use. Cardiovascular: Regular rate and rhythm. No murmur. No JVD. Abdomen: Soft, non-tender and non-distended. No palpable masses. Extremities: No edema. Non-tender. Skin: No rashes or lesions. Warm. Neurologic: No focal neurological deficits. CN II-XII grossly intact, but not individually tested. Psychiatric: Cooperative. Appropriate mood and affect. Total time spent with patient discussing and formulating plan of care: 35 minutes. This medical document was created using an electronic medical record system with [employer] dictation system. Although this document has been carefully reviewed, there may still be some phonetic and typographical errors. These areas are purely typographical due to imperfections of the software programs, and do not reflect any compromise in the patient's medical care. Consults/Reason for consult Nephrology: Acute kidney injury Condition at Discharge: Guarded Final Diagnosis/Problems List Hepatic encephalopathy Secondary Diagnosis: -hepatic encephalopathy -UTI -cirrhosis of the liver -history of colorectal cancer with colostomy , ileal conduit -anemia of chronic disease -acute kidney injury, vasomotor nephropathy -CKD stage IIIB -thrombocytopenia -acute kidney injury, vasomotor nephropathy Discharge Disposition: Home Discharge Instruct/Medications Diet: Cardiac 2g Na,low cholest, Renal Activity: No Restrictions, As Tolerated Follow Up/Referral: Follow up with established appointments with arrt technologist, PCP Medications: Continue all home medications Rifaximin 550 mg p.o. twice a day times 30 days Klor-Con 8 mEq use give every other day until lab work has been drawn by PCP Discharge Statement: "Patient was advised to return to the ER or call 911 if any headaches, dizziness, shortness of breath, chest pain, abdominal pain, bleeding, fevers, or worsening of medical condition. Patient was counseled about treatment plan, medications, possible side effects, patientverbalized understanding. All questions were answered to the best of my ability. This discharge took greater then 30 minutes in planning, reviewing documentation, counseling the patient, and discussing with other team members." ASSESSMENT ASSESSMENT Assessment Hepatic encephalopathy Date of Service: Apr 16, 2024 Billing Provider: GAYATRI DODGE NP Common Visit Codes: 65246-ISM/OBS DISCH DAY >30min GAYATRI DODGE NP Apr 16, 2024 11:10
[2024-04-16 12:38] VITALS: BP 110/45; PULSE 70; RESP 16; TEMP 98.5; O2SAT 97
[2024-04-16 14:02] VITALS: TEMP 36.9
== END 2024-04-16 15:35 | disposition home or self-care (01) ==
LOC: ER 15:23 → OVERFLOW 21:41 → WEST WING 04-15 12:08
PROVIDERS: ADMIT Nurse Practitioner Family; ATTEND Nurse Practitioner Acute Care
PROC: 05HF33Z Insertion of Infusion Device into Left Cephalic Vein, Percutaneous Approach (ICD-10-PCS; principal; 2024-04-13)
PROC: B54NZZA Ultrasonography of Left Upper Extremity Veins, Guidance (ICD-10-PCS; 2024-04-13)
DX: K76.82 Hepatic encephalopathy (principal); N17.0 Acute kidney failure with tubular necrosis; D69.6 Thrombocytopenia, unspecified; E87.20 Acidosis, unspecified; D63.8 Anemia in other chronic diseases classified elsewhere; E87.0 Hyperosmolality and hypernatremia; N30.00 Acute cystitis without hematuria; E86.0 Dehydration; E11.22 Type 2 diabetes mellitus with diabetic chronic kidney disease; E87.6 Hypokalemia; N18.32 Chronic kidney disease, stage 3b; K74.60 Unspecified cirrhosis of liver; Z88.5 Allergy status to narcotic agent; Z93.2 Ileostomy status; Z93.3 Colostomy status; Z85.048 Personal history of other malignant neoplasm of rectum, rectosigmoid junction, and anus; Z83.3 Family history of diabetes mellitus
CPT/HCPCS: 36415; 70450; 71045; 76775; 80053; 80307; 81001; 82140; 82270; 82306; 82570; 82962; 83605; 83735; 83970; 84100; 84132; 84156; 84300; 85007; 85025; 85027; 85048; 87045; 87086; 87427; 92610; 93005; G0378; J1815; J3480; J3490

== ENCOUNTER 2024-09-12 07:21 | Inpatient (IN) | payer MEDICARE, MEDICAID ==
[~2024-09-12] VITALS: Ht 152.4 cm; Wt 54.0 kg
[~2024-09-12 07:21] MED LIST changes: +POTA8TAB38 PO
--- NOTE | 2024-09-12 07:36 | ED.PDOC ---
History of Present Illness HPI Comments 64-year-old male brought by because of altered level of consciousness. She has been confused for the past two days. She does have a history of liver cirrhosis. Last time she was altered was two months ago for which she was admitted at [facility]. She does have a history of liver cirrhosis hypertension. She does take lactulose. Unable to get any history from the patient. Family at bedside. Time Seen by MD: 07:31 Primary Care Provider: [facility] group Reviewed Notes: Nurses Notes, Medications, Allergies Allergies: Coded Allergies: Codeine (Verified Allergy, Unknown, 08/04/23) Home Meds Active Scripts Rifaximin (Xifaxan) 550 Mg Tab, 1 TAB PO BID for 30 Days, #60 TAB Prov:GAYATRI DODGE NP 04/16/24 Potassium Chloride (Klor-Con 8) 8 Meq Tab, 8 MEQ PO EOD for 20 Days, #20 TAB Prov:GAYATRI DODGE NP 04/16/24 Lactulose (Lactulose) 10 Gm/15 Ml Rita, 10 GM PO TID for 30 Days, #120 ML 3 Refills Prov:GAYATRI DODGE NP 12/18/23 Rifaximin (Xifaxan) 550 Mg Tab, 550 MG PO BID for 30 Days, #60 TAB 2 Refills Prov:GAYATRI DODGE NP 12/18/23 Pantoprazole Sodium Sesquihydr (Pantoprazole Sodium) 40 Mg Tab, 40 MG PO DAILY@0600 for 30 Days, #30 TAB 2 Refills Prov:KODAK TORRE MD 11/01/23 Spironolactone (Aldactone) 25 Mg Tab, 25 MG PO DAILY for 30 Days, #30 TAB 3 Refills Prov:KODAK TORRE MD 11/01/23 Potassium Chloride (Potassium Chloride ER) 20 Meq Tab, 1 TAB PO BID for 90 Days, #180 TAB Prov:OJ LYNCH 10/12/23 Lactulose (Lactulose) 10 Gm/15 Ml Rita, 30 ML PO TID for 90 Days, #5 ML 5 Refills Prov:OJ LYNCH RESIDENT 10/12/23 Reported Medications Ergocalciferol (Vitamin D) 50,000 Unit Cap, 1 CAP PO QWEEKLY 10/10/23 Omeprazole (Omeprazole Dr) 20 Mg Cap, 1 CAP PO DAILY 10/10/23 Ferrous Sulfate (Ferosul) 325 Mg Tab, 1 TAB PO DAILY 10/10/23 Insulin Glargine (Basaglar Kwikpen) 100 Unit/Ml Inj, SC 10/10/23 Sertraline Hcl (Sertraline Hcl) 100 Mg Tab, 1 TAB PO DAILY 10/10/23 Hydrocortone (Hydrocortisone 2.5%) 1 Applic Ap, [facility] 10/10/23 Information Source: Relative () Past Medical History PAST MEDICAL HISTORY: Cancer, CKF, DM, UTI'S Surgical History: HOME COMFORT ADVISOR History: No Pertinent HOME COMFORT ADVISOR History Family History Family History: Unknown Social History Smoker: Non-Smoker Alcohol: Denies ETOH Use Drugs: Denies Drug Use Lives In: Home Physical Exam General Appearance: Moderate Distress HEENT: Normal ENT Inspection, Pharynx Normal, TMs Normal Neck: Full Range of Motion, Non-Tender, Normal, Normal Inspection Respiratory: Chest Non-Tender, Lungs Clear, No Accessory Muscle Use, No Respiratory Distress, Normal Breath Sounds Cardiovascular: No Edema, No JVD, No Murmur, No Gallop, Normal Peripheral Pulses, Regular Rate/Rhythm Breast Exam: Deferred Gastrointestinal: No Organomegaly, Non Tender, No Pulsatile Mass, Normal Bowel Sounds, Soft Genitalia: Deferred Pelvic: Deferred Rectal: Deferred Extremities: No calf tenderness, Normal capillary refill, No pedal edema Musculoskeletal : Apperance: Normal Neurologic: Disoriented, No Motor Deficits, Normal Affect, Normal Mood, No Sensory Deficits Cerebellar Function: NOT DONE Reflexes: NOT DONE Skin: Dry, Normal Color, Warm Peripheral Pulses: 3+ Radial (R), 3+ Radial (L) Lymphatic: No Adenopathy Was a procedure done? Was a procedure done?: No EKG EKG : Cardiac Rhythm: NSR Differential Dx Considerations may include: Hepatic encephalopathy X-Ray, Labs, Meds, VS Vital Signs Date Time Temp Pulse Resp B/P (MAP) Pulse Ox O2 Delivery O2 Flow Rate FiO2 09/12/24 08:15 99 16 98 Room Air* 0 21 09/12/24 08:15 97.9 99 16 141/47 (78) 97 97.9 09/12/24 07:44 94 09/12/24 07:30 98.2 92 16 125/50 (75) 99 98.2 Lab Test 09/12/24 09:08 09/12/24 08:21 09/12/24 07:38 Range/Units Sodium Level 150 H 136-145 mmol/L Potassium Level 3.6 3.5-5.1 mmol/L Chloride Level 127 H 98-107 mmol/L Carbon Dioxide Level < 10 *L 20-31 mmol/L Anion Gap 13.06612 5-15 Blood Urea Nitrogen 28 H 9-23 mg/dL Creatinine 2.28 H 0.550-1.02 mg/dL Glomerular Filtration Rate Calc 23 >90 mL/min BUN/Creatinine Ratio 12.3 10.0-20.0 Serum Glucose 133 H 74-106 mg/dL Calcium Level 10.3 8.7-10.4 mg/dL Total Bilirubin 1.7 H 0.2-1.0 mg/dL Aspartate Amino Transferase (AST) 34 <34 U/L Alanine Aminotransferase (ALT) 20 7-40 U/L Alkaline Phosphatase 97 46-116 U/L Total Protein 6.9 5.7-8.2 g/dL Albumin 3.6 3.2-4.8 g/dL White Blood Count 5.9 4.4-10.8 10^3/uL Red Blood Count 3.69 L 4.0-5.20 10^6/uL Hemoglobin 11.6 L 12.2-16.2 g/dL Hematocrit 35.8 L 36.0-46.0 % Mean Corpuscular Volume 96.9 80.0-100.0 fL Mean Corpuscular Hemoglobin 31.5 28.0-32.0 pg Mean Corpuscular Hemoglobin Concent 32.5 32.0-36.0 g/dL Red Cell Distribution Width 16.2 H 11.8-14.3 % Platelet Count 57 L 140-450 10^3/uL Mean Platelet Volume 8.4 6.9-10.8 fL Neutrophils (%) (Auto) 68.5 37.0-80.0 % Lymphocytes (%) (Auto) 24.6 10.0-50.0 % Monocytes (%) (Auto) 5.2 0.0-12.0 % Eosinophils (%) (Auto) 1.1 0.0-7.0 % Basophils (%) (Auto) 0.6 0.0-2.0 % Neutrophils # (Auto) 4.0 1.6-8.6 10 ^3/uL Lymphocytes # (Auto) 1.4 0.4-5.4 10 ^3/uL Monocytes # (Auto) 0.3 0-1.3 10 ^3/uL Eosinophils # (Auto) 0.1 0-0.8 10 ^3/uL Basophils # (Auto) 0 0-0.2 10 ^3/uL Nucleated Red Blood Cells 0.4 % Lactic Acid Level 2.4 *H 0.4-2.0 mmol/L Ammonia 193 *H 11-32 umol/L Troponin I High Sensitivity 9 </=34 ng/L POC Glucose 122 H 70-106 mg/dl Current Medications Medications (Trade) Dose Ordered Sig/Cecily Route Start Time Stop Time Status Last Admin Sodium Chloride 1,000 ml @ 1,000 mls/hr Q1H ONCE IV 09/12/24 07:45 09/12/24 08:44 DC 09/12/24 08:34 Sodium Chloride 1,000 ml @ 150 mls/hr Q6H40M ONCE IV 09/12/24 07:45 09/12/24 14:24 09/12/24 08:34 [place] [address] Ph: [phone] DIAGNOSTIC IMAGING Diagnostic Imaging Report : [id number] Signed PATIENT: CHELSEA NELSONCCT: [id number] UNIT: [id number] : 1960 LOC: ER ROOM / BED: / AGE / SEX: 64 / F ADM STATUS: REG ER SERVICE 0731 ORDERING PHYSICIAN: ARIANNA RANDALL MD PROCEDURE(s): HWOCT - HEAD WITHOUT CONTRAST REASON: altered ORDER NUMBER(s): [id number], ACCESSION NUMBER(s): [id number] EXAM: CT HEAD WITHOUT CONTRAST INDICATION: altered TECHNIQUE: CT of the head without intravenous contrast. Radiation Dose : 1. Head: CT Dose: CTDI volume is 50.87 mGy. Dose-length product is 900.9 mGy*cm The dose indicators for CT are the volume Computed Tomography (CT) Dose Index (CTDIvol) and the Dose Length Product (DLP), and are measured in units of mGy and mGy-cm, respectively. These indicators are not patient dose, but values generated from the CT scanner acquisition factors. The report includes radiation exposure data for exposures received during this examination. COMPARISON: CT HEAD WITHOUT CONTRAST on DOS: 04/12/24, CT HEAD WITHOUT CONTRAST on DOS: 10/23/23, CT HEAD WITHOUT CONTRAST on DOS: 10/09/23 FINDINGS: There is no evidence of acute intracranial hemorrhage, extra-axial collection, mass effect, midline shift, herniation or hydrocephalus. The ventricles, sulci and cisterns are age appropriate. The garcia-white differentiation is intact. Patchy periventricular and subcortical white matter hypoattenuation is nonspecific but may be related to small vessel ischemic disease. The visualized paranasal sinuses and mastoid air cells are clear. The surrounding soft tissues and osseous structures are unremarkable. IMPRESSION: No acute intracranial abnormality. Radiation optimization: All CT scans at this facility use at least one of these dose optimization techniques: automated exposure control mA and/or kV adjustment per patient size (includes targeted exams where dose is matched to clinical indication) or iterative reconstruction. ATED BY: CYRIL KOVACS MD DICTATED DATE/TIME: 09/12/24856 SIGNED BY: CYRIL KOVACS MD SIGNED DATE/TIME: 09/12/24856 CC: [place] [id number] Ph: [phone] DIAGNOSTIC IMAGING Diagnostic Imaging Report : [id number] Signed PATIENT: CHELSEA NELSONCCT: [id number] UNIT: [id number] : 1960 LOC: ER ROOM / BED: / AGE / SEX: 64 / F ADM STATUS: REG ER SERVICE 0731 ORDERING PHYSICIAN: ARIANNA RANDALL MD PROCEDURE(s): CXRP - CHEST PORTABLE REASON: sob ORDER NUMBER(s): [id number], ACCESSION NUMBER(s): [id number] CHEST RADIOGRAPH Indication: sob Technique: Single frontal view of the chest was obtained COMPARISON: XY CHEST PORTABLE on DOS: 04/13/24, XY CHEST PORTABLE on DOS: 12/08/23, XY CHEST PORTABLE on DOS: 12/05/23, XY CHEST PORTABLE on DOS: 10/25/23, XY CHEST XRAY 1 VIEW on DOS: 10/24/23 FINDINGS: Lines and Tubes: None Lungs: Clear Pleura: No effusion. No pneumothorax. Cardiomediastinal contours: Unremarkable Bones: Unremarkable IMPRESSION: No acute disease. ATED BY: CYRIL KOVACS MD DICTATED DATE/TIME: 09/12/24839 SIGNED BY: CYRIL KOVACS MD SIGNED DATE/TIME: 09/12/24839 CC: Patient altered. History of liver disease. Hepatic encephalopathy. Ammonia elevated. Was given lactulose. Chest x-ray reviewed does not show any acute changes. Last time she felt like this was few months ago. Explained to the family. Continue monitoring. CT of the head reviewed does not show any acute changes. Time of 1ST Reevaluation: 10:16 Reevaluation 1ST: Unchanged Patient Education/Counseling: Pt Unresponsive Family Education/Counseling: Diagnosis, Treatment SEPSIS Sepsis Screen Physician Orders Head Without Contrast (09/12/24 07:31) Blood Culture (09/12/24 07:31) Chest Portable (09/12/24 07:31) Urinalysis (09/12/24 07:31) Sodium Chloride 0.9% (09/12/24 07:45) Electrocardigram (09/12/24 08:03) Azithromycin 500mg/ 250ml (Zithromax 50 (09/12/24 10:00) Chest Xray 1 View (09/12/24 10:10) Ngt/Ogt (09/12/24 ) Vital Signs Date Time Temp Pulse Resp B/P (MAP) Pulse Ox O2 Delivery O2 Flow Rate FiO2 09/12/24 08:15 99 16 98 Room Air* 0 21 09/12/24 08:15 97.9 99 16 141/47 (78) 97 97.9 09/12/24 07:44 94 09/12/24 07:30 98.2 92 16 125/50 (75) 99 98.2 Laboratory Tests Test 09/12/24 08:21 Lactic Acid Level 2.4 mmol/L (0.4-2.0) *H White Blood Count 5.9 10^3/uL (4.4-10.8) Medications Medications Dose Ordered Sig/Cecily Route Start Time Stop Time Status Last Admin Dose Admin Sodium Chloride 1,000 ml @ 150 mls/hr Q6H40M ONCE IV 09/12/24 07:45 09/12/24 14:24 09/12/24 08:34 Sodium Chloride 1,000 ml @ 1,000 mls/hr Q1H ONCE IV 09/12/24 07:45 09/12/24 08:44 DC 09/12/24 08:34 Departure 1 Departure Time of Disposition: 10:18 Impression: Primary Impression: Hepatic encephalopathy Disposition: ADMITTED INPATIENT Admit to: Med Surg Condition: Guarded Critical Care Note Critical Care Time?: Yes (90 min-critical care time only) Critical care comment: Altered Stability Stability form required: No Heart Score Heart Score: Heart Score Response (Comments) Value History Slightly Suspicious 0 EKG Normal 0 Age >65 2 Risk Factors >3 or Hx ASHD 2 Troponin Normal limit 0 Total 4 I personally scribed for ARIANNA RANDALL MD ([email or web address]) on 09/12/24 at 09:04. Electronically submitted by Marcia Kearney ([email or web address]). I personally scribed for ARIANNA RANDALL MD ([email or web address]) on 09/12/24 at 09:05. Electronically submitted by Marcia Kearney ([email or web address]). I personally scribed for ARIANNA RANDALL MD ([email or web address]) on 09/12/24 at 09:08. Electronically submitted by Marcia Kearney ([email or web address]). ARIANNA RANDALL MD Sep 12, 2024 07:36
[2024-09-12] MEDS: PIPERACILLIN-TAZOB 3.375GM 100 ML IV ONE (07:45)
[2024-09-12 08:15] VITALS: PULSE 99; RESP 16; O2SAT 98
[2024-09-12] MEDS: SODIUM CHLORIDE 0.9% 1,000 ML IV ONE ×2 (08:34)
[2024-09-12 08:42] LABS: Hemoglobin 11.6 g/dL (12.2-16.2)
[2024-09-12 08:43] LABS: Hematocrit 35.8 % (36.0-46.0); Mean Corpuscular Hemoglobin 31.5 pg (28.0-32.0); Mean Corpuscular Volume 96.9 fL (80.0-100.0); Nucleated Red Blood Cells % 0.4 %
--- NOTE | 2024-09-12 08:43 | DVH ---
CHEST RADIOGRAPH Indication: sob Technique: Single frontal view of the chest was obtained COMPARISON: XY CHEST PORTABLE on DOS: 04/13/24, XY CHEST PORTABLE on DOS: 12/08/23, XY CHEST PORTABLE o n DOS: 12/05/23, XY CHEST PORTABLE on DOS: 10/25/23, XY CHEST XRAY 1 VIEW on DOS: 10/24/23 FINDINGS: Lines and Tubes: None Lungs: Clear Pleura: No effusion. No pneumothorax. Cardiomediastinal contours: Unremarkable Bones: Unremarkable IMPRESSION: No acute disease.
[2024-09-12 08:58] LABS: Lactic Acid w/Reflex 2.4 mmol/L (0.4-2.0)
--- NOTE | 2024-09-12 08:59 | DVH ---
EXAM: CT HEAD WITHOUT CONTRAST INDICATION: altered TECHNIQUE: CT of the head without intravenous contrast. Radiation Dose : 1. Head: CT Dose: CTDI volume is 50.87 mGy. Dose-length product is 900.9 mGy*cm The dose indicators for CT are the volume Computed Tomography (CT) Dose Index (CTDIvol) and the Dose Length Product (DLP), and are measured in units of mGy and mGy-cm, respectively. These indicators are not patient dose, but values generated from the CT scanner acquisition factors. The report includes radiation exposure data for exposures received during this examination. COMPARISON: CT HEAD WITHOUT CONTRAST on DOS: 04/12/24, CT HEAD WITHOUT CONTRAST on DOS: 10/23/23, CT HEA D WITHOUT CONTRAST on DOS: 10/09/23 FINDINGS: There is no evidence of acute intracranial hemorrhage, extra-axial collection, mass effect, midline s hift, herniation or hydrocephalus. The ventricles, sulci and cisterns are age appropriate. The garcia-white differentiation is intact. Patchy periventricular and subcortical white matter hypoattenuation is nonspecific but may be related to small vessel ischemic disease. The visualized paranasal sinuses and mastoid air cells are clear. The surrounding soft tissues and osseous structures are unremarkable. IMPRESSION: No acute intracranial abnormality. Radiation optimization: All CT scans at this facility use at least one of these dose optimization rojelio hniques: automated exposure control mA and/or kV adjustment per patient size (includes targeted exam s where dose is matched to clinical indication) or iterative reconstruction.
[2024-09-12 09:30] VITALS: PULSE 89; RESP 16; O2SAT 99
[2024-09-12 09:43] LABS: Alanine Aminotransferase 20 U/L (7-40); Albumin 3.6 g/dL (3.2-4.8); Alkaline Phosphatase 97 U/L (46-116); Anion Gap 13.00001 (5-15); BUN/Creatinine Ratio 12.3 (10.0-20.0); Calcium 10.3 mg/dL (8.7-10.4); Potassium 3.6 mmol/L (3.5-5.1); Total Protein 6.9 g/dL (5.7-8.2)
[2024-09-12 09:46] LABS: Chloride 127 mmol/L (98-107); Glucose 133 mg/dL (74-106); Sodium 150 mmol/L (136-145)
[2024-09-12 09:47] LABS: Bilirubin, Total 1.7 mg/dL (0.2-1.0); Blood Urea Nitrogen 28 mg/dL (9-23)
[2024-09-12 09:48] LABS: Carbon Dioxide < 10 mmol/L (20-31)
--- NOTE | 2024-09-12 10:39 | DVH ---
AP portable chest CLINICAL INDICATION: NG placement FINDINGS: Heart size is normal. No infiltrates or effusions. No bony thoracic abnormalities. NG tube tip in the stomach IMPRESSION: 1. NG tube tip in the stomach.
[2024-09-12] MEDS: AZITHROMYCIN 500MG/ 250ML 250 ML IV ONE (11:10)
[2024-09-12] MEDS: LACTULOSE 20Gm/30ML SOLN PO ONE (11:11)
[2024-09-12] MEDS ORDERED: SPIR25TA8 PO (11:13)
[2024-09-12] MEDS ORDERED: ACETAMINOPHEN 325 MG TAB PO PRN (11:15)
[2024-09-12] MEDS ORDERED: ONDANSETRON HCL 4 MG/2 ML VIAL IV PRN (11:15)
[2024-09-12] MEDS ORDERED: DEXTROSE (50%) 50ML SYRG IV PRN (11:15)
--- NOTE | 2024-09-12 11:27 | DVHHP2 ---
History of Present Illness Reason for Visit: ALOC History of Present Illness Lisandra Gandara is a 64-year-old female with past medical history of diabetes type 2, CKD, UTI, colon cancer, , colostomy, and urostomy who presents to the ED with ALOC. Per reports patient's reported that she became altered while at home. Upon examination patient has a right NG tube. Per nurse states that she is unable to swallow. Called the patient's contact and unsuccessful as it went straight to voicemail. Renal/: Chronic renal insuff, UTI Endocrine: Diabetes Past Medical History Colon cancer Past Surgical History: , Other (Colostomy and urostomy) Review of Systems Neurological: Confusion Allergies: Coded Allergies: Codeine (Verified Allergy, Unknown, 08/04/23) Medications Current Medications Medications Dose Ordered Sig/Cecily Route Start Time Stop Time Status Last Admin Dose Admin Lactulose 30 ml TID PO 09/12/24 14:00 UNV Sodium Chloride 1,000 ml @ 125 mls/hr Q8H IV 09/12/24 11:15 UNV Ondansetron HCl 4 mg Q4HP PRN IV 09/12/24 11:15 UNV Acetaminophen 650 mg Q6HP PRN PO 09/12/24 11:15 UNV Metronidazole 100 ml @ 100 mls/hr Q8HR IV 09/12/24 14:00 UNV Ceftriaxone Sodium 50 ml @ 100 mls/hr DAILY@09 IV 09/12/24 11:15 UNV Diagnostic Test (Pha) 1 strip Q6HR 09/12/24 12:00 UNV Insulin Human Regular Q6HR SC 09/12/24 12:00 UNV Dextrose 50 ml UD PRN IV 09/12/24 11:15 UNV Ergocalciferol 50,000 unit QWEEKLY PO 09/12/24 11:15 UNV Exam Vital Signs Vital Signs Date Time Temp Pulse Resp B/P (MAP) Pulse Ox O2 Delivery O2 Flow Rate FiO2 09/12/24 11:00 93 14 135/60 (85) 99 09/12/24 09:30 Room Air* 0 21 09/12/24 09:30 98.7 98.7 General Appearance: Cooperative HEENT: Atraumatic Respiratory: Clear to auscultation, Normal air movement Cardiovascular: Normal S1, Normal S2 Abdominal: Soft, Other (Has colostomy and urostomy present) Extremities: Normal pulses, Other (Generalized bruising) Neuro: Sensation intact Labs/Xrays Labs Test 09/12/24 10:19 09/12/24 09:08 09/12/24 08:21 09/12/24 07:38 Range/Units Lactic Acid Level 2.4 *H 0.4-2.0 mmol/L Sodium Level 150 H 136-145 mmol/L Potassium Level 3.6 3.5-5.1 mmol/L Chloride Level 127 H 98-107 mmol/L Carbon Dioxide Level < 10 *L 20-31 mmol/L Anion Gap 13.10593 5-15 Blood Urea Nitrogen 28 H 9-23 mg/dL Creatinine 2.28 H 0.550-1.02 mg/dL Glomerular Filtration Rate Calc 23 >90 mL/min BUN/Creatinine Ratio 12.3 10.0-20.0 Serum Glucose 133 H 74-106 mg/dL Calcium Level 10.3 8.7-10.4 mg/dL Total Bilirubin 1.7 H 0.2-1.0 mg/dL Aspartate Amino Transferase (AST) 34 <34 U/L Alanine Aminotransferase (ALT) 20 7-40 U/L Alkaline Phosphatase 97 46-116 U/L Total Protein 6.9 5.7-8.2 g/dL Albumin 3.6 3.2-4.8 g/dL White Blood Count 5.9 4.4-10.8 10^3/uL Red Blood Count 3.69 L 4.0-5.20 10^6/uL Hemoglobin 11.6 L 12.2-16.2 g/dL Hematocrit 35.8 L 36.0-46.0 % Mean Corpuscular Volume 96.9 80.0-100.0 fL Mean Corpuscular Hemoglobin 31.5 28.0-32.0 pg Mean Corpuscular Hemoglobin Concent 32.5 32.0-36.0 g/dL Red Cell Distribution Width 16.2 H 11.8-14.3 % Platelet Count 57 L 140-450 10^3/uL Mean Platelet Volume 8.4 6.9-10.8 fL Neutrophils (%) (Auto) 68.5 37.0-80.0 % Lymphocytes (%) (Auto) 24.6 10.0-50.0 % Monocytes (%) (Auto) 5.2 0.0-12.0 % Eosinophils (%) (Auto) 1.1 0.0-7.0 % Basophils (%) (Auto) 0.6 0.0-2.0 % Neutrophils # (Auto) 4.0 1.6-8.6 10 ^3/uL Lymphocytes # (Auto) 1.4 0.4-5.4 10 ^3/uL Monocytes # (Auto) 0.3 0-1.3 10 ^3/uL Eosinophils # (Auto) 0.1 0-0.8 10 ^3/uL Basophils # (Auto) 0 0-0.2 10 ^3/uL Nucleated Red Blood Cells 0.4 % Ammonia 193 *H 11-32 umol/L Troponin I High Sensitivity 9 </=34 ng/L POC Glucose 122 H 70-106 mg/dl AP portable chest CLINICAL INDICATION: NG placement FINDINGS: Heart size is normal. No infiltrates or effusions. No bony thoracic abnormalities. NG tube tip in the stomach IMPRESSION: 1. NG tube tip in the stomach. EXAM: CT HEAD WITHOUT CONTRAST INDICATION: altered TECHNIQUE: CT of the head without intravenous contrast. Radiation Dose : 1. Head: CT Dose: CTDI volume is 50.87 mGy. Dose-length product is 900.9 mGy*cm The dose indicators for CT are the volume Computed Tomography (CT) Dose Index (CTDIvol) and the Dose Length Product (DLP), and are measured in units of mGy an d mGy-cm, respectively. These indicators are not patient dose, but values generated from the CT scanner acquisition factors. The report includes radiation exposure data for exposures received during this examination. COMPARISON: CT HEAD WITHOUT CONTRAST on DOS: 04/12/24, CT HEAD WITHOUT CONTRAST on DOS: 10/23/23, CT HEAD WITHOUT CONTRAST on DOS: 10/09/23 FINDINGS: There is no evidence of acute intracranial hemorrhage, extra-axial collection, mass effect, midline shift, herniation or hydrocephalus. The ventricles, sulci and cisterns are age appropriate. The garcia-white differentiation is intact. Patchy periventricular and subcortical white matter hypoattenuation is nonspecific but may be related to small vessel ischemic disease. The visualized paranasal sinuses and mastoid air cells are clear. The surrounding soft tissues and osseous structures are unremarkable. IMPRESSION: No acute intracranial abnormality. CHEST RADIOGRAPH Indication: sob Technique: Single frontal view of the chest was obtained COMPARISON: XY CHEST PORTABLE on DOS: 04/13/24, XY CHEST PORTABLE on DOS: 12/08/23, XY CHEST PORTABLE on DOS: 12/05/23, XY CHEST PORTABLE on DOS: 10/25/23, XY CHEST XRAY 1 VIEW on DOS: 10/24/23 FINDINGS: Lines and Tubes: None Lungs: Clear Pleura: No effusion. No pneumothorax. Cardiomediastinal contours: Unremarkable Bones: Unremarkable IMPRESSION: No acute disease. Assessment/Plan Assessment/Plan Assessment Acute metabolic encephalopathy UTI Anemia Thrombocytopenia Hyponatremia Hyperammonemia Hyperbilirubinemia Acute on chronic kidney disease Lactic acidosis rule out sepsis History of diabetes type 2 History of UTI History of colon cancer History of History of colostomy History of urostomy Plan [facility] antibiotics-ceftriaxone + Flagyl Zosyn given in ED NS 2 L given in ED Rifaximin EKG Ammonia levels UA Chest x-ray noted Troponin noted Lactic level Blood cultures CT head noted Lactulose IV fluids half NS Urine culture ESR CRP TSH Vitamin B12 Vitamin-D 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 NPO except meds via NG tube Home medications reconciled DVT prophylaxis-SCDs as patient is thrombocytopenic PUD prophylaxis-PPIs Discussed plan of care with patient's spouse and nurse Consider nephrology consult Plan discussed with: Spouse My Orders Orders - NENA HODGSON TIE FASTENER Procedure Category Date Status Time Straightcath If ORDERS 09/12/24 Transmitted Unable To Void 11:01 Lactulose Oral PHA 09/12/24 Logged 14:00 Sod Chl 0.45% (Sodium PHA 09/12/24 Logged Chloride 0.45% Via 11:15 Admit ADMIT 09/12/24 Transmitted 11:01 Allergies ISABELA 09/12/24 In Process 11:01 Code Status CODE 09/12/24 Transmitted 11:01 Ondansetron Hcl PHA 09/12/24 Logged (Zofran) 11:15 Complete Blood Count LAB 09/13/24 Verified 04:00 Comprehensive LAB 09/13/24 Verified Metabolic Panel 04:00 Npo (Nothing By DIET 09/12/24 Transmitted Mouth) Diet Lunch Acetaminophen Tablet PHA 09/12/24 Logged (Tylenol Tablet) 11:15 Sequential ISABELA 09/12/24 In Process Compression Device Metronidazole PHA 09/12/24 Logged 500mg/100ml (Flagyl 14:00 Ceftriaxone 1gm/50ml PHA 09/12/24 Logged D5w (Rocephin) 11:15 Urinalysis LAB 09/12/24 Logged 11:01 Urine Bacterial MAVERICK 09/12/24 Logged Culture 11:01 Erythrocyte LAB 09/12/24 Logged Sedimentation Rate 11:01 C-Reactive Protein LAB 09/12/24 Logged 11:01 * Gi Dvh Dairy Farmer CONS 09/12/24 Transmitted 11:[address] 09/12/24 Logged 11:01 Glucose Blood PHA 09/12/24 Logged (Accu-Chek Comfort 12:00 Insulin R (Human) PHA 09/12/24 Logged (Insulin R) 12:00 Dextrose 50% Syringe PHA 09/12/24 Logged 11:15 Hemoglobin A1c LAB 09/12/24 Logged 11:09 Ergocalciferol PHA 09/12/24 Transmitted (Vitamin D 50,000 11:15 (Nf) Ferrous Sulfate PHA 09/13/24 Transmitted (Ferosul) 10:00 (Nf) Omeprazole PHA 09/13/24 Transmitted (Omeprazole Dr) 10:00 Rifaximin (Xifaxan) PHA 09/12/24 Verified 22:00 Date of Service: Sep 12, 2024 Billing Provider: NENA HODGSON Common Visit Codes: [id number] INP/OBS CARE (HIGH) NENA HODGSON Sep 12, 2024 11:27
[2024-09-12] MEDS: ACCU-CHEK COMFORT CURVE STRIP VI SCH (12:18)
[2024-09-12] MEDS: InsuLIN REG 1unit/0.01ml Soln (100units/ml) SC SCH (12:19)
[2024-09-12] MEDS: SOD CHL 0.45% 1,000 ML IV SCH (12:19)
[2024-09-12 12:52] LABS: Urine Protein, UAD 1+ (Negative); Urine WBC Clumps PRESENT /hpf (None Seen)
[2024-09-12] MEDS: cefTRIAXone 1GM/50ML D5W 50 ML IV SCH (12:55)
[2024-09-12] MEDS: LACTULOSE 20Gm/30ML SOLN PO SCH (14:16)
[2024-09-12 19:25] VITALS: PULSE 89; RESP 16; O2SAT 98
[2024-09-13 04:31] LABS: Hemoglobin 10.9 g/dL (12.2-16.2); Mean Corpuscular Volume 95.8 fL (80.0-100.0); Nucleated Red Blood Cells % 0.3 %
[2024-09-13 04:33] LABS: Hematocrit 32.6 % (36.0-46.0); Mean Corpuscular Hemoglobin 32.1 pg (28.0-32.0)
[2024-09-13 04:57] LABS: Alanine Aminotransferase 26 U/L (7-40); Alkaline Phosphatase 90 U/L (46-116); Anion Gap 12.00001 (5-15); BUN/Creatinine Ratio 16.6 (10.0-20.0); Calcium 9.0 mg/dL (8.7-10.4); Glucose 94 mg/dL (74-106); Total Protein 6.3 g/dL (5.7-8.2)
[2024-09-13 04:58] LABS: Albumin 3.4 g/dL (3.2-4.8); Bilirubin, Total 1.2 mg/dL (0.2-1.0)
[2024-09-13 05:11] LABS: Blood Urea Nitrogen 37 mg/dL (9-23); Chloride 130 mmol/L (98-107); Potassium 3.4 mmol/L (3.5-5.1); Sodium 152 mmol/L (136-145)
[2024-09-13 05:12] LABS: Carbon Dioxide < 10 mmol/L (20-31)
[2024-09-13] MEDS: FERROUS SULFATE 325mg EC TAB PO SCH (10:00)
[2024-09-13] MEDS: OMEPRAZOLE-SOD BICARB 20 MG POWDER PO SCH (11:26)
--- NOTE | 2024-09-13 13:03 | DVHINCON2 ---
GI Consult Consult Note GI consult note Date of Consultation: 09/14/2023 Chief Complaint: Elevated bilirubin, elevated ammonia Referring Physician: Fracisco ACUNA H&P: 64-year-old female brought into ER because of altered level of consciousness with the . Patient is a poor historian. No family at bedside. History from chart and RN. Patient has history of liver cirrhosis. No nausea or vomiting. No hematemesis noted. Also noted on chart is history of colon cancer Past Medical History: Cancer, CKF, DM, UTI'S Past Surgical History: Social History: NO smoking, drinking ETOH and use of illegal drugs. Family History: Unknown per chart Review of Systems: As above Physical exam: General: Resting in bed. Opens her eyes Chest: lung rahman clear to auscultation Heart: RRR, no murmur Abdomen: non-distended, no tenderness to palpation, +BS Labs: Labs Test 09/12/24 10:19 09/12/24 09:08 09/12/24 08:21 09/12/24 07:38 Range/Units Lactic Acid Level 2.4 *H 0.4-2.0 mmol/L Sodium Level 150 H 136-145 mmol/L Potassium Level 3.6 3.5-5.1 mmol/L Chloride Level 127 H 98-107 mmol/L Carbon Dioxide Level < 10 *L 20-31 mmol/L Anion Gap 13.62178 5-15 Blood Urea Nitrogen 28 H 9-23 mg/dL Creatinine 2.28 H 0.550-1.02 mg/dL Glomerular Filtration Rate Calc 23 >90 mL/min BUN/Creatinine Ratio 12.3 10.0-20.0 Serum Glucose 133 H 74-106 mg/dL Calcium Level 10.3 8.7-10.4 mg/dL Total Bilirubin 1.7 H 0.2-1.0 mg/dL Aspartate Amino Transferase (AST) 34 <34 U/L Alanine Aminotransferase (ALT) 20 7-40 U/L Alkaline Phosphatase 97 46-116 U/L Total Protein 6.9 5.7-8.2 g/dL Albumin 3.6 3.2-4.8 g/dL White Blood Count 5.9 4.4-10.8 10^3/uL Red Blood Count 3.69 L 4.0-5.20 10^6/uL Hemoglobin 11.6 L 12.2-16.2 g/dL Hematocrit 35.8 L 36.0-46.0 % Mean Corpuscular Volume 96.9 80.0-100.0 fL Mean Corpuscular Hemoglobin 31.5 28.0-32.0 pg Mean Corpuscular Hemoglobin Concent 32.5 32.0-36.0 g/dL Red Cell Distribution Width 16.2 H 11.8-14.3 % Platelet Count 57 L 140-450 10^3/uL Mean Platelet Volume 8.4 6.9-10.8 fL Neutrophils (%) (Auto) 68.5 37.0-80.0 % Lymphocytes (%) (Auto) 24.6 10.0-50.0 % Monocytes (%) (Auto) 5.2 0.0-12.0 % Eosinophils (%) (Auto) 1.1 0.0-7.0 % Basophils (%) (Auto) 0.6 0.0-2.0 % Neutrophils # (Auto) 4.0 1.6-8.6 10 ^3/uL Lymphocytes # (Auto) 1.4 0.4-5.4 10 ^3/uL Monocytes # (Auto) 0.3 0-1.3 10 ^3/uL Eosinophils # (Auto) 0.1 0-0.8 10 ^3/uL Basophils # (Auto) 0 0-0.2 10 ^3/uL Nucleated Red Blood Cells 0.4 % Ammonia 193 *H 11-32 umol/L Troponin I High Sensitivity 9 </=34 ng/L POC Glucose 122 H 70-106 mg/dl Imaging: Assessment: Acute metabolic encephalopathy Anemia Thrombocytopenia History of colon cancer History of liver cirrhosis Plan: Discussed with Dr. Trammell CT abdomen and pelvis for history of colon cancer Liver ultrasound history of liver cirrhosis Monitor labs Continue lactulose PT INR and hepatitis panel We will continue to follow patient Plan discussed with RN Thank you for this consult Date of Service: Sep 13, 2024 Billing Provider: JOI COMER Common Visit Codes: CONSULT ONLY Consultation Codes: [id number] CONSULT <60MIN JOI COMER Sep 13, 2024 13:02
--- NOTE | 2024-09-13 14:17 | DVHPN2 ---
Reviewed: Care Plan, H&P, Labs, Medications, Previous Orders, Radiology Changes from previous H/P or p: No Changes Objective Vitals Vital Signs Date Time Temp Pulse Resp B/P (MAP) Pulse Ox O2 Delivery O2 Flow Rate FiO2 09/13/24 12:00 95 16 143/68 (93) 99 09/13/24 08:00 97.4 97.4 09/12/24 19:25 Room Air* 0 21 Intake/Output Intake and Output 09/13/24 07:00 Intake Total 2100 ml Balance 2100 ml Intake IV Total 2100 ml Medications Current Medications Medications Dose Ordered Sig/Cecily Route Start Time Stop Time Status Last Admin Dose Admin Lactulose 30 ml TID PO 09/12/24 14:00 09/13/24 14:10 30 ML Sodium Chloride 1,000 ml @ 125 mls/hr Q8H IV 09/12/24 11:15 09/13/24 11:53 125 MLS/HR Ondansetron HCl 4 mg Q4HP PRN IV 09/12/24 11:15 Acetaminophen 650 mg Q6HP PRN PO 09/12/24 11:15 Metronidazole 100 ml @ 100 mls/hr Q8HR IV 09/12/24 14:00 09/13/24 14:10 100 MLS/HR Ceftriaxone Sodium 50 ml @ 100 mls/hr DAILY@09 IV 09/12/24 11:15 09/13/24 09:28 100 MLS/HR Diagnostic Test (Pha) 1 strip Q6HR 09/12/24 12:00 09/13/24 12:23 1 STRIP Insulin Human Regular Q6HR SC 09/12/24 12:00 09/12/24 12:19 2 UNITS Dextrose 50 ml UD PRN IV 09/12/24 11:15 Ergocalciferol 50,000 unit QWEEKLY PO 09/12/24 11:15 Ferrous Sulfate 325 mg DAILY PO 09/13/24 10:00 Omeprazole 20 mg DAILY PO 09/13/24 10:00 09/13/24 11:26 20 MG Rifaximin 550 mg BID PO 09/12/24 22:00 09/13/24 11:04 550 MG Laboratory Results Laboratory Tests 09/13/24 04:18 Chemistry Test 09/13/24 04:18 Albumin 3.4 g/dL (3.2-4.8) Calcium Level 9.0 mg/dL (8.7-10.4) Total Protein 6.3 g/dL (5.7-8.2) Coagulation Test 09/13/24 14:02 Prothrombin Time Pending Prothrombin Time INR Pending LFT Test 09/13/24 04:18 Alanine Aminotransferase (ALT) 26 U/L (7-40) Alkaline Phosphatase 90 U/L (46-116) Aspartate Amino Transferase (AST) 38 U/L (<34) H Total Bilirubin 1.2 mg/dL (0.2-1.0) H Urinalysis Test 09/12/24 11:32 Urine Color Light-yellow (Yellow) Urine Clarity Cloudy (Clear) H Urine pH 6.0 (5.0-9.0) Urine Specific [place] 1.011 (1.001-1.035) Urine Protein 1+ (Negative) H Urine Ketones Negative (Negative) Urine Blood 1+ /uL (Negative) H Urine Nitrite Negative (Negative) Urine Bilirubin Negative (Negative) Urine Urobilinogen Normal mg/dL (Negative) Urine Leukocyte Esterase 3+ /uL (Negative) Urine RBC 18 /hpf (0 - 4) Urine WBC Clumps Present /hpf (None Seen) Urine Microscopic WBC 990 /HPF (0-5) H Urine Squamous Epithelial Cells Few /hpf (<5) Urine Bacteria Few /hpf (None Seen) H Urine Glucose Normal mg/dL (Normal) Microbiology Microbiology Date/Time Source Procedure Growth Status 09/12/24 11:32 Voided Urine Urine Culture - Preliminary Resulted 09/12/24 08:21 Blood Blood Culture - Preliminary NO GROWTH AFTER 24 HOURS OF INCUBATION. Resulted Labs and/or images reviewed: Labs reviewed by me, Image(s) reviewed by me Assessment/Plan Assessment/Plan Acute metabolic encephalopathy Acute hepatic encephalopathy UTI: Urine cultures Rocephin Acute hyperammonemia with ammonia 175: Lactulose Anemia Thrombocytopenia Hyponatremia Hyperbilirubinemia Acute on chronic kidney disease Lactic acidosis rule out sepsis Diabetes type 2 History of colostomy History of urostomy History of colon cancer Time spent 70 minutes Advanced care planning time 20 minutes Patient is full code Condition guarded Plan discussed with: Patient Date of Service: Sep 13, 2024 Billing Provider: CLAUDIA COMER MD Common Visit Codes: [id number] CARE 30-74 MIN CLAUDIA COMER MD Sep 13, 2024 14:17
[2024-09-13 14:26] LABS: INR 1.28 (0.9-1.15); Prothrombin Time 13.2 sec (9.3-11.8)
--- NOTE | 2024-09-13 14:29 | DVH ---
INDICATION: elevated LFTs TECHNIQUE: Multiple real-time sonographic images were obtained of the right upper quadrant. COMPARISON: CT 09/13/2024 FINDINGS: The liver demonstrates homogenous echotexture without focal mass lesions. The liver measure s 15 cm. There is no intrahepatic or extrahepatic ductal dilatation. The common duct measures 5 mm. Gallstone measuring 1.7 cm. Masslike area in the gallbladder measuring 5 cm. The gallbladder wall phillip sures 3 mm and is within normal limits. The right kidney measures 9.2 cm. The right kidney is normal in contour, size, and shape. The echoge nicity is normal. Mild right hydronephrosis. The pancreas is not well visualized due to overlying bowel gas. IMPRESSION: Cholelithiasis. Masslike area in the gallbladder measuring 5 cm. Recommend further evaluation with CT abdomen pelvis with contrast given limited evaluation on noncontrast same day CT. Mild right hydronephrosis.
[2024-09-13 15:25] LABS: Hepatitis A Total Antibody Positive (Negative); Hepatitis B Surface Antigen Negative (Negative); Hepatitis C Antibody Negative (Negative)
--- NOTE | 2024-09-13 16:16 | DVH ---
EXAM: CT Abdomen and Pelvis Without Intravenous Contrast CLINICAL INDICATION: history colon cancer TECHNIQUE: Axial computed tomography images of the abdomen and pelvis without intravenous contrast. This CT exam was performed using one or more of the following dose reduction techniques: automated exposure control, adjustment of the mA and/or kV according to patient size, and/or use of iterative r econstruction technique. CONTRAST: RADIATION DOSE: CTDIvol = 8.07 mGy, DLP = 436.03 mGy-cm COMPARISON: No relevant prior studies available. FINDINGS: ARTIFACTS: Motion artifact. LUNG BASES: Partially visualized lung emphysema/COPD. No consolidation. ABDOMEN: LIVER: Hepatomegaly with fatty infiltration. GALLBLADDER AND BILE DUCTS: Cholelithiasis. No ductal dilation. PANCREAS: Unremarkable. No ductal dilation. SPLEEN: Mild splenomegaly. ADRENALS: Unremarkable. No mass. KIDNEYS AND URETERS: Mild bilateral hydroureteronephrosis without obstructing calculus. STOMACH AND BOWEL: Lower midline colostomy. Fecal retention in the colon consistent with constipat ion. No obstruction. No mucosal thickening. PELVIS: APPENDIX: No findings to suggest acute appendicitis. BLADDER: Unremarkable. No stones. REPRODUCTIVE: Unremarkable as visualized. ABDOMEN and PELVIS: INTRAPERITONEAL SPACE: Unremarkable. No free air. No significant fluid collection. BONES/JOINTS: Stable osseous structures. No acute fracture. No dislocation. SOFT TISSUES: Unremarkable. VASCULATURE: Unremarkable. No abdominal aortic aneurysm. LYMPH NODES: Unremarkable. No enlarged lymph nodes. OTHER FINDINGS: Comparison CT CT AB PEL WO CON-NO ORAL OR IV on DOS: 12/05/23, CT CHST AB PEL WO CON -NO IV/ORAL on DOS: 10/09/23, CT CT AB PEL WO CON-NO ORAL OR IV on DOS: 08/03/23. IMPRESSION: 1. Mild bilateral hydroureteronephrosis without obstructing calculus. 2. Cholelithiasis. 3. Hepatomegaly with fatty infiltration. 4. Fecal retention in the colon consistent with constipation. HS:Y
[2024-09-13 20:00] VITALS: PULSE 70; RESP 18; O2SAT 95
[2024-09-13 21:00] VITALS: BP 134/67; PULSE 94; RESP 17; TEMP 97.4; O2SAT 100
[2024-09-14] VITALS (9 sets, daily range): BP systolic 127–137; BP diastolic 60–80; PULSE 65–100; RESP 16–18; TEMP 97–97.8; O2SAT 100
--- NOTE | 2024-09-14 10:52 | DVHPN2 ---
Reviewed: Care Plan, H&P, Labs, Medications, Previous Orders, Radiology Changes from previous H/P or p: No Changes Objective Vitals Vital Signs Date Time Temp Pulse Resp B/P (MAP) Pulse Ox O2 Delivery O2 Flow Rate FiO2 09/14/24 09:00 97.8 89 16 136/80 (98) 100 97.8 09/13/24 20:00 Room Air* 0 21 Intake/Output Intake and Output 09/14/24 07:00 Intake Total 1000 ml Output Total 550 ml Balance 450 ml Intake IV Total 1000 ml Output Urine Total 200 ml Stool Total 350 ml Medications Current Medications Medications Dose Ordered Sig/Cecily Route Start Time Stop Time Status Last Admin Dose Admin Sodium Chloride 1,000 ml @ 125 mls/hr Q8H IV 09/12/24 11:15 09/13/24 11:53 125 MLS/HR Ondansetron HCl 4 mg Q4HP PRN IV 09/12/24 11:15 Acetaminophen 650 mg Q6HP PRN PO 09/12/24 11:15 Metronidazole 100 ml @ 100 mls/hr Q8HR IV 09/12/24 14:00 09/14/24 05:48 100 MLS/HR Ceftriaxone Sodium 50 ml @ 100 mls/hr DAILY@09 IV 09/12/24 11:15 09/13/24 09:28 100 MLS/HR Diagnostic Test (Pha) 1 strip Q6HR 09/12/24 12:00 09/14/24 06:28 1 STRIP Insulin Human Regular Q6HR SC 09/12/24 12:00 09/12/24 12:19 2 UNITS Dextrose 50 ml UD PRN IV 09/12/24 11:15 Ergocalciferol 50,000 unit QWEEKLY PO 09/12/24 11:15 Ferrous Sulfate 325 mg DAILY PO 09/13/24 10:00 Omeprazole 20 mg DAILY PO 09/13/24 10:00 09/13/24 11:26 20 MG Rifaximin 550 mg BID PO 09/12/24 22:00 09/13/24 22:36 550 MG Lactulose 300 ml Q6HR [place] 09/14/24 12:00 Laboratory Results Laboratory Tests 09/13/24 04:18 Coagulation Test 09/13/24 14:02 Prothrombin Time 13.2 sec (9.3-11.8) H Prothrombin Time INR 1.28 (0.9-1.15) H Urinalysis Test 09/12/24 11:32 Urine Color Light-yellow (Yellow) Urine Clarity Cloudy (Clear) H Urine pH 6.0 (5.0-9.0) Urine Specific [place] 1.011 (1.001-1.035) Urine Protein 1+ (Negative) H Urine Ketones Negative (Negative) Urine Blood 1+ /uL (Negative) H Urine Nitrite Negative (Negative) Urine Bilirubin Negative (Negative) Urine Urobilinogen Normal mg/dL (Negative) Urine Leukocyte Esterase 3+ /uL (Negative) Urine RBC 18 /hpf (0 - 4) Urine WBC Clumps Present /hpf (None Seen) Urine Microscopic WBC 990 /HPF (0-5) H Urine Squamous Epithelial Cells Few /hpf (<5) Urine Bacteria Few /hpf (None Seen) H Urine Glucose Normal mg/dL (Normal) Microbiology Microbiology Date/Time Source Procedure Growth Status 09/12/24 11:32 Voided Urine Urine Culture - Preliminary Resulted 09/12/24 08:21 Blood Blood Culture - Preliminary NO GROWTH AFTER 48 HOURS OF INCUBATION. Resulted Labs and/or images reviewed: Labs reviewed by me, Image(s) reviewed by me Assessment/Plan Assessment/Plan Acute metabolic encephalopathy Acute hepatic encephalopathy UTI: Urine cultures Rocephin Acute hyperammonemia with ammonia 175: Lactulose Anemia Thrombocytopenia Hyponatremia Hyperbilirubinemia Acute on chronic kidney disease Lactic acidosis rule out sepsis Diabetes type 2 History of colostomy History of urostomy History of colon cancer Blood cultures negative Urine cultures mixed Time spent 50 minutes Advanced care planning time 20 minutes Patient is full code Condition guarded Plan discussed with: Patient Date of Service: Sep 14, 2024 Billing Provider: CLAUDIA COMER MD Common Visit Codes: [id number] CARE 30-74 MIN CLAUDIA COMER MD Sep 14, 2024 10:52
[2024-09-14] MEDS: LACTULOSE 10g/15ml SOLN 473ML PR SCH (12:00)
[2024-09-14 12:19] LABS: Base Excess -20.2 mmol/L (-2.0-3.0)
[2024-09-14] MEDS ORDERED: SODIUM BICARB 50mEq/50ml Vial 150 ML in D5W 5% 1,000 ML IV SCH (12:30)
--- NOTE | 2024-09-14 12:37 | DVHPN2 ---
Progress Note Date Seen: Sep 14, 2024 Resident Creating Document: MARTINE LOUIS Medical Necessity Reason Pt with a Central, PICC or Fol: No Subjective Review of Systems Patient is seen today at bedside Patient is a poor historian Patient with confusion H&H stable Persistently elevated ammonia level Blood culture no growth so far Patient has urostomy bag and colostomy bag Patient is on omeprazole, lactulose and rifaximin On IV antibiotic ceftriaxone metronidazole CT abdomen and pelvis revealed- Mild bilateral hydroureteronephrosis without obstructing calculus. Cholelithiasis. Hepatomegaly with fatty infiltration. Fecal retention in the colon consistent with constipation. Ultrasound of the liver revealed- Cholelithiasis. Masslike area in the gallbladder measuring 5 cm. Recommend further evaluation with CT abdomen pelvis with contrast given limited evaluation on noncontrast same day CT. Mild right hydronephrosis. Objective vital signs Vital Sign Date Time Temp Pulse Resp B/P (MAP) Pulse Ox O2 Delivery O2 Flow Rate FiO2 09/14/24 09:00 97.8 89 16 136/80 (98) 100 97.8 09/13/24 20:00 Room Air* 0 21 Total Intake and Output 09/13/24 09/13/24 09/14/24 15:00 23:00 07:00 Intake Total 525 ml 475 ml Output Total 550 ml Balance 525 ml 475 ml -550 ml medications Current Medications Medications Dose Ordered Sig/Cecily Route Start Time Stop Time Status Last Admin Dose Admin Sodium Chloride 1,000 ml @ 125 mls/hr Q8H IV 09/12/24 11:15 09/13/24 11:53 125 MLS/HR Ondansetron HCl 4 mg Q4HP PRN IV 09/12/24 11:15 Acetaminophen 650 mg Q6HP PRN PO 09/12/24 11:15 Metronidazole 100 ml @ 100 mls/hr Q8HR IV 09/12/24 14:00 09/14/24 05:48 100 MLS/HR Ceftriaxone Sodium 50 ml @ 100 mls/hr DAILY@09 IV 09/12/24 11:15 09/14/24 10:53 100 MLS/HR Diagnostic Test (Pha) 1 strip Q6HR 09/12/24 12:00 09/14/24 06:28 1 STRIP Insulin Human Regular Q6HR SC 09/12/24 12:00 09/12/24 12:19 2 UNITS Dextrose 50 ml UD PRN IV 09/12/24 11:15 Ergocalciferol 50,000 unit QWEEKLY PO 09/12/24 11:15 Ferrous Sulfate 325 mg DAILY PO 09/13/24 10:00 09/14/24 10:52 325 MG Omeprazole 20 mg DAILY PO 09/13/24 10:00 09/14/24 10:53 20 MG Rifaximin 550 mg BID PO 09/12/24 22:00 09/14/24 10:52 550 MG Lactulose 300 ml Q6HR AL 09/14/24 12:00 laboratory and microbiology Laboratory Tests 09/13/24 04:18 Test 09/13/24 04:18 Range/Units Serum Glucose 94 74-106 mg/dL Microbiology Date/Time Source Procedure Growth Status 09/12/24 11:32 Voided Urine Urine Culture - Preliminary Resulted 09/12/24 08:21 Blood Blood Culture - Preliminary NO GROWTH AFTER 48 HOURS OF INCUBATION. Resulted Problem List/Assessment/Plan Problem List/Assessment/Plan Assessment and plan Metabolic/hepatic encephalopathy LU likely due to VMN Cholelithiasis, rule out acute cholecystitis Lactic Acidosis UTI Thrombocytopenia Events Patient is a poor historian Patient with confusion H&H stable Persistently elevated ammonia level Blood culture no growth so far Patient has urostomy bag and colostomy bag Patient is on omeprazole, lactulose and rifaximin On IV antibiotic ceftriaxone metronidazole CT abdomen and pelvis revealed- Mild bilateral hydroureteronephrosis without obstructing calculus. Cholelithiasis. Hepatomegaly with fatty infiltration. Fecal retention in the colon consistent with constipation. Ultrasound of the liver revealed- Cholelithiasis. Masslike area in the gallbladder measuring 5 cm. Recommend further evaluation with CT abdomen pelvis with contrast given limited evaluation on noncontrast same day CT. Mild right hydronephrosis. Plan Continue lactulose and pantoprazole Continue rifaximin Continue IV antibiotic Recommending surgery consult for cholelithiasis, to rule out acute cholecystitis Recommending nephrology consultation for LU Avoid dehydration and constipation Other care as per primary team Monitor CBC, CMP, INR Plan discussed with Dr. Ailyn Trammell , nursing staff, Total time spent on patient evaluation, chart review, assessment and plan, discussion discussion >35 minutes Plan discussed with: Other (RN) MARTINE LOUIS RESIDENT Sep 14, 2024 12:37
[2024-09-14] MEDS: SODIUM BICARB 8.4% 50Meq/50ml SYR Vial IV ONE (13:04)
[2024-09-14] MEDS: POTASSIUM CHL 20MEQ/100ML 100 ML IV SCH ×2 (13:05→20:36)
[2024-09-14] MEDS: LACTULOSE 20Gm/30ML SOLN NG ONE (13:05)
[2024-09-14 14:56] LABS: Anion Gap 18 (5-15)
[2024-09-14 14:57] LABS: Calcium 9.4 mg/dL (8.7-10.4)
[2024-09-14 15:02] LABS: BUN/Creatinine Ratio 17.4 (10.0-20.0); Glucose 89 mg/dL (74-106)
[2024-09-14 15:13] LABS: Carbon Dioxide 10 mmol/L (20-31); Chloride 133 mmol/L (98-107); Potassium 2.9 mmol/L (3.5-5.1)
[2024-09-14 15:14] LABS: Blood Urea Nitrogen 41 mg/dL (9-23)
[2024-09-14 15:18] LABS: Sodium 161 mmol/L (136-145)
[2024-09-14] MEDS: SODIUM BICARB 50mEq/50ml Vial 150 ML in D5W 5% 1,000 ML IV SCH (17:30)
[2024-09-14] MEDS: D5W 5% 1,000 ML IV SCH (17:30)
--- NOTE | 2024-09-14 18:00 | DVHINCON2 ---
Date of service: Sep 14, 2024 Referring Physician Reason for Consultation LU History of Present Illness 64 years old female with past medical history of Chronic kidney disease, diabetes, colon cancer status post colostomy, urostomy, cirrhosis, presented with chief complaints of altered mental status Patient is currently altered HPI obtained from the chart she has an NG tube She opens her eyes but unable to answer any questions Her ammonia level is very high Baseline creatinine in March is 1.38 with GFR 42 Past Medical History As per HPI Past Surgical History As per HPI Allergies: Coded Allergies: Codeine (Verified Allergy, Unknown, 08/04/23) Home Meds Active Scripts Rifaximin (Xifaxan) 550 Mg Tab, 1 TAB PO BID for 30 Days, #60 TAB Prov:GAYATRI DODGE NP 04/16/24 Potassium Chloride (Klor-Con 8) 8 Meq Tab, 8 MEQ PO EOD for 20 Days, #20 TAB Prov:GAYATRI DODGE NP 04/16/24 Lactulose (Lactulose) 10 Gm/15 Ml Rita, 10 GM PO TID for 30 Days, #120 ML 3 Refills Prov:GAYATRI DODGE NP 12/18/23 Rifaximin (Xifaxan) 550 Mg Tab, 550 MG PO BID for 30 Days, #60 TAB 2 Refills Prov:GAYATRI DODGE NP 12/18/23 Pantoprazole Sodium Sesquihydr (Pantoprazole Sodium) 40 Mg Tab, 40 MG PO DAILY@0600 for 30 Days, #30 TAB 2 Refills Prov:KODAK TORRE MD 11/01/23 Spironolactone (Aldactone) 25 Mg Tab, 25 MG PO DAILY for 30 Days, #30 TAB 3 Refills Prov:KODAK TORRE MD 11/01/23 Potassium Chloride (Potassium Chloride ER) 20 Meq Tab, 1 TAB PO BID for 90 Days, #180 TAB Prov:OJ LYNCH 10/12/23 Lactulose (Lactulose) 10 Gm/15 Ml Rita, 30 ML PO TID for 90 Days, #5 ML 5 Refills Prov:OJ LYNCH RESIDENT 10/12/23 Reported Medications Spironolactone (Spironolactone) 25 Mg Tab, 1 TAB PO DAILY 09/12/24 Ergocalciferol (Vitamin D) 50,000 Unit Cap, 1 CAP PO QWEEKLY 10/10/23 Omeprazole (Omeprazole Dr) 20 Mg Cap, 1 CAP PO DAILY 10/10/23 Ferrous Sulfate (Ferosul) 325 Mg Tab, 1 TAB PO DAILY 10/10/23 Insulin Glargine (Basaglar Kwikpen) 100 Unit/Ml Inj, SC 10/10/23 Sertraline Hcl (Sertraline Hcl) 100 Mg Tab, 1 TAB PO DAILY 10/10/23 Hydrocortone (Hydrocortisone 2.5%) 1 Applic Ap, TOP 10/10/23 Current Medications Current Medications Medications (Trade) Dose Ordered Sig/Cecily Route PRN Reason Start Time Stop Time Status Last Admin Lactulose 300 ml Q6HR MN 09/14/24 12:00 09/14/24 12:00 Sodium Bicarbonate 150 ml/Dextrose 1,150 ml @ 100 mls/hr [id number] IV 09/14/24 12:30 09/14/24 17:30 DC Potassium Chloride 100 ml @ 50 mls/hr Q2H IV 09/14/24 12:30 09/14/24 16:29 DC 09/14/24 13:05 Pantoprazole Sodium (Protonix Tablet) 40 mg DAILY PO 09/15/24 10:00 Sodium Bicarbonate 150 ml/Dextrose 1,150 ml @ 50 mls/hr Q23H IV 09/14/24 17:30 UNV Dextrose 1,000 ml @ 75 mls/hr [id number] IV 09/14/24 17:30 UNV Potassium Chloride 100 ml @ 50 mls/hr Q2H IV 09/14/24 17:30 09/14/24 21:29 UNV Family History: Diabetes mellitus G8 MOTHER G8 FATHER Social History Unable to obtain Review of Systems Unable to obtain H&P Exam Vital Signs/I&O Vital Sign Date Time Temp Pulse Resp B/P (MAP) Pulse Ox O2 Delivery O2 Flow Rate FiO2 09/14/24 16:48 97.4 100 16 135/66 (89) 100 97.4 09/13/24 20:00 Room Air* 0 21 Intake and Output 09/13/24 09/14/24 19:00 07:00 Intake Total 1000 ml Output Total 550 ml Balance 1000 ml -550 ml IV Total 1000 ml Output Urine Total 200 ml Stool Total 350 ml Physical Exam Patient is awake but not alert or oriented She has NG tube Abdominal distention No pedal edema Fair bilateral air entry Labs/Diagnostic Data Labs/Diagnostic Data Laboratory Tests Test 09/14/24 14:34 09/14/24 12:05 09/14/24 05:24 09/14/24 05:02 Range/Units Sodium Level 161 #*H 136-145 mmol/L Potassium Level 2.9 L 3.5-5.1 mmol/L Chloride Level 133 H 98-107 mmol/L Carbon Dioxide Level 10 L 20-31 mmol/L Anion Gap 18 H 5-15 Blood Urea Nitrogen 41 H 9-23 mg/dL Creatinine 2.36 H 0.550-1.02 mg/dL Glomerular Filtration Rate Calc 22 >90 mL/min BUN/Creatinine Ratio 17.4 10.0-20.0 Serum Glucose 89 74-106 mg/dL Calcium Level 9.4 8.7-10.4 mg/dL Ammonia 151 *H 173 *H 11-32 umol/L Blood Gas Specimen Type Arterial Blood Gas Sample Site Right radial Blood Gas Patient Temperature 37.0 Arterial Blood Date Drawn [id number] Arterial Blood pH 7.179 *L 7.350-7.450 Arterial Blood Partial Pressure CO2 16.6 *L 32.0-45.0 mmHg Arterial Blood Partial Pressure O2 110.5 H 83.0-108.0 mmHg Arterial Blood HCO3 6.0 L 21.0-28.0 mmol/L Arterial Blood Oxygen Saturation 96.9 94.0-98.0 % Arterial Blood Base Excess -20.2 L -2.0-3.0 mmol/L Arterial Blood Oxyhemoglobin 95.9 94.0-98.0 % Arterial Blood Carboxyhemoglobin 0.3 L 0.5-1.5 % Arterial Blood Methemoglobin 0.7 0.0-1.5 % Tam Test Yes Blood Gas Total Hemoglobin 11.00 L 12.0-16.0 g/dL Blood Gas Modality Room air FiO2 % 21.0 Blood Gas Critical Value Read Back Yes Blood Gas Notified Whom eveline Brooke md Blood Gas Notified Time [id number] Blood Gas Notified By Reaming Machine Tender [place] POC Glucose 85 70-106 mg/dl Test 09/14/24 01:05 09/13/24 18:06 09/13/24 14:02 09/13/24 12:22 Range/Units POC Glucose 78 97 93 70-106 mg/dl Prothrombin Time 13.2 H 9.3-11.8 sec Prothrombin Time INR 1.28 H 0.9-1.15 Hepatitis A Antibody Total Positive H Negative Hepatitis B Surface Antigen Negative Negative Hepatitis B Surface Antibody Negative Negative Hepatitis B Core Total Antibody Negative Negative Hepatitis C Antibody Negative Negative Test 09/13/24 06:14 09/13/24 04:18 09/13/24 02:03 09/12/24 18:09 Range/Units POC Glucose 87 94 84 70-106 mg/dl White Blood Count 4.2 #L 4.4-10.8 10^3/uL Red Blood Count 3.40 L 4.0-5.20 10^6/uL Hemoglobin 10.9 L 12.2-16.2 g/dL Hematocrit 32.6 L 36.0-46.0 % Mean Corpuscular Volume 95.8 80.0-100.0 fL Mean Corpuscular Hemoglobin 32.1 H 28.0-32.0 pg Mean Corpuscular Hemoglobin Concent 33.5 32.0-36.0 g/dL Red Cell Distribution Width 15.7 H 11.8-14.3 % Platelet Count 62 L 140-450 10^3/uL Mean Platelet Volume 8.7 6.9-10.8 fL Neutrophils (%) (Auto) 76.7 37.0-80.0 % Lymphocytes (%) (Auto) 15.9 10.0-50.0 % Monocytes (%) (Auto) 5.5 0.0-12.0 % Eosinophils (%) (Auto) 0.9 0.0-7.0 % Basophils (%) (Auto) 1.0 0.0-2.0 % Neutrophils # (Auto) 3.2 1.6-8.6 10 ^3/uL Lymphocytes # (Auto) 0.7 0.4-5.4 10 ^3/uL Monocytes # (Auto) 0.2 0-1.3 10 ^3/uL Eosinophils # (Auto) 0 0-0.8 10 ^3/uL Basophils # (Auto) 0 0-0.2 10 ^3/uL Nucleated Red Blood Cells 0.3 % Sodium Level 152 H 136-145 mmol/L Potassium Level 3.4 L 3.5-5.1 mmol/L Chloride Level 130 H 98-107 mmol/L Carbon Dioxide Level < 10 *L 20-31 mmol/L Anion Gap 12.13992 5-15 Blood Urea Nitrogen 37 H 9-23 mg/dL Creatinine 2.23 H 0.550-1.02 mg/dL Glomerular Filtration Rate Calc 24 >90 mL/min BUN/Creatinine Ratio 16.6 10.0-20.0 Serum Glucose 94 74-106 mg/dL Calcium Level 9.0 8.7-10.4 mg/dL Total Bilirubin 1.2 H 0.2-1.0 mg/dL Aspartate Amino Transferase (AST) 38 H <34 U/L Alanine Aminotransferase (ALT) 26 7-40 U/L Alkaline Phosphatase 90 46-116 U/L Ammonia 175 *H 11-32 umol/L Total Protein 6.3 5.7-8.2 g/dL Albumin 3.4 3.2-4.8 g/dL Test 09/12/24 13:36 09/12/24 12:03 09/12/24 11:32 09/12/24 10:19 Range/Units Erythrocyte Sedimentation Rate 33 H 0-20 mm/hr Hemoglobin A1c 4.9 <5.7 % A1C POC Glucose 150 H 70-106 mg/dl Urine Color Light-yellow Yellow Urine Clarity Cloudy H Clear Urine pH 6.0 5.0-9.0 Urine Specific Holt 1.011 1.001-1.035 Urine Protein 1+ H Negative Urine Ketones Negative Negative Urine Blood 1+ H Negative /uL Urine Nitrite Negative Negative Urine Bilirubin Negative Negative Urine Urobilinogen Normal Negative mg/dL Urine Leukocyte Esterase 3+ Negative /uL Urine RBC 18 0 - 4 /hpf Urine WBC Clumps Present None Seen /hpf Urine Microscopic WBC 990 H 0-5 /HPF Urine Squamous Epithelial Cells Few <5 /hpf Urine Bacteria Few H None Seen /hpf Urine Glucose Normal Normal mg/dL Lactic Acid Level 2.4 *H 0.4-2.0 mmol/L Test 09/12/24 09:08 09/12/24 08:21 09/12/24 07:38 Range/Units Sodium Level 150 H 136-145 mmol/L Potassium Level 3.6 3.5-5.1 mmol/L Chloride Level 127 H 98-107 mmol/L Carbon Dioxide Level < 10 *L 20-31 mmol/L Anion Gap 13.99244 5-15 Blood Urea Nitrogen 28 H 9-23 mg/dL Creatinine 2.28 H 0.550-1.02 mg/dL Glomerular Filtration Rate Calc 23 >90 mL/min BUN/Creatinine Ratio 12.3 10.0-20.0 Serum Glucose 133 H 74-106 mg/dL Calcium Level 10.3 8.7-10.4 mg/dL Total Bilirubin 1.7 H 0.2-1.0 mg/dL Aspartate Amino Transferase (AST) 34 <34 U/L Alanine Aminotransferase (ALT) 20 7-40 U/L Alkaline Phosphatase 97 46-116 U/L Total Protein 6.9 5.7-8.2 g/dL Albumin 3.6 3.2-4.8 g/dL White Blood Count 5.9 4.4-10.8 10^3/uL Red Blood Count 3.69 L 4.0-5.20 10^6/uL Hemoglobin 11.6 L 12.2-16.2 g/dL Hematocrit 35.8 L 36.0-46.0 % Mean Corpuscular Volume 96.9 80.0-100.0 fL Mean Corpuscular Hemoglobin 31.5 28.0-32.0 pg Mean Corpuscular Hemoglobin Concent 32.5 32.0-36.0 g/dL Red Cell Distribution Width 16.2 H 11.8-14.3 % Platelet Count 57 L 140-450 10^3/uL Mean Platelet Volume 8.4 6.9-10.8 fL Neutrophils (%) (Auto) 68.5 37.0-80.0 % Lymphocytes (%) (Auto) 24.6 10.0-50.0 % Monocytes (%) (Auto) 5.2 0.0-12.0 % Eosinophils (%) (Auto) 1.1 0.0-7.0 % Basophils (%) (Auto) 0.6 0.0-2.0 % Neutrophils # (Auto) 4.0 1.6-8.6 10 ^3/uL Lymphocytes # (Auto) 1.4 0.4-5.4 10 ^3/uL Monocytes # (Auto) 0.3 0-1.3 10 ^3/uL Eosinophils # (Auto) 0.1 0-0.8 10 ^3/uL Basophils # (Auto) 0 0-0.2 10 ^3/uL Nucleated Red Blood Cells 0.4 % Lactic Acid Level 2.4 *H 0.4-2.0 mmol/L Ammonia 193 *H 11-32 umol/L Troponin I High Sensitivity 9 </=34 ng/L C-Reactive Protein High Sensitivity 0.06 <1.0 mg/dL Vitamin B12 Level 1647 H 211-911 pg/mL Vitamin D 25-Hydroxy 34.5 30.0-100 ng/mL Thyroid Stimulating Hormone (TSH) 1.12 0.55-4.78 uIU/mL POC Glucose 122 H 70-106 mg/dl Assessment Acute kidney injury hemodynamic mediated etiology Metabolic acidosis Hypernatremia Hypokalemia Hepatic encephalopathy s/p Colostomy Mild right hydronephrosis Recommendations D5W with sodium bicarb IV as ordered for acidosis correction D5W IV as ordered for sodium correction Stat ABG ordered and followed GI following We will follow closely Strict Is&Os Discussed with RN bedside Plan discussed with: Patient, Other SAMEER BROOKE MD Sep 14, 2024 18:00
[2024-09-14] MEDS: LACTULOSE 20Gm/30ML SOLN NG SCH (23:17)
[2024-09-15] VITALS (8 sets, daily range): BP systolic 120–137; BP diastolic 56–70; PULSE 84–97; RESP 16–18; TEMP 97.4–98.2; O2SAT 99–100
[2024-09-15 06:37] LABS: Anion Gap 16 (5-15)
[2024-09-15 06:38] LABS: Calcium 9.8 mg/dL (8.7-10.4)
[2024-09-15 06:42] LABS: BUN/Creatinine Ratio 23.3 (10.0-20.0); Carbon Dioxide 13 mmol/L (20-31); Chloride 137 mmol/L (98-107); Glucose 91 mg/dL (74-106); Potassium 2.7 mmol/L (3.5-5.1); Sodium 166 mmol/L (136-145)
[2024-09-15 06:45] LABS: Blood Urea Nitrogen 52 mg/dL (9-23)
[2024-09-15] MEDS: POTASSIUM CHL 20MEQ/100ML 100 ML IV SCH ×2 (07:30→20:26)
[2024-09-15 08:04] LABS: Hemoglobin 10.1 g/dL (12.2-16.2); Nucleated Red Blood Cells % 0.2 %
[2024-09-15 08:07] LABS: Hematocrit 29.6 % (36.0-46.0); Mean Corpuscular Hemoglobin 32.0 pg (28.0-32.0); Mean Corpuscular Volume 94.0 fL (80.0-100.0)
[2024-09-15 08:08] LABS: Alanine Aminotransferase 28 U/L (7-40); Alkaline Phosphatase 78 U/L (46-116); Anion Gap 17 (5-15); BUN/Creatinine Ratio 20.0 (10.0-20.0); Calcium 9.8 mg/dL (8.7-10.4); Glucose 93 mg/dL (74-106); Total Protein 6.0 g/dL (5.7-8.2)
[2024-09-15 08:14] LABS: Albumin 3.2 g/dL (3.2-4.8); Bilirubin, Total 1.3 mg/dL (0.2-1.0); Blood Urea Nitrogen 44 mg/dL (9-23); Carbon Dioxide 11 mmol/L (20-31); Chloride 136 mmol/L (98-107); Potassium 2.9 mmol/L (3.5-5.1); Sodium 164 mmol/L (136-145)
[2024-09-15] MEDS: D5W 5% 1,000 ML IV SCH (11:00)
--- NOTE | 2024-09-15 11:59 | DVHPN2 ---
Reviewed: Care Plan, H&P, Labs, Medications, Previous Orders, Radiology Changes from previous H/P or p: No Changes Objective Vitals Vital Signs Date Time Temp Pulse Resp B/P (MAP) Pulse Ox O2 Delivery O2 Flow Rate FiO2 09/15/24 09:00 97.4 90 16 127/68 (87) 99 97.4 09/14/24 20:30 Room Air* 0 21 Intake/Output Intake and Output 09/15/24 07:00 Intake Total 400 ml Output Total 7050 ml Balance -6650 ml Intake Oral 0 ml IV Total 400 ml Output Urine Total 3050 ml Stool Total 4000 ml Medications Current Medications Medications Dose Ordered Sig/Cecily Route Start Time Stop Time Status Last Admin Dose Admin Ondansetron HCl 4 mg Q4HP PRN IV 09/12/24 11:15 Acetaminophen 650 mg Q6HP PRN PO 09/12/24 11:15 Metronidazole 100 ml @ 100 mls/hr Q8HR IV 09/12/24 14:00 09/15/24 05:14 100 MLS/HR Ceftriaxone Sodium 50 ml @ 100 mls/hr DAILY@09 IV 09/12/24 11:15 09/14/24 10:53 100 MLS/HR Diagnostic Test (Pha) 1 strip Q6HR 09/12/24 12:00 09/15/24 05:14 1 STRIP Insulin Human Regular Q6HR SC 09/12/24 12:00 09/12/24 12:19 2 UNITS Dextrose 50 ml UD PRN IV 09/12/24 11:15 Ergocalciferol 50,000 unit QWEEKLY PO 09/12/24 11:15 Ferrous Sulfate 325 mg DAILY PO 09/13/24 10:00 09/14/24 10:52 325 MG Pantoprazole Sodium 40 mg DAILY PO 09/15/24 10:00 Rifaximin 550 mg BID NG 09/14/24 22:00 09/14/24 20:39 550 MG Lactulose 30 ml Q6HR NG 09/15/24 00:00 09/15/24 05:15 30 ML Dextrose 1,000 ml @ 125 mls/hr Q8H IV 09/15/24 11:00 Laboratory Results Laboratory Tests 09/15/24 05:04 Chemistry Test 09/14/24 14:34 09/15/24 05:04 Calcium Level 9.4 mg/dL (8.7-10.4) 9.8 mg/dL (8.7-10.4) Albumin 3.2 g/dL (3.2-4.8) Total Protein 6.0 g/dL (5.7-8.2) LFT Test 09/15/24 05:04 Alanine Aminotransferase (ALT) 28 U/L (7-40) Alkaline Phosphatase 78 U/L (46-116) Aspartate Amino Transferase (AST) 83 U/L (<34) H Total Bilirubin 1.3 mg/dL (0.2-1.0) H Urinalysis Test 09/12/24 11:32 Urine Color Light-yellow (Yellow) Urine Clarity Cloudy (Clear) H Urine pH 6.0 (5.0-9.0) Urine Specific Wheeler 1.011 (1.001-1.035) Urine Protein 1+ (Negative) H Urine Ketones Negative (Negative) Urine Blood 1+ /uL (Negative) H Urine Nitrite Negative (Negative) Urine Bilirubin Negative (Negative) Urine Urobilinogen Normal mg/dL (Negative) Urine Leukocyte Esterase 3+ /uL (Negative) Urine RBC 18 /hpf (0 - 4) Urine WBC Clumps Present /hpf (None Seen) Urine Microscopic WBC 990 /HPF (0-5) H Urine Squamous Epithelial Cells Few /hpf (<5) Urine Bacteria Few /hpf (None Seen) H Urine Glucose Normal mg/dL (Normal) Blood Gas Results Test 09/14/24 12:05 Arterial Blood pH 7.179 (7.350-7.450) FiO2 % 21.0 Microbiology Microbiology Date/Time Source Procedure Growth Status 09/12/24 11:32 Voided Urine Urine Culture - Final Complete 09/12/24 08:21 Blood Blood Culture - Preliminary NO GROWTH AFTER 72 HOURS OF INCUBATION. Resulted Labs and/or images reviewed: Labs reviewed by me, Image(s) reviewed by me Assessment/Plan Assessment/Plan Acute metabolic encephalopathy Acute hepatic encephalopathy GI consult for Dr. Trammell appreciated UTI: Urine cultures Rocephin Acute hyperammonemia with ammonia 175: Now down to 112, continue lactulose Anemia Thrombocytopenia Non alcoholic cirrhosis of liver Hyponatremia Hyperbilirubinemia Acute on chronic kidney disease Lactic acidosis rule out sepsis Diabetes type 2 History of colon cancer status post urostomy and colostomy Blood cultures negative Urine cultures mixed Patient was discharged from [facility] 07-02-24 after 15 days stay Time spent 70 minutes Advanced care planning time 20 minutes Patient is full code Condition guarded Nitesh [phone] who is also the caregiver at bedside Plan discussed with: Patient My Orders Orders - CLAUDIA COMER MD Procedure Category Date Status Time * Dietary Consult CONS 09/14/24 Transmitted 17:01 Complete Blood Count LAB 09/16/24 Verified 05:00 Complete Blood Count LAB 09/17/24 Verified 05:00 Complete Blood Count LAB 09/19/24 Verified 05:00 Complete Blood Count LAB 09/18/24 Verified 05:00 Comprehensive LAB 09/16/24 Verified Metabolic Panel 05:00 Comprehensive LAB 09/17/24 Verified Metabolic Panel 05:00 Comprehensive LAB 09/18/24 Verified Metabolic Panel 05:00 Comprehensive LAB 09/19/24 Verified Metabolic Panel 05:00 Apply Barrier Cream ISABELA 09/15/24 In Process 08:45 Date of Service: Sep 15, 2024 Billing Provider: CLAUDIA COMER MD Common Visit Codes: [id number] CARE 30-74 MIN CLAUDIA COMER MD Sep 15, 2024 11:59
[2024-09-15] MEDS: POTASSIUM EFFERVESENT TAB 25 MEQ GT ONE (12:05)
[2024-09-15] MEDS: PANTOPRAZOLE 40 MG TAB PO SCH (12:05)
--- NOTE | 2024-09-15 16:42 | DVHPN2 ---
Progress Note Date Seen: Sep 15, 2024 Medical Necessity Reason Pt with a Central, PICC or Fol: No Subjective Patient reports: Other (New events none patient still remained altered) Review of Systems: Deferred Objective vital signs Vital Sign Date Time Temp Pulse Resp B/P (MAP) Pulse Ox O2 Delivery O2 Flow Rate FiO2 09/15/24 13:00 97.8 97 18 124/66 (85) 100 97.8 09/15/24 08:00 Room Air* 0 21 Total Intake and Output 09/14/24 09/14/24 09/15/24 15:00 23:00 07:00 Intake Total 100 ml 300 ml Output Total 6350 ml 700 ml Balance -6250 ml -400 ml medications Current Medications Medications Dose Ordered Sig/Cecily Route Start Time Stop Time Status Last Admin Dose Admin Ondansetron HCl 4 mg Q4HP PRN IV 09/12/24 11:15 Acetaminophen 650 mg Q6HP PRN PO 09/12/24 11:15 Metronidazole 100 ml @ 100 mls/hr Q8HR IV 09/12/24 14:00 09/15/24 14:00 100 MLS/HR Ceftriaxone Sodium 50 ml @ 100 mls/hr DAILY@09 IV 09/12/24 11:15 09/15/24 12:05 100 MLS/HR Diagnostic Test (Pha) 1 strip Q6HR 09/12/24 12:00 09/15/24 12:09 1 STRIP Insulin Human Regular Q6HR SC 09/12/24 12:00 09/12/24 12:19 2 UNITS Dextrose 50 ml UD PRN IV 09/12/24 11:15 Ergocalciferol 50,000 unit QWEEKLY PO 09/12/24 11:15 Ferrous Sulfate 325 mg DAILY PO 09/13/24 10:00 09/15/24 12:05 325 MG Pantoprazole Sodium 40 mg DAILY PO 09/15/24 10:00 09/15/24 12:05 40 MG Rifaximin 550 mg BID NG 09/14/24 22:00 09/15/24 12:05 550 MG Lactulose 30 ml Q6HR NG 09/15/24 00:00 09/15/24 12:08 30 ML Dextrose 1,000 ml @ 125 mls/hr Q8H IV 09/15/24 11:00 Potassium Chloride 100 ml @ 50 mls/hr Q2H IV 09/15/24 16:45 09/15/24 22:44 UNV Examination: GENERAL:Abnormal, HEENT:Abnormal (Has NG tube), ABDOMEN:Abnormal, NEURO:Abnormal laboratory and microbiology Laboratory Tests 09/15/24 05:04 Test 09/15/24 05:04 Range/Units Serum Glucose 93 74-106 mg/dL Microbiology Date/Time Source Procedure Growth Status 09/12/24 11:32 Voided Urine Urine Culture - Final Complete 09/12/24 08:21 Blood Blood Culture - Preliminary NO GROWTH AFTER 72 HOURS OF INCUBATION. Resulted Problem List/Assessment/Plan Problem List/Assessment/Plan Acute kidney injury hemodynamic mediated etiology Baseline Chronic kidney disease four Metabolic acidosis Hypernatremia Hypokalemia Hepatic encephalopathy s/p Colostomy Mild right hydronephrosis Recommendations D5W with sodium bicarb IV given --we will hold today as sodium high--we will give IV bicarb pushes D5W IV as ordered for sodium correction---increase rate Potassium chloride replacement Discussed with daughter in law bedside Plan discussed with: Other My Orders My Orders Orders - SAMEER BROOKE MD Procedure Category Date Status Time D5w 5% (Dextrose 5%) PHA 09/15/24 In Process 11:00 Communication Order ORDERS 09/15/24 Transmitted 11:00 Sodium Bicarb PHA 09/15/24 Logged 50meq/50ml Vial 16:45 Potassium Chl PHA 09/15/24 Logged 20meq/100ml 16:45 Dietary Evaluation Review Comments: 1) Glucerna 1.2Cal @ 60ml/hr 2) Case 1 pk BID 2) Advance diet as medically feasible Expected Outcomes/Goals: To meet >75% estimated needs Fu 2-3 days SAMEER BROOKE MD Sep 15, 2024 16:42
[2024-09-15] MEDS: SODIUM BICARB 8.4% 50Meq/50ml SYR Vial IV ONE (17:00)
[2024-09-15] MEDS: POTASSIUM CHL 20MEQ/100ML 100 ML IV ONE (17:53)
[2024-09-16] VITALS (8 sets, daily range): BP systolic 111–126; BP diastolic 57–71; PULSE 74–83; RESP 17–22; TEMP 97.6–98.5; O2SAT 95–100
--- NOTE | 2024-09-16 00:49 | DVHPN2 ---
Progress Note - Dictate Date Seen: Sep 16, 2024 Medical Necessity Reason Pt with a Central, PICC or Fol: No Subjective Patient seen at bedside She is arousable but continues to be lethargic No GI bleeding is reported Patient has urostomy bag and colostomy bag Patient is on omeprazole, lactulose and rifaximin On IV antibiotic ceftriaxone metronidazole CT abdomen and pelvis revealed- Mild bilateral hydroureteronephrosis without obstructing calculus. Cholelithiasis. Hepatomegaly with fatty infiltration. Fecal retention in the colon consistent with constipation. Ultrasound of the liver revealed- Cholelithiasis. Masslike area in the gallbladder measuring 5 cm. Recommend further evaluation with CT abdomen pelvis with contrast given limited evaluation on noncontrast same day CT. Mild right hydronephrosis. vital signs Vital Sign Date Time Temp Pulse Resp B/P (MAP) Pulse Ox O2 Delivery O2 Flow Rate FiO2 09/15/24 21:00 98.1 95 18 132/70 (90) 100 98.1 09/15/24 19:40 Room Air* 0 21 Total Intake and Output 09/15/24 09/15/24 09/16/24 15:00 23:00 07:00 Intake Total 450 ml Output Total 1375 ml Balance -925 ml medications Current Medications Medications Dose Ordered Sig/Cecily Route Start Time Stop Time Status Last Admin Dose Admin Ondansetron HCl 4 mg Q4HP PRN IV 09/12/24 11:15 Acetaminophen 650 mg Q6HP PRN PO 09/12/24 11:15 Metronidazole 100 ml @ 100 mls/hr Q8HR IV 09/12/24 14:00 09/15/24 21:38 100 MLS/HR Ceftriaxone Sodium 50 ml @ 100 mls/hr DAILY@09 IV 09/12/24 11:15 09/15/24 12:05 100 MLS/HR Diagnostic Test (Pha) 1 strip Q6HR 09/12/24 12:00 09/15/24 23:18 1 STRIP Insulin Human Regular Q6HR SC 09/12/24 12:00 09/15/24 23:22 2 UNITS Dextrose 50 ml UD PRN IV 09/12/24 11:15 Ergocalciferol 50,000 unit QWEEKLY PO 09/12/24 11:15 Ferrous Sulfate 325 mg DAILY PO 09/13/24 10:00 09/15/24 12:05 325 MG Pantoprazole Sodium 40 mg DAILY PO 09/15/24 10:00 09/15/24 12:05 40 MG Rifaximin 550 mg BID NG 09/14/24 22:00 09/15/24 23:07 550 MG Lactulose 30 ml Q6HR NG 09/15/24 00:00 09/15/24 23:08 30 ML Dextrose 1,000 ml @ 125 mls/hr Q8H IV 09/15/24 11:00 09/15/24 21:45 125 MLS/HR Potassium Chloride 100 ml @ 50 mls/hr Q2H IV 09/15/24 16:45 09/16/24 00:44 09/15/24 23:01 50 MLS/HR objective Patient is awake but not alert or oriented She has NG tube;obese Mild abdominal distention No pedal edema Fair bilateral air entry laboratory and microbiology Laboratory Tests 09/15/24 05:04 Test 09/15/24 05:04 Range/Units Serum Glucose 93 74-106 mg/dL Problems(with codes): (1) Gallbladder mass (2) Abnormal finding on GI tract imaging (3) Hepatic encephalopathy (4) Thrombocytopenia (5) Altered mental status (6) Generalized weakness (7) Liver cirrhosis (8) Metabolic encephalopathy (9) Elevated liver enzymes (10) Anemia (11) Dehydration (12) Acute on chronic renal failure (13) Metastasis from colon cancer Prognosis Plan Check tumor markers MRI of the abdomen when patient is more stable Continue to monitor labs IV fluid hydration for her hypernatremia and acute prerenal azotemia Drain further history from Dietary Evaluation Review Comments: 1) Glucerna 1.2Cal @ 60ml/hr 2) Case 1 pk BID 2) Advance diet as medically feasible Expected Outcomes/Goals: To meet >75% estimated needs Fu 2-3 days Plan discussed with: Patient, Other (Nurse) CHRISTIANA FRANCO MD Sep 16, 2024 00:49
[2024-09-16] MEDS: POTASSIUM CHL 20MEQ/100ML 100 ML IV SCH (02:00)
[2024-09-16 06:45] LABS: Hemoglobin 9.5 g/dL (12.2-16.2); Nucleated Red Blood Cells % 0.3 %
[2024-09-16 06:48] LABS: Hematocrit 27.4 % (36.0-46.0); Mean Corpuscular Hemoglobin 32.4 pg (28.0-32.0); Mean Corpuscular Volume 93.4 fL (80.0-100.0)
[2024-09-16 07:02] LABS: Alanine Aminotransferase 28 U/L (7-40); Alkaline Phosphatase 72 U/L (46-116); Anion Gap 14 (5-15); BUN/Creatinine Ratio 21.7 (10.0-20.0); Calcium 9.4 mg/dL (8.7-10.4)
[2024-09-16 07:11] LABS: Albumin 2.9 g/dL (3.2-4.8); Bilirubin, Total 1.6 mg/dL (0.2-1.0); Blood Urea Nitrogen 46 mg/dL (9-23); Carbon Dioxide 16 mmol/L (20-31); Chloride 132 mmol/L (98-107); Glucose 120 mg/dL (74-106); Potassium 3.2 mmol/L (3.5-5.1); Total Protein 5.4 g/dL (5.7-8.2)
[2024-09-16 07:15] LABS: Sodium 162 mmol/L (136-145)
--- NOTE | 2024-09-16 12:53 | DVHPN2 ---
Reviewed: Care Plan, H&P, Labs, Medications, Previous Orders, Radiology Changes from previous H/P or p: No Changes Objective Vitals Vital Signs Date Time Temp Pulse Resp B/P (MAP) Pulse Ox O2 Delivery O2 Flow Rate FiO2 09/16/24 09:00 98.5 80 22 115/62 (79) 96 98.5 09/16/24 08:00 Room Air* 0 21 Intake/Output Intake and Output 09/16/24 07:00 Intake Total 1550 ml Output Total 1775 ml Balance -225 ml Intake Oral 0 ml IV Total 1550 ml Output Urine Total 550 ml Stool Total 1225 ml Medications Current Medications Medications Dose Ordered Sig/Cecily Route Start Time Stop Time Status Last Admin Dose Admin Ondansetron HCl 4 mg Q4HP PRN IV 09/12/24 11:15 Acetaminophen 650 mg Q6HP PRN PO 09/12/24 11:15 Metronidazole 100 ml @ 100 mls/hr Q8HR IV 09/12/24 14:00 09/16/24 05:48 100 MLS/HR Ceftriaxone Sodium 50 ml @ 100 mls/hr DAILY@09 IV 09/12/24 11:15 09/16/24 09:36 100 MLS/HR Diagnostic Test (Pha) 1 strip Q6HR 09/12/24 12:00 09/16/24 12:08 1 STRIP Insulin Human Regular Q6HR SC 09/12/24 12:00 09/16/24 12:28 3 UNITS Dextrose 50 ml UD PRN IV 09/12/24 11:15 Ergocalciferol 50,000 unit QWEEKLY PO 09/12/24 11:15 Ferrous Sulfate 325 mg DAILY PO 09/13/24 10:00 09/16/24 09:35 325 MG Pantoprazole Sodium 40 mg DAILY PO 09/15/24 10:00 09/16/24 09:35 40 MG Rifaximin 550 mg BID NG 09/14/24 22:00 09/16/24 09:35 550 MG Lactulose 30 ml Q6HR NG 09/15/24 00:00 09/16/24 12:07 30 ML Dextrose 1,000 ml @ 125 mls/hr Q8H IV 09/15/24 11:00 09/16/24 05:54 125 MLS/HR Laboratory Results Laboratory Tests 09/16/24 05:30 Chemistry Test 09/16/24 05:30 Albumin 2.9 g/dL (3.2-4.8) L Calcium Level 9.4 mg/dL (8.7-10.4) Total Protein 5.4 g/dL (5.7-8.2) L LFT Test 09/16/24 05:30 Alanine Aminotransferase (ALT) 28 U/L (7-40) Alkaline Phosphatase 72 U/L (46-116) Aspartate Amino Transferase (AST) 78 U/L (<34) H Total Bilirubin 1.6 mg/dL (0.2-1.0) H Urinalysis Test 09/12/24 11:32 Urine Color Light-yellow (Yellow) Urine Clarity Cloudy (Clear) H Urine pH 6.0 (5.0-9.0) Urine Specific [place] 1.011 (1.001-1.035) Urine Protein 1+ (Negative) H Urine Ketones Negative (Negative) Urine Blood 1+ /uL (Negative) H Urine Nitrite Negative (Negative) Urine Bilirubin Negative (Negative) Urine Urobilinogen Normal mg/dL (Negative) Urine Leukocyte Esterase 3+ /uL (Negative) Urine RBC 18 /hpf (0 - 4) Urine WBC Clumps Present /hpf (None Seen) Urine Microscopic WBC 990 /HPF (0-5) H Urine Squamous Epithelial Cells Few /hpf (<5) Urine Bacteria Few /hpf (None Seen) H Urine Glucose Normal mg/dL (Normal) Microbiology Microbiology Date/Time Source Procedure Growth Status 09/12/24 11:32 Voided Urine Urine Culture - Final Complete 09/12/24 08:21 Blood Blood Culture - Preliminary NO GROWTH AFTER 72 HOURS OF INCUBATION. Resulted Labs and/or images reviewed: Labs reviewed by me, Image(s) reviewed by me Assessment/Plan Assessment/Plan Acute metabolic encephalopathy Acute hepatic encephalopathy GI consult for Dr. Trammell appreciated UTI: Urine cultures Rocephin Acute hyperammonemia with ammonia 175: Now down to 112, continue lactulose Anemia Gallbladder mass Thrombocytopenia cirrhosis of liver Hyponatremia Anemia Elevated liver enzymes Hyperbilirubinemia Acute on chronic kidney disease Lactic acidosis rule out sepsis Diabetes type 2 History of colon cancer status post urostomy and colostomy Metastasis from colon cancer Blood cultures negative Urine cultures mixed Patient was discharged from [facility] 07-02-24 after 15 days stay [place] [phone] who is also the caregiver at bedside Plan discussed with: Patient Date of Service: Sep 16, 2024 Billing Provider: CLAUDIA COMER MD Common Visit Codes: [id number] CARE 30-74 MIN CLAUDIA COMER MD Sep 16, 2024 12:53
--- NOTE | 2024-09-16 13:33 | DVHPN2 ---
Progress Note Date Seen: Sep 16, 2024 Medical Necessity Reason Pt with a Central, PICC or Fol: No Subjective Review of Systems: Deferred Objective vital signs Vital Sign Date Time Temp Pulse Resp B/P (MAP) Pulse Ox O2 Delivery O2 Flow Rate FiO2 09/16/24 09:00 98.5 80 22 115/62 (79) 96 98.5 09/16/24 08:00 Room Air* 0 21 Total Intake and Output 09/15/24 09/15/24 09/16/24 15:00 23:00 07:00 Intake Total 450 ml 1100 ml Output Total 1375 ml 400 ml Balance -925 ml 700 ml medications Current Medications Medications Dose Ordered Sig/Cecily Route Start Time Stop Time Status Last Admin Dose Admin Ondansetron HCl 4 mg Q4HP PRN IV 09/12/24 11:15 Acetaminophen 650 mg Q6HP PRN PO 09/12/24 11:15 Metronidazole 100 ml @ 100 mls/hr Q8HR IV 09/12/24 14:00 09/16/24 05:48 100 MLS/HR Ceftriaxone Sodium 50 ml @ 100 mls/hr DAILY@09 IV 09/12/24 11:15 09/16/24 09:36 100 MLS/HR Diagnostic Test (Pha) 1 strip Q6HR 09/12/24 12:00 09/16/24 12:08 1 STRIP Insulin Human Regular Q6HR SC 09/12/24 12:00 09/16/24 12:28 3 UNITS Dextrose 50 ml UD PRN IV 09/12/24 11:15 Ergocalciferol 50,000 unit QWEEKLY PO 09/12/24 11:15 Ferrous Sulfate 325 mg DAILY PO 09/13/24 10:00 09/16/24 09:35 325 MG Pantoprazole Sodium 40 mg DAILY PO 09/15/24 10:00 09/16/24 09:35 40 MG Rifaximin 550 mg BID NG 09/14/24 22:00 09/16/24 09:35 550 MG Lactulose 30 ml Q6HR NG 09/15/24 00:00 09/16/24 12:07 30 ML Dextrose 1,000 ml @ 125 mls/hr Q8H IV 09/15/24 11:00 09/16/24 05:54 125 MLS/HR Examination: GENERAL:Abnormal laboratory and microbiology Laboratory Tests 09/16/24 05:30 Test 09/16/24 05:30 Range/Units Serum Glucose 120 H 74-106 mg/dL Microbiology Date/Time Source Procedure Growth Status 09/12/24 11:32 Voided Urine Urine Culture - Final Complete 09/12/24 08:21 Blood Blood Culture - Preliminary NO GROWTH AFTER 72 HOURS OF INCUBATION. Resulted Problem List/Assessment/Plan Problem List/Assessment/Plan Acute kidney injury hemodynamic mediated etiology Baseline Chronic kidney disease four Metabolic acidosis Hypernatremia Hypokalemia Hepatic encephalopathy s/p Colostomy Mild right hydronephrosis D5W Potassium chloride replacement lactulose could be contributing anemia oral iron, iron panel Plan discussed with: Patient Dietary Evaluation Review Comments: 1) Glucerna 1.2Cal @ 60ml/hr 2) Case 1 pk BID 2) Advance diet as medically feasible Expected Outcomes/Goals: To meet >75% estimated needs Fu 2-3 days Total Time (mins): 35 ARANZA LE MD Sep 16, 2024 13:33
[2024-09-16 14:07] LABS: Iron 174.0 ug/dL (50-170)
[2024-09-16 14:10] LABS: Total Iron Binding Capacity 253.0 ug/dL (250-425)
[2024-09-17] VITALS (8 sets, daily range): BP systolic 96–105; BP diastolic 44–62; PULSE 64–86; RESP 16–20; TEMP 97.6–98.1; O2SAT 96–100
--- NOTE | 2024-09-17 00:05 | DVH ---
CHEST RADIOGRAPH Indication: NGT placement Technique: Single frontal view of the chest was obtained COMPARISON: XY CHEST XRAY 1 VIEW on DOS: 09/12/24, XY CHEST PORTABLE on DOS: 09/12/24, XY CHEST PORTABL E on DOS: 04/13/24, XY CHEST PORTABLE on DOS: 12/08/23, XY CHEST PORTABLE on DOS: 12/05/23 FINDINGS: Lines and Tubes: Enteric catheter courses below the level of the diaphragm and terminates within the left upper quadrant, presumably within the proximal aspect of the gastric lumen. Lungs: Clear Pleura: No effusion. No pneumothorax. Cardiomediastinal contours: Cardiomegaly. Atherosclerotic vascular calcifications. Bones: Unremarkable IMPRESSION: 1. Cardiomegaly. 2. Enteric catheter tip within the proximal gastric lumen.
[2024-09-17 09:20] LABS: Mean Corpuscular Hemoglobin 32.1 pg (28.0-32.0)
[2024-09-17 09:25] LABS: Hematocrit 26.5 % (36.0-46.0); Hemoglobin 9.0 g/dL (12.2-16.2); Mean Corpuscular Volume 94.4 fL (80.0-100.0); Nucleated Red Blood Cells % 0.2 %
[2024-09-17 09:38] LABS: Alanine Aminotransferase 34 U/L (7-40); Alkaline Phosphatase 67 U/L (46-116); Anion Gap 10 (5-15); BUN/Creatinine Ratio 20.0 (10.0-20.0); Calcium 8.8 mg/dL (8.7-10.4)
[2024-09-17 09:41] LABS: Carbon Dioxide 16 mmol/L (20-31); Chloride 125 mmol/L (98-107); Potassium 2.9 mmol/L (3.5-5.1); Sodium 151 mmol/L (136-145)
[2024-09-17 09:42] LABS: Albumin 2.7 g/dL (3.2-4.8); Bilirubin, Total 1.8 mg/dL (0.2-1.0); Blood Urea Nitrogen 37 mg/dL (9-23); Glucose 130 mg/dL (74-106); Total Protein 5.1 g/dL (5.7-8.2)
--- NOTE | 2024-09-17 10:35 | DVHPN2 ---
Reviewed: Care Plan, H&P, Labs, Medications, Previous Orders, Radiology Changes from previous H/P or p: No Changes Objective Vitals Vital Signs Date Time Temp Pulse Resp B/P (MAP) Pulse Ox O2 Delivery O2 Flow Rate FiO2 09/17/24 09:00 97.8 64 20 96/55 (69) 99 97.8 09/16/24 20:00 Room Air* 0 21 Intake/Output Intake and Output 09/17/24 07:00 Intake Total 250 ml Output Total 1325 ml Balance -1075 ml IV Total 250 ml Output Urine Total 325 ml Stool Total 1000 ml Medications Current Medications Medications Dose Ordered Sig/Cecily Route Start Time Stop Time Status Last Admin Dose Admin Ondansetron HCl 4 mg Q4HP PRN IV 09/12/24 11:15 Acetaminophen 650 mg Q6HP PRN PO 09/12/24 11:15 Metronidazole 100 ml @ 100 mls/hr Q8HR IV 09/12/24 14:00 09/17/24 06:01 100 MLS/HR Ceftriaxone Sodium 50 ml @ 100 mls/hr DAILY@09 IV 09/12/24 11:15 09/17/24 09:19 100 MLS/HR Diagnostic Test (Pha) 1 strip Q6HR 09/12/24 12:00 09/17/24 06:01 1 STRIP Insulin Human Regular Q6HR SC 09/12/24 12:00 09/17/24 00:17 2 UNITS Dextrose 50 ml UD PRN IV 09/12/24 11:15 Ergocalciferol 50,000 unit QWEEKLY PO 09/12/24 11:15 Ferrous Sulfate 325 mg DAILY PO 09/13/24 10:00 09/17/24 09:20 325 MG Pantoprazole Sodium 40 mg DAILY PO 09/15/24 10:00 09/17/24 09:20 40 MG Rifaximin 550 mg BID NG 09/14/24 22:00 09/17/24 09:20 550 MG Lactulose 30 ml Q6HR NG 09/15/24 00:00 09/17/24 06:01 30 ML Dextrose 1,000 ml @ 125 mls/hr Q8H IV 09/15/24 11:00 09/17/24 02:37 125 MLS/HR Laboratory Results Laboratory Tests 09/17/24 09:08 Chemistry Test 09/17/24 09:08 Albumin 2.7 g/dL (3.2-4.8) L Calcium Level 8.8 mg/dL (8.7-10.4) Total Protein 5.1 g/dL (5.7-8.2) L LFT Test 09/17/24 09:08 Alanine Aminotransferase (ALT) 34 U/L (7-40) Alkaline Phosphatase 67 U/L (46-116) Aspartate Amino Transferase (AST) 82 U/L (13-40) H Total Bilirubin 1.8 mg/dL (0.2-1.0) H Urinalysis Test 09/12/24 11:32 Urine Color Light-yellow (Yellow) Urine Clarity Cloudy (Clear) H Urine pH 6.0 (5.0-9.0) Urine Specific [place] 1.011 (1.001-1.035) Urine Protein 1+ (Negative) H Urine Ketones Negative (Negative) Urine Blood 1+ /uL (Negative) H Urine Nitrite Negative (Negative) Urine Bilirubin Negative (Negative) Urine Urobilinogen Normal mg/dL (Negative) Urine Leukocyte Esterase 3+ /uL (Negative) Urine RBC 18 /hpf (0 - 4) Urine WBC Clumps Present /hpf (None Seen) Urine Microscopic WBC 990 /HPF (0-5) H Urine Squamous Epithelial Cells Few /hpf (<5) Urine Bacteria Few /hpf (None Seen) H Urine Glucose Normal mg/dL (Normal) Microbiology Microbiology Date/Time Source Procedure Growth Status 09/12/24 11:32 Voided Urine Urine Culture - Final Complete 09/12/24 08:21 Blood Blood Culture - Final NO GROWTH AFTER 5 DAYS OF INCUBATION. Complete Labs and/or images reviewed: Labs reviewed by me, Image(s) reviewed by me Assessment/Plan Assessment/Plan Acute metabolic encephalopathy Acute hepatic encephalopathy GI consult for Dr. Trammell appreciated UTI: Urine cultures Rocephin Acute hyperammonemia with ammonia 175: Continue lactulose Anemia Gallbladder mass Thrombocytopenia cirrhosis of liver Hyponatremia Acute hypokalemia: Replace potassium Anemia Elevated liver enzymes Hyperbilirubinemia LU on CKD 4: Nephrology consult appreciated Lactic acidosis rule out sepsis Diabetes type 2 History of colon cancer status post urostomy and colostomy Metastasis from colon cancer Blood cultures negative Urine cultures mixed Patient was discharged from [facility] 07-02[facility]24 after 15 days stay [place] [phone] who is also the caregiver at bedside Plan discussed with: Patient My Orders Orders - CLAUDIA COMER MD Procedure Category Date Status Time Chest Portable XY 09/16/24 Resulted 22:39 Rbc Morphology LAB 09/17/24 In Process 09:08 Ammonia LAB 09/18/24 Verified 04:00 Date of Service: Sep 17, 2024 Billing Provider: CLAUDIA COMER MD Common Visit Codes: [id number] CARE 30-74 MIN CLAUDIA COMER MD Sep 17, 2024 10:35
--- NOTE | 2024-09-17 10:48 | DVHPN2 ---
Progress Note Date Seen: Sep 17, 2024 Medical Necessity Reason Pt with a Central, PICC or Fol: No Objective vital signs Vital Sign Date Time Temp Pulse Resp B/P (MAP) Pulse Ox O2 Delivery O2 Flow Rate FiO2 09/17/24 09:00 97.8 64 20 96/55 (69) 99 97.8 09/16/24 20:00 Room Air* 0 21 Total Intake and Output 09/16/24 09/16/24 09/17/24 15:00 23:00 07:00 Intake Total 150 ml 100 ml Output Total 725 ml 600 ml Balance 150 ml -625 ml -600 ml medications Current Medications Medications Dose Ordered Sig/Cecily Route Start Time Stop Time Status Last Admin Dose Admin Ondansetron HCl 4 mg Q4HP PRN IV 09/12/24 11:15 Acetaminophen 650 mg Q6HP PRN PO 09/12/24 11:15 Metronidazole 100 ml @ 100 mls/hr Q8HR IV 09/12/24 14:00 09/17/24 06:01 100 MLS/HR Ceftriaxone Sodium 50 ml @ 100 mls/hr DAILY@09 IV 09/12/24 11:15 09/17/24 09:19 100 MLS/HR Diagnostic Test (Pha) 1 strip Q6HR 09/12/24 12:00 09/17/24 06:01 1 STRIP Insulin Human Regular Q6HR SC 09/12/24 12:00 09/17/24 00:17 2 UNITS Dextrose 50 ml UD PRN IV 09/12/24 11:15 Ergocalciferol 50,000 unit QWEEKLY PO 09/12/24 11:15 Ferrous Sulfate 325 mg DAILY PO 09/13/24 10:00 09/17/24 09:20 325 MG Pantoprazole Sodium 40 mg DAILY PO 09/15/24 10:00 09/17/24 09:20 40 MG Rifaximin 550 mg BID NG 09/14/24 22:00 09/17/24 09:20 550 MG Lactulose 30 ml Q6HR NG 09/15/24 00:00 09/17/24 06:01 30 ML Potassium Chloride 100 ml @ 50 mls/hr Q2H IV 09/17/24 10:30 09/17/24 16:29 UNV Potassium Chloride 20 meq/ Dextrose 1,010 ml @ 75 mls/hr [id number] IV 09/17/24 10:30 UNV Potassium Chloride 100 ml @ 50 mls/hr Q2H IV 09/17/24 10:30 09/17/24 14:29 UNV laboratory and microbiology Laboratory Tests 09/17/24 09:08 Test 09/17/24 09:08 Range/Units Serum Glucose 130 H 74-106 mg/dL Microbiology Date/Time Source Procedure Growth Status 09/12/24 11:32 Voided Urine Urine Culture - Final Complete 09/12/24 08:21 Blood Blood Culture - Final NO GROWTH AFTER 5 DAYS OF INCUBATION. Complete Problem List/Assessment/Plan Problem List/Assessment/Plan Acute kidney injury hemodynamic mediated etiology Baseline Chronic kidney disease four Metabolic acidosis Hypernatremia Hypokalemia Hepatic encephalopathy s/p Colostomy Mild right hydronephrosis D5W w/ potassium . check Mg level Potassium chloride replacement lactulose could be contributing oral iron Plan discussed with: Patient My Orders My Orders Orders - ARANZA LE MD Procedure Category Date Status Time D5w 5% (Dextrose 5%) PHA 09/17/24 Logged W/Potassium Chlorid 10:30 Potassium Chl PHA 09/17/24 Logged 20meq/100ml 10:30 Magnesium LAB 09/17/24 In Process 10:21 Dietary Evaluation Review Comments: 1) Glucerna 1.2Cal @ 60ml/hr 2) Case 1 pk BID 2) Advance diet as medically feasible Expected Outcomes/Goals: To meet >75% estimated needs Fu 2-3 days Total Time (mins): 35 ARANZA LE MD Sep 17, 2024 10:48
[2024-09-17] MEDS: POTASSIUM CHL 20MEQ/100ML 100 ML IV SCH (11:59)
--- NOTE | 2024-09-17 14:24 | DVHPN2 ---
Progress Note - Dictate Date Seen: Sep 17, 2024 Medical Necessity Reason Pt with a Central, PICC or Fol: No Subjective Patient seen at bedside; slightly more coherent and able to speak Patient is hungry and wants to eat No GI bleeding is reported Patient has urostomy bag and colostomy bag Patient is on omeprazole, lactulose and rifaximin S/P paracentesis On IV antibiotic ceftriaxone metronidazole CT abdomen and pelvis revealed- Mild bilateral hydroureteronephrosis without obstructing calculus. Cholelithiasis. Hepatomegaly with fatty infiltration. Fecal retention in the colon consistent with constipation. Ultrasound of the liver revealed- Cholelithiasis. Masslike area in the gallbladder measuring 5 cm. Recommend further evaluation with CT abdomen pelvis with contrast given limited evaluation on noncontrast same day CT. Mild right hydronephrosis. vital signs Vital Sign Date Time Temp Pulse Resp B/P (MAP) Pulse Ox O2 Delivery O2 Flow Rate FiO2 09/17/24 13:00 97.8 69 20 101/52 (68) 97 97.8 09/17/24 08:00 Room Air* 0 21 Total Intake and Output 09/16/24 09/16/24 09/17/24 15:00 23:00 07:00 Intake Total 150 ml 100 ml Output Total 725 ml 600 ml Balance 150 ml -625 ml -600 ml medications Current Medications Medications Dose Ordered Sig/Cecily Route Start Time Stop Time Status Last Admin Dose Admin Ondansetron HCl 4 mg Q4HP PRN IV 09/12/24 11:15 Acetaminophen 650 mg Q6HP PRN PO 09/12/24 11:15 Metronidazole 100 ml @ 100 mls/hr Q8HR IV 09/12/24 14:00 09/17/24 14:15 100 MLS/HR Ceftriaxone Sodium 50 ml @ 100 mls/hr DAILY@09 IV 09/12/24 11:15 09/17/24 09:19 100 MLS/HR Diagnostic Test (Pha) 1 strip Q6HR 09/12/24 12:00 09/17/24 11:42 1 STRIP Insulin Human Regular Q6HR SC 09/12/24 12:00 09/17/24 00:17 2 UNITS Dextrose 50 ml UD PRN IV 09/12/24 11:15 Ergocalciferol 50,000 unit QWEEKLY PO 09/12/24 11:15 Ferrous Sulfate 325 mg DAILY PO 09/13/24 10:00 09/17/24 09:20 325 MG Pantoprazole Sodium 40 mg DAILY PO 09/15/24 10:00 09/17/24 09:20 40 MG Rifaximin 550 mg BID NG 09/14/24 22:00 09/17/24 09:20 550 MG Lactulose 30 ml Q6HR NG 09/15/24 00:00 09/17/24 11:41 30 ML Potassium Chloride 100 ml @ 50 mls/hr Q2H IV 09/17/24 10:30 09/17/24 16:29 UNV Potassium Chloride 20 meq/ Dextrose 1,010 ml @ 75 mls/hr [id number] IV 09/17/24 10:30 UNV Potassium Chloride 100 ml @ 50 mls/hr Q2H IV 09/17/24 10:30 09/17/24 14:29 09/17/24 14:15 50 MLS/HR objective Patient is awake but not alert or oriented She has NG tube;obese Mild abdominal distention No pedal edema Fair bilateral air entry laboratory and microbiology Laboratory Tests 09/17/24 09:08 Test 09/17/24 09:08 Range/Units Serum Glucose 130 H 74-106 mg/dL Problems(with codes): (1) Metastasis from colon cancer (2) Acute on chronic renal failure (3) Anemia (4) Dehydration (5) Abnormal finding on GI tract imaging (6) Gallbladder mass Prognosis Plan Mild elevation in CEA and CA 19-9 likely related to her history of colon cancer with metastases Continue supportive care Start her on clear liquid diet If she tolerates that we can discontinue the NG tube Keep head end elevated to 30 at all times during feedings Discharge planning as per hospitalist I will be out of town for the rest of the week If any further GI input is required please contact GI physician on-call Dietary Evaluation Review Comments: 1) Glucerna 1.2Cal @ 60ml/hr 2) Case 1 pk BID 2) Advance diet as medically feasible Expected Outcomes/Goals: To meet >75% estimated needs Fu 2-3 days Plan discussed with: Patient, Other (Nurse Garlora) CHRISTIANA FRANCO MD Sep 17, 2024 14:24
[2024-09-17] MEDS: POTASSIUM CHL 20MEQ/100ML 100 ML IV ONE (17:05)
[2024-09-17] MEDS: POTASSIUM CHLORIDE 20 MEQ in D5W 5% 1,000 ML IV SCH (17:17)
[2024-09-18] VITALS (8 sets, daily range): BP systolic 94–112; BP diastolic 45–66; PULSE 66–80; RESP 16–18; TEMP 97.9–98.2; O2SAT 95–100
[2024-09-18 06:34] LABS: Hemoglobin 9.0 g/dL (12.2-16.2); Mean Corpuscular Hemoglobin 32.0 pg (28.0-32.0)
[2024-09-18 06:37] LABS: Hematocrit 26.6 % (36.0-46.0); Mean Corpuscular Volume 94.5 fL (80.0-100.0); Nucleated Red Blood Cells % 0.7 %
[2024-09-18 06:54] LABS: Alanine Aminotransferase 37 U/L (7-40); Alkaline Phosphatase 65 U/L (46-116); Anion Gap 11 (5-15); BUN/Creatinine Ratio 19.9 (10.0-20.0); Potassium 3.6 mmol/L (3.5-5.1)
[2024-09-18 07:04] LABS: Albumin 2.7 g/dL (3.2-4.8); Bilirubin, Total 1.9 mg/dL (0.2-1.0); Blood Urea Nitrogen 32 mg/dL (9-23); Calcium 8.4 mg/dL (8.7-10.4); Carbon Dioxide 13 mmol/L (20-31); Chloride 122 mmol/L (98-107); Glucose 61 mg/dL (74-106); Sodium 146 mmol/L (136-145); Total Protein 5.0 g/dL (5.7-8.2)
--- NOTE | 2024-09-18 08:33 | ECG ---
[facility] Test Date: 2024-09-12 Test Time: 07:44:06 [facility] Diving Fisher: KALPANA : 1960 Requested By: ARIANNA RANDALL Order Number: [id number] Reading MD: Kip Glez Measurements Intervals [place] Rate: 94 P: 95 NH: 223 QRS: 91 QRSD: 103 T: 34 QT: 383 QTc: 479 Interpretive Statements Sinus rhythm Prolonged NH interval Right axis deviation Low voltage, precordial leads Probable anteroseptal infarct, old Electronically Signed On 09-20-2024 8:50:34 PDT by Kip Glez Please click the below link to view image of tracing.
--- NOTE | 2024-09-18 14:28 | DVHPN2 ---
Progress Note Date Seen: Sep 18, 2024 Medical Necessity Reason Pt with a Central, PICC or Fol: No Objective vital signs Vital Sign Date Time Temp Pulse Resp B/P (MAP) Pulse Ox O2 Delivery O2 Flow Rate FiO2 09/18/24 13:00 98.2 76 18 112/66 (81) 100 98.2 09/18/24 08:00 Room Air* 0 21 Total Intake and Output 09/17/24 09/17/24 09/18/24 15:00 23:00 07:00 Intake Total 150 ml 600 ml 400 ml Output Total 1300 ml 1675 ml Balance 150 ml -700 ml -1275 ml medications Current Medications Medications Dose Ordered Sig/Cecily Route Start Time Stop Time Status Last Admin Dose Admin Ondansetron HCl 4 mg Q4HP PRN IV 09/12/24 11:15 Acetaminophen 650 mg Q6HP PRN PO 09/12/24 11:15 Metronidazole 100 ml @ 100 mls/hr Q8HR IV 09/12/24 14:00 09/18/24 13:10 100 MLS/HR Ceftriaxone Sodium 50 ml @ 100 mls/hr DAILY@09 IV 09/12/24 11:15 09/18/24 09:36 100 MLS/HR Diagnostic Test (Pha) 1 strip Q6HR 09/12/24 12:00 09/18/24 11:13 1 STRIP Insulin Human Regular Q6HR SC 09/12/24 12:00 09/18/24 11:28 2 UNITS Dextrose 50 ml UD PRN IV 09/12/24 11:15 Ergocalciferol 50,000 unit QWEEKLY PO 09/12/24 11:15 Ferrous Sulfate 325 mg DAILY PO 09/13/24 10:00 09/18/24 09:36 325 MG Pantoprazole Sodium 40 mg DAILY PO 09/15/24 10:00 09/18/24 09:36 40 MG Rifaximin 550 mg BID NG 09/14/24 22:00 09/18/24 09:36 550 MG Potassium Chloride 20 meq/ Dextrose 1,010 ml @ 75 mls/hr [id number] IV 09/17/24 10:30 09/18/24 11:22 75 MLS/HR Examination: GENERAL:Normal, CVS:Normal, ABDOMEN:Normal, SKIN:Normal laboratory and microbiology Laboratory Tests 09/18/24 05:19 Test 09/18/24 05:19 Range/Units Serum Glucose 61 L 74-106 mg/dL Microbiology Date/Time Source Procedure Growth Status 09/12/24 11:32 Voided Urine Urine Culture - Final Complete 09/12/24 08:21 Blood Blood Culture - Final NO GROWTH AFTER 5 DAYS OF INCUBATION. Complete Problem List/Assessment/Plan Problem List/Assessment/Plan Acute kidney injury hemodynamic mediated etiology Baseline Chronic kidney disease four Metabolic acidosis Hypernatremia Hypokalemia Hepatic encephalopathy s/p Colostomy Mild right hydronephrosis D5W w/ potassium . check Mg level Potassium chloride replacement lactulose could be contributing oral iron Plan discussed with: Patient Dietary Evaluation Review Comments: 1) Glucerna 1.2Cal @ 60ml/hr 2) Case 1 pk BID 2) Advance diet as medically feasible Expected Outcomes/Goals: To meet >75% estimated needs Fu 2-3 days ARANZA LE MD Sep 18, 2024 14:28
[2024-09-18] MEDS: POTASSIUM CHLORIDE 20 MEQ in D5W 5% 1,000 ML IV SCH (16:46)
[2024-09-18] MEDS: LACTULOSE 20Gm/30ML SOLN PO SCH (23:40)
[2024-09-19] VITALS (7 sets, daily range): BP systolic 99–143; BP diastolic 55–75; PULSE 74–100; RESP 16–20; TEMP 98.1–98.8; O2SAT 93–100
[2024-09-19 06:32] LABS: Hemoglobin 9.8 g/dL (12.2-16.2)
[2024-09-19 06:34] LABS: Hematocrit 30.2 % (36.0-46.0); Mean Corpuscular Hemoglobin 32.5 pg (28.0-32.0); Mean Corpuscular Volume 99.9 fL (80.0-100.0); Nucleated Red Blood Cells % 0.2 %
[2024-09-19 06:54] LABS: Alkaline Phosphatase 69 U/L (46-116); Anion Gap 10 (5-15); BUN/Creatinine Ratio 14.2 (10.0-20.0); Blood Urea Nitrogen 20 mg/dL (9-23); Glucose 104 mg/dL (74-106); Potassium 4.1 mmol/L (3.5-5.1); Sodium 142 mmol/L (136-145)
[2024-09-19 06:55] LABS: Alanine Aminotransferase 43 U/L (7-40); Albumin 2.9 g/dL (3.2-4.8); Bilirubin, Total 2.3 mg/dL (0.2-1.0); Calcium 8.6 mg/dL (8.7-10.4); Carbon Dioxide 12 mmol/L (20-31); Chloride 120 mmol/L (98-107); Total Protein 5.4 g/dL (5.7-8.2)
[2024-09-19] MEDS: ERGOCALCIFEROL 50,000 UNIT(1.25MG) CAP PO SCH (10:50)
--- NOTE | 2024-09-19 11:18 | DVHPN2 ---
Reviewed: Care Plan, H&P, Labs, Medications, Previous Orders, Radiology Changes from previous H/P or p: No Changes Objective Vitals Vital Signs Date Time Temp Pulse Resp B/P (MAP) Pulse Ox O2 Delivery O2 Flow Rate FiO2 09/19/24 09:00 98.4 77 16 102/60 (74) 100 98.4 09/19/24 08:00 Room Air* 0 21 Intake/Output Intake and Output 09/19/24 07:00 Intake Total 2900 ml Output Total 3180 ml Balance -280 ml Intake Oral 1600 ml IV Total 1300 ml Output Urine Total 1980 ml Stool Total 1200 ml Medications Current Medications Medications Dose Ordered Sig/Cecily Route Start Time Stop Time Status Last Admin Dose Admin Ondansetron HCl 4 mg Q4HP PRN IV 09/12/24 11:15 Acetaminophen 650 mg Q6HP PRN PO 09/12/24 11:15 Metronidazole 100 ml @ 100 mls/hr Q8HR IV 09/12/24 14:00 09/19/24 05:58 100 MLS/HR Ceftriaxone Sodium 50 ml @ 100 mls/hr DAILY@09 IV 09/12/24 11:15 09/19/24 10:52 100 MLS/HR Diagnostic Test (Pha) 1 strip Q6HR 09/12/24 12:00 09/19/24 05:57 1 STRIP Insulin Human Regular Q6HR SC 09/12/24 12:00 09/18/24 23:53 2 UNITS Dextrose 50 ml UD PRN IV 09/12/24 11:15 Ergocalciferol 50,000 unit QWEEKLY PO 09/12/24 11:15 09/19/24 10:50 50,000 UNIT Ferrous Sulfate 325 mg DAILY PO 09/13/24 10:00 09/19/24 10:49 325 MG Pantoprazole Sodium 40 mg DAILY PO 09/15/24 10:00 09/19/24 10:50 40 MG Potassium Chloride 20 meq/ Dextrose 1,010 ml @ 50 mls/hr [id number] IV 09/18/24 14:30 09/19/24 04:20 50 MLS/HR Lactulose 30 ml Q6HR PO 09/19/24 00:00 09/19/24 05:57 30 ML Rifaximin 550 mg BID PO 09/19/24 08:45 09/19/24 10:51 550 MG Laboratory Results Laboratory Tests 09/19/24 05:34 Chemistry Test 09/19/24 05:34 Albumin 2.9 g/dL (3.2-4.8) L Calcium Level 8.6 mg/dL (8.7-10.4) L Total Protein 5.4 g/dL (5.7-8.2) L LFT Test 09/19/24 05:34 Alanine Aminotransferase (ALT) 43 U/L (7-40) H Alkaline Phosphatase 69 U/L (46-116) Aspartate Amino Transferase (AST) 83 U/L (13-40) H Total Bilirubin 2.3 mg/dL (0.2-1.0) H Urinalysis Test 09/12/24 11:32 Urine Color Light-yellow (Yellow) Urine Clarity Cloudy (Clear) H Urine pH 6.0 (5.0-9.0) Urine Specific [place] 1.011 (1.001-1.035) Urine Protein 1+ (Negative) H Urine Ketones Negative (Negative) Urine Blood 1+ /uL (Negative) H Urine Nitrite Negative (Negative) Urine Bilirubin Negative (Negative) Urine Urobilinogen Normal mg/dL (Negative) Urine Leukocyte Esterase 3+ /uL (Negative) Urine RBC 18 /hpf (0 - 4) Urine WBC Clumps Present /hpf (None Seen) Urine Microscopic WBC 990 /HPF (0-5) H Urine Squamous Epithelial Cells Few /hpf (<5) Urine Bacteria Few /hpf (None Seen) H Urine Glucose Normal mg/dL (Normal) Microbiology Microbiology Date/Time Source Procedure Growth Status 09/12/24 11:32 Voided Urine Urine Culture - Final Complete 09/12/24 08:21 Blood Blood Culture - Final NO GROWTH AFTER 5 DAYS OF INCUBATION. Complete Labs and/or images reviewed: Labs reviewed by me, Image(s) reviewed by me Assessment/Plan Assessment/Plan Acute metabolic encephalopathy Acute hepatic encephalopathy GI consult for Dr. Trammell appreciated UTI: Urine cultures Rocephin Acute hyperammonemia with ammonia 175: Continue lactulose Anemia Gallbladder mass Thrombocytopenia cirrhosis of liver Hyponatremia Acute hypokalemia: Replace potassium Anemia Elevated liver enzymes Hyperbilirubinemia LU on CKD 4: Nephrology consult appreciated Lactic acidosis rule out sepsis Diabetes type 2 History of colon cancer status post urostomy and colostomy Metastasis from colon cancer Blood cultures negative Urine cultures mixed Patient was discharged from [facility] 07-02-24 after 15 days stay Time spent 45 minutes Nitesh [phone] who is also the caregiver at bedside Plan discussed with: Patient My Orders Orders - CLAUDIA COMER MD Procedure Category Date Status Time Lactulose Oral PHA 09/19/24 In Process 00:00 Rifaximin (Xifaxan) PHA 09/19/24 In Process 08:45 Date of Service: Sep 19, 2024 Billing Provider: CLAUDIA COMER MD Common Visit Codes: [id number] INP/OBS CARE(HIGH) CLAUDIA COMER MD Sep 19, 2024 11:18
--- NOTE | 2024-09-19 14:28 | DVHPN2 ---
Progress Note Date Seen: Sep 19, 2024 Medical Necessity Reason Pt with a Central, PICC or Fol: No Subjective Patient reports: Feels worse Review of Systems: GI:Abnormal Objective vital signs Vital Sign Date Time Temp Pulse Resp B/P (MAP) Pulse Ox O2 Delivery O2 Flow Rate FiO2 09/19/24 12:46 98.4 78 20 99/55 (70) 100 98.4 09/19/24 08:00 Room Air* 0 21 Total Intake and Output 09/18/24 09/18/24 09/19/24 15:00 23:00 07:00 Intake Total 150 ml 600 ml 2150 ml Output Total 1730 ml 1450 ml Balance 150 ml -1130 ml 700 ml medications Current Medications Medications Dose Ordered Sig/Cecily Route Start Time Stop Time Status Last Admin Dose Admin Ondansetron HCl 4 mg Q4HP PRN IV 09/12/24 11:15 Acetaminophen 650 mg Q6HP PRN PO 09/12/24 11:15 Metronidazole 100 ml @ 100 mls/hr Q8HR IV 09/12/24 14:00 09/19/24 05:58 100 MLS/HR Ceftriaxone Sodium 50 ml @ 100 mls/hr DAILY@09 IV 09/12/24 11:15 09/19/24 10:52 100 MLS/HR Diagnostic Test (Pha) 1 strip Q6HR 09/12/24 12:00 09/19/24 11:42 1 STRIP Insulin Human Regular Q6HR SC 09/12/24 12:00 09/19/24 11:57 3 UNITS Dextrose 50 ml UD PRN IV 09/12/24 11:15 Ergocalciferol 50,000 unit QWEEKLY PO 09/12/24 11:15 09/19/24 10:50 50,000 UNIT Ferrous Sulfate 325 mg DAILY PO 09/13/24 10:00 09/19/24 10:49 325 MG Pantoprazole Sodium 40 mg DAILY PO 09/15/24 10:00 09/19/24 10:50 40 MG Potassium Chloride 20 meq/ Dextrose 1,010 ml @ 50 mls/hr [id number] IV 09/18/24 14:30 09/19/24 04:20 50 MLS/HR Lactulose 30 ml Q6HR PO 09/19/24 00:00 09/19/24 11:54 30 ML Rifaximin 550 mg BID PO 09/19/24 08:45 09/19/24 10:51 550 MG Examination: GENERAL:Abnormal, ABDOMEN:Normal, SKIN:Normal laboratory and microbiology Laboratory Tests 09/19/24 05:34 Test 09/19/24 05:34 Range/Units Serum Glucose 104 74-106 mg/dL Microbiology Date/Time Source Procedure Growth Status 09/12/24 11:32 Voided Urine Urine Culture - Final Complete 09/12/24 08:21 Blood Blood Culture - Final NO GROWTH AFTER 5 DAYS OF INCUBATION. Complete Problem List/Assessment/Plan Problem List/Assessment/Plan Acute kidney injury Hypernatremia Hypokalemia Hepatic encephalopathy s/p Colostomy Mild right hydronephrosis nonAG metabolic acidosis change IVF to 1/2NS w/ sodium bicarb and 10meq/l KCL lactulose could be contributing to high stool output and likely bicarb losses oral iron Plan discussed with: Patient My Orders My Orders Orders - ARANZA LE MD Procedure Category Date Status Time D5w 5% (Dextrose 5%) PHA 09/18/24 In Process W/Potassium Chlorid 14:30 Sodium Bicarb PHA 09/19/24 Logged 50meq/50ml Vial 14:30 Dietary Evaluation Review Comments: 1) Glucerna 1.2Cal @ 60ml/hr 2) Case 1 pk BID 2) Advance diet as medically feasible Expected Outcomes/Goals: To meet >75% estimated needs Fu 2-3 days Total Time (mins): 50 ARANZA LE MD Sep 19, 2024 14:28
[2024-09-19] MEDS: SODIUM BICARB 8.4% 50Meq/50ml SYR Vial IV ONE (16:15)
[2024-09-19] MEDS: SODIUM BICARB IV SCH (16:16)
[2024-09-19] MEDS: POTASSIUM CHLORIDE IV SCH (16:16)
[2024-09-19] MEDS: [UNRECOGNIZED DRUG - OTHER] IV SCH (16:16)
[2024-09-20] VITALS (8 sets, daily range): BP systolic 94–110; BP diastolic 51–79; PULSE 77–84; RESP 16–79; TEMP 97.9–98.8; O2SAT 96–100
[2024-09-20 07:01] LABS: Alkaline Phosphatase 67 U/L (46-116); Anion Gap 10 (5-15); BUN/Creatinine Ratio 12.6 (10.0-20.0); Blood Urea Nitrogen 17 mg/dL (9-23); Glucose 83 mg/dL (74-106); Sodium 144 mmol/L (136-145)
[2024-09-20 07:03] LABS: Hematocrit 27.9 % (36.0-46.0); Hemoglobin 9.2 g/dL (12.2-16.2)
[2024-09-20 07:07] LABS: Mean Corpuscular Hemoglobin 32.2 pg (28.0-32.0); Mean Corpuscular Volume 98.0 fL (80.0-100.0); Nucleated Red Blood Cells % 0.3 %
[2024-09-20 07:08] LABS: Alanine Aminotransferase 43 U/L (7-40); Albumin 2.7 g/dL (3.2-4.8); Bilirubin, Total 2.1 mg/dL (0.2-1.0); Calcium 8.5 mg/dL (8.7-10.4); Carbon Dioxide 13 mmol/L (20-31); Chloride 121 mmol/L (98-107); Potassium 3.3 mmol/L (3.5-5.1); Total Protein 5.0 g/dL (5.7-8.2)
--- NOTE | 2024-09-20 09:29 | DVHPN2 ---
Reviewed: Care Plan, H&P, Labs, Medications, Previous Orders, Radiology Changes from previous H/P or p: No Changes Objective Vitals Vital Signs Date Time Temp Pulse Resp B/P (MAP) Pulse Ox O2 Delivery O2 Flow Rate FiO2 09/20/24 05:00 98.8 82 17 102/51 (68) 100 98.8 09/19/24 20:00 Room Air* 0 21 Intake/Output Intake and Output 09/20/24 07:00 Intake Total 1325 ml Output Total 3350 ml Balance -2025 ml Intake Oral 1125 ml IV Total 200 ml Output Urine Total 1300 ml Stool Total 2050 ml Medications Current Medications Medications Dose Ordered Sig/Cecily Route Start Time Stop Time Status Last Admin Dose Admin Ondansetron HCl 4 mg Q4HP PRN IV 09/12/24 11:15 Acetaminophen 650 mg Q6HP PRN PO 09/12/24 11:15 Metronidazole 100 ml @ 100 mls/hr Q8HR IV 09/12/24 14:00 09/20/24 05:34 100 MLS/HR Ceftriaxone Sodium 50 ml @ 100 mls/hr DAILY@09 IV 09/12/24 11:15 09/19/24 10:52 100 MLS/HR Diagnostic Test (Pha) 1 strip Q6HR 09/12/24 12:00 09/20/24 05:34 1 STRIP Insulin Human Regular Q6HR SC 09/12/24 12:00 09/19/24 11:57 3 UNITS Dextrose 50 ml UD PRN IV 09/12/24 11:15 Ergocalciferol 50,000 unit QWEEKLY PO 09/12/24 11:15 09/19/24 10:50 50,000 UNIT Ferrous Sulfate 325 mg DAILY PO 09/13/24 10:00 09/19/24 10:49 325 MG Pantoprazole Sodium 40 mg DAILY PO 09/15/24 10:00 09/19/24 10:50 40 MG Lactulose 30 ml Q6HR PO 09/19/24 00:00 09/20/24 05:34 30 ML Rifaximin 550 mg BID PO 09/19/24 08:45 09/19/24 21:50 550 MG Sodium Bicarbonate 50 ml/ Potassium Chloride 10 meq/ Sodium Chloride 1,055 ml @ 50 mls/hr Q21H6M IV 09/19/24 14:30 09/19/24 16:16 50 MLS/HR Laboratory Results Laboratory Tests 09/20/24 05:48 Chemistry Test 09/20/24 05:48 Albumin 2.7 g/dL (3.2-4.8) L Calcium Level 8.5 mg/dL (8.7-10.4) L Total Protein 5.0 g/dL (5.7-8.2) L LFT Test 09/20/24 05:48 Alanine Aminotransferase (ALT) 43 U/L (7-40) H Alkaline Phosphatase 67 U/L (46-116) Aspartate Amino Transferase (AST) 63 U/L (13-40) H Total Bilirubin 2.1 mg/dL (0.2-1.0) H Urinalysis Test 09/12/24 11:32 Urine Color Light-yellow (Yellow) Urine Clarity Cloudy (Clear) H Urine pH 6.0 (5.0-9.0) Urine Specific [place] 1.011 (1.001-1.035) Urine Protein 1+ (Negative) H Urine Ketones Negative (Negative) Urine Blood 1+ /uL (Negative) H Urine Nitrite Negative (Negative) Urine Bilirubin Negative (Negative) Urine Urobilinogen Normal mg/dL (Negative) Urine Leukocyte Esterase 3+ /uL (Negative) Urine RBC 18 /hpf (0 - 4) Urine WBC Clumps Present /hpf (None Seen) Urine Microscopic WBC 990 /HPF (0-5) H Urine Squamous Epithelial Cells Few /hpf (<5) Urine Bacteria Few /hpf (None Seen) H Urine Glucose Normal mg/dL (Normal) Microbiology Microbiology Date/Time Source Procedure Growth Status 09/12/24 11:32 Voided Urine Urine Culture - Final Complete 09/12/24 08:21 Blood Blood Culture - Final NO GROWTH AFTER 5 DAYS OF INCUBATION. Complete Labs and/or images reviewed: Labs reviewed by me, Image(s) reviewed by me Assessment/Plan Assessment/Plan Acute metabolic encephalopathy Acute hepatic encephalopathy GI consult for Dr. Trammell appreciated UTI: Urine cultures mixed, continue Rocephin Acute hyperammonemia with ammonia 175: Continue lactulose, Rifaximin Anemia Gallbladder mass Thrombocytopenia cirrhosis of liver Hyponatremia Acute hypokalemia: Replace potassium Anemia Elevated liver enzymes Hyperbilirubinemia LU on CKD 4: Nephrology consult appreciated Lactic acidosis rule out sepsis Diabetes type 2 History of colon cancer status post urostomy and colostomy Metastasis from colon cancer Blood cultures negative Urine cultures mixed Patient was discharged from [facility] 07-02-24 after 15 days stay Time spent 55 minutes Patient condition continues to be very poor Nitesh [phone] who is also the caregiver at bedside Plan discussed with: Patient Date of Service: Sep 20, 2024 Billing Provider: CLAUDIA COMER MD Common Visit Codes: [id number] INP/OBS CARE(HIGH) CLAUDIA COMER MD Sep 20, 2024 09:29
--- NOTE | 2024-09-20 13:24 | DVHPN2 ---
Progress Note - Dictate Date Seen: Sep 20, 2024 Medical Necessity Reason Pt with a Central, PICC or Fol: No Subjective Family member at bedside vital signs Vital Sign Date Time Temp Pulse Resp B/P (MAP) Pulse Ox O2 Delivery O2 Flow Rate FiO2 09/20/24 12:29 98.3 77 18 105/66 (79) 98 98.3 09/20/24 08:00 Room Air* 0 21 Total Intake and Output 09/19/24 09/19/24 09/20/24 15:00 23:00 07:00 Intake Total 400 ml 925 ml Output Total 2050 ml 1300 ml Balance -1650 ml -375 ml medications Current Medications Medications Dose Ordered Sig/Cecily Route Start Time Stop Time Status Last Admin Dose Admin Ondansetron HCl 4 mg Q4HP PRN IV 09/12/24 11:15 Acetaminophen 650 mg Q6HP PRN PO 09/12/24 11:15 Metronidazole 100 ml @ 100 mls/hr Q8HR IV 09/12/24 14:00 09/20/24 05:34 100 MLS/HR Ceftriaxone Sodium 50 ml @ 100 mls/hr DAILY@09 IV 09/12/24 11:15 09/20/24 09:46 100 MLS/HR Diagnostic Test (Pha) 1 strip Q6HR 09/12/24 12:00 09/20/24 12:00 1 STRIP Insulin Human Regular Q6HR SC 09/12/24 12:00 09/19/24 11:57 3 UNITS Dextrose 50 ml UD PRN IV 09/12/24 11:15 Ergocalciferol 50,000 unit QWEEKLY PO 09/12/24 11:15 09/19/24 10:50 50,000 UNIT Ferrous Sulfate 325 mg DAILY PO 09/13/24 10:00 09/20/24 09:46 325 MG Pantoprazole Sodium 40 mg DAILY PO 09/15/24 10:00 09/20/24 09:46 40 MG Lactulose 30 ml Q6HR PO 09/19/24 00:00 09/20/24 09:46 30 ML Rifaximin 550 mg BID PO 09/19/24 08:45 09/20/24 09:46 550 MG Sodium Bicarbonate 50 ml/ Potassium Chloride 10 meq/ Sodium Chloride 1,055 ml @ 50 mls/hr Q21H6M IV 09/19/24 14:30 09/20/24 12:30 50 MLS/HR objective Gen: nad heent: nc/at, lungs: cta anteriorly cvs: no rub abd: soft, bowel sounds audible ext: no edema laboratory and microbiology Laboratory Tests 09/20/24 05:48 Test 09/20/24 05:48 Range/Units Serum Glucose 83 74-106 mg/dL Assessment/Plan Problem List/Assessment/Plan Acute kidney injury - improving Hypernatremia Hypokalemia Hepatic encephalopathy s/p Colostomy Mild right hydronephrosis nonAG metabolic acidosis - we will change IV fluids to D5 with supplemental potassium. Dietary Evaluation Review Comments: 1) Glucerna 1.2Cal @ 60ml/hr 2) Case 1 pk BID 2) Advance diet as medically feasible Expected Outcomes/Goals: To meet >75% estimated needs Fu 2-3 days Plan discussed with: Other NICKOLAS ACOSTA MD Sep 20, 2024 13:24
[2024-09-20] MEDS: D5W 5% 1,000 ML IV SCH (13:30)
[2024-09-20] MEDS: SODIUM BICARB 8.4% 50Meq/50ml SYR Vial IV ONE (16:00)
[2024-09-21] VITALS (8 sets, daily range): BP systolic 98–115; BP diastolic 50–73; PULSE 64–88; RESP 16–20; TEMP 97.3–98.8; O2SAT 92–100
[2024-09-21 06:53] LABS: Anion Gap 11 (5-15); Sodium 142 mmol/L (136-145)
[2024-09-21 06:54] LABS: Calcium 9.1 mg/dL (8.7-10.4)
[2024-09-21 06:59] LABS: Glucose 93 mg/dL (74-106)
[2024-09-21 07:13] LABS: Carbon Dioxide 14 mmol/L (20-31); Chloride 117 mmol/L (98-107); Potassium 2.6 mmol/L (3.5-5.1)
[2024-09-21 07:52] LABS: BUN/Creatinine Ratio 8.9 (10.0-20.0); Blood Urea Nitrogen 13 mg/dL (9-23)
--- NOTE | 2024-09-21 10:43 | DVHPN2 ---
Reviewed: Care Plan, H&P, Labs, Medications, Previous Orders, Radiology Changes from previous H/P or p: No Changes Objective Vitals Vital Signs Date Time Temp Pulse Resp B/P (MAP) Pulse Ox O2 Delivery O2 Flow Rate FiO2 09/21/24 08:00 80 20 96 Room Air* 0 21 09/21/24 04:57 98.8 98/52 (67) 98.8 Intake/Output Intake and Output 09/21/24 07:00 Intake Total 1500 ml Output Total 4380 ml Balance -2880 ml Intake Oral 1200 ml IV Total 300 ml Output Urine Total 1450 ml Stool Total 2930 ml Medications Current Medications Medications Dose Ordered Sig/Cecily Route Start Time Stop Time Status Last Admin Dose Admin Ondansetron HCl 4 mg Q4HP PRN IV 09/12/24 11:15 Acetaminophen 650 mg Q6HP PRN PO 09/12/24 11:15 Metronidazole 100 ml @ 100 mls/hr Q8HR IV 09/12/24 14:00 09/21/24 05:47 100 MLS/HR Ceftriaxone Sodium 50 ml @ 100 mls/hr DAILY@09 IV 09/12/24 11:15 09/21/24 09:13 100 MLS/HR Diagnostic Test (Pha) 1 strip Q6HR 09/12/24 12:00 09/21/24 05:55 1 STRIP Insulin Human Regular Q6HR SC 09/12/24 12:00 09/19/24 11:57 3 UNITS Dextrose 50 ml UD PRN IV 09/12/24 11:15 Ergocalciferol 50,000 unit QWEEKLY PO 09/12/24 11:15 09/19/24 10:50 50,000 UNIT Ferrous Sulfate 325 mg DAILY PO 09/13/24 10:00 09/21/24 09:14 325 MG Pantoprazole Sodium 40 mg DAILY PO 09/15/24 10:00 09/21/24 09:14 40 MG Lactulose 30 ml Q6HR PO 09/19/24 00:00 09/21/24 05:48 30 ML Rifaximin 550 mg BID PO 09/19/24 08:45 09/21/24 09:14 550 MG Dextrose 1,000 ml @ 75 mls/hr [id number] IV 09/20/24 13:30 09/20/24 16:15 75 MLS/HR Laboratory Results Laboratory Tests 09/20/24 05:48 09/21/24 04:10 Chemistry Test 09/21/24 04:10 Calcium Level 9.1 mg/dL (8.7-10.4) Urinalysis Test 09/12/24 11:32 Urine Color Light-yellow (Yellow) Urine Clarity Cloudy (Clear) H Urine pH 6.0 (5.0-9.0) Urine Specific [place] 1.011 (1.001-1.035) Urine Protein 1+ (Negative) H Urine Ketones Negative (Negative) Urine Blood 1+ /uL (Negative) H Urine Nitrite Negative (Negative) Urine Bilirubin Negative (Negative) Urine Urobilinogen Normal mg/dL (Negative) Urine Leukocyte Esterase 3+ /uL (Negative) Urine RBC 18 /hpf (0 - 4) Urine WBC Clumps Present /hpf (None Seen) Urine Microscopic WBC 990 /HPF (0-5) H Urine Squamous Epithelial Cells Few /hpf (<5) Urine Bacteria Few /hpf (None Seen) H Urine Glucose Normal mg/dL (Normal) Microbiology Microbiology Date/Time Source Procedure Growth Status 09/12/24 11:32 Voided Urine Urine Culture - Final Complete 09/12/24 08:21 Blood Blood Culture - Final NO GROWTH AFTER 5 DAYS OF INCUBATION. Complete Labs and/or images reviewed: Labs reviewed by me, Image(s) reviewed by me Assessment/Plan Assessment/Plan Acute metabolic encephalopathy Acute hepatic encephalopathy GI consult for Dr. Trammell appreciated UTI: Urine cultures mixed, continue Rocephin Acute hyperammonemia with ammonia 130: Continue lactulose, Rifaximin Anemia Gallbladder mass Thrombocytopenia cirrhosis of liver Hyponatremia Acute hypokalemia: Replace potassium Anemia Elevated liver enzymes Hyperbilirubinemia LU on CKD 4: Nephrology consult appreciated Lactic acidosis rule out sepsis Diabetes type 2 History of colon cancer status post urostomy and colostomy Metastasis from colon cancer Blood cultures negative Urine cultures mixed Patient was discharged from [facility] 07-02-24 after 15 days stay Time spent 65 minutes Patient condition continues to be very poor Nitesh [phone] who is also the caregiver at bedside Plan discussed with: Patient Date of Service: Sep 21, 2024 Billing Provider: CLAUDIA COMER MD Common Visit Codes: [id number] CARE 30-74 MIN CLAUDIA COMER MD Sep 21, 2024 10:43
--- NOTE | 2024-09-21 10:53 | DVHPN2 ---
Progress Note - Dictate Date Seen: Sep 21, 2024 Medical Necessity Reason Pt with a Central, PICC or Fol: No Subjective Patient awake this morning lethargic but responsive vital signs Vital Sign Date Time Temp Pulse Resp B/P (MAP) Pulse Ox O2 Delivery O2 Flow Rate FiO2 09/21/24 08:00 80 20 96 Room Air* 0 21 09/21/24 04:57 98.8 98/52 (67) 98.8 Total Intake and Output 09/20/24 09/20/24 09/21/24 15:00 23:00 07:00 Intake Total 1200 ml 300 ml Output Total 300 ml 2260 ml 1820 ml Balance -300 ml -1060 ml -1520 ml medications Current Medications Medications Dose Ordered Sig/Cecily Route Start Time Stop Time Status Last Admin Dose Admin Ondansetron HCl 4 mg Q4HP PRN IV 09/12/24 11:15 Acetaminophen 650 mg Q6HP PRN PO 09/12/24 11:15 Metronidazole 100 ml @ 100 mls/hr Q8HR IV 09/12/24 14:00 09/21/24 05:47 100 MLS/HR Ceftriaxone Sodium 50 ml @ 100 mls/hr DAILY@09 IV 09/12/24 11:15 09/21/24 09:13 100 MLS/HR Diagnostic Test (Pha) 1 strip Q6HR 09/12/24 12:00 09/21/24 05:55 1 STRIP Insulin Human Regular Q6HR SC 09/12/24 12:00 09/19/24 11:57 3 UNITS Dextrose 50 ml UD PRN IV 09/12/24 11:15 Ergocalciferol 50,000 unit QWEEKLY PO 09/12/24 11:15 09/19/24 10:50 50,000 UNIT Ferrous Sulfate 325 mg DAILY PO 09/13/24 10:00 09/21/24 09:14 325 MG Pantoprazole Sodium 40 mg DAILY PO 09/15/24 10:00 09/21/24 09:14 40 MG Lactulose 30 ml Q6HR PO 09/19/24 00:00 09/21/24 05:48 30 ML Rifaximin 550 mg BID PO 09/19/24 08:45 09/21/24 09:14 550 MG Dextrose 1,000 ml @ 75 mls/hr [id number] IV 09/20/24 13:30 7/4/25 16:15 75 MLS/HR objective Gen: nad heent: nc/at, lungs: cta anteriorly cvs: no rub abd: soft, bowel sounds audible ext: no edema laboratory and microbiology Laboratory Tests 09/21/24 04:10 09/20/24 05:48 Test 09/21/24 04:10 Range/Units Serum Glucose 93 74-106 mg/dL Assessment/Plan Problem List/Assessment/Plan Acute kidney injury - improving Hypernatremia Hypokalemia Hepatic encephalopathy s/p Colostomy Mild right hydronephrosis nonAG metabolic acidosis - we will dose with 50 mEq supplemental potassium this morning - we will initiate therapy with sodium citrate b.i.d. - stable GFR Dietary Evaluation Review Comments: 1) Glucerna 1.2Cal @ 60ml/hr 2) Case 1 pk BID 2) Advance diet as medically feasible Expected Outcomes/Goals: To meet >75% estimated needs Fu 2-3 days Plan discussed with: Patient NICKOLAS ACOSTA MD Sep 21, 2024 10:53
--- NOTE | 2024-09-21 11:11 | DVHDS2 ---
Discharge Summary Date of Admission Sep 12, 2024 at 11:01 Date of Discharge: Sep 21, 2024 Admitting Diagnosis Altered mental status and confusion Wounds: None Labs/Diagnostic Data: Laboratory Results Test 09/21/24 05:46 09/21/24 04:10 09/20/24 05:48 09/17/24 09:08 POC Glucose 110 mg/dl (70-106) Sodium Level 142 mmol/L (136-145) Potassium Level 2.6 mmol/L (3.5-5.1) Chloride Level 117 mmol/L (98-107) Carbon Dioxide Level 14 mmol/L (20-31) Anion Gap 11 (5-15) Blood Urea Nitrogen 13 mg/dL (9-23) Creatinine 1.46 mg/dL (0.550-1.02) Glomerular Filtration Rate Calc 40 mL/min (>90) BUN/Creatinine Ratio 8.9 (10.0-20.0) Serum Glucose 93 mg/dL (74-106) Calcium Level 9.1 mg/dL (8.7-10.4) White Blood Count 5.2 10^3/uL (4.4-10.8) Red Blood Count 2.85 10^6/uL (4.0-5.20) Hemoglobin 9.2 g/dL (12.2-16.2) Hematocrit 27.9 % (36.0-46.0) Mean Corpuscular Volume 98.0 fL (80.0-100.0) Mean Corpuscular Hemoglobin 32.2 pg (28.0-32.0) Mean Corpuscular Hemoglobin Concent 32.9 g/dL (32.0-36.0) Red Cell Distribution Width 16.9 % (11.8-14.3) Platelet Count 43 10^3/uL (140-450) Mean Platelet Volume 8.2 fL (6.9-10.8) Neutrophils (%) (Auto) 75.8 % (37.0-80.0) Lymphocytes (%) (Auto) 14.6 % (10.0-50.0) Monocytes (%) (Auto) 7.2 % (0.0-12.0) Eosinophils (%) (Auto) 1.7 % (0.0-7.0) Basophils (%) (Auto) 0.7 % (0.0-2.0) Neutrophils # (Auto) 3.9 10 ^3/uL (1.6-8.6) Lymphocytes # (Auto) 0.8 10 ^3/uL (0.4-5.4) Monocytes # (Auto) 0.4 10 ^3/uL (0-1.3) Eosinophils # (Auto) 0.1 10 ^3/uL (0-0.8) Basophils # (Auto) 0 10 ^3/uL (0-0.2) Nucleated Red Blood Cells 0.3 % Total Bilirubin 2.1 mg/dL (0.2-1.0) Aspartate Amino Transferase (AST) 63 U/L (13-40) Alanine Aminotransferase (ALT) 43 U/L (7-40) Alkaline Phosphatase 67 U/L (46-116) Ammonia 130 umol/L (11-32) Total Protein 5.0 g/dL (5.7-8.2) Albumin 2.7 g/dL (3.2-4.8) Platelet Estimate Decreased Clumped Platelets None Magnesium Level 2.2 mg/dL (1.6-2.6) Test 09/16/24 05:30 09/15/24 21:51 09/14/24 12:05 09/13/24 14:02 Iron Level 174 ug/dL (50-170) Total Iron Binding Capacity 253 ug/dL (250-425) Percent Iron Saturation 68.8 % (15-50) Ferritin 68.4 ng/mL (10-291) Tumor Marker Alpha Fetoprotein 4.3 ng/mL (0.0-9.2) Carcinoembryonic Antigen 7.54 ng/mL (<=5.0) CA 19-9 Antigen 103 U/mL (0-35) Stool Occult Blood Positive x 1 (Negative) Stool Occult Blood Sample #3 (Negative) Blood Gas Specimen Type Arterial Blood Gas Sample Site Right radial Blood Gas Patient Temperature 37.0 Arterial Blood Date Drawn [id number] Arterial Blood pH 7.179 (7.350-7.450) Arterial Blood Partial Pressure CO2 16.6 mmHg (32.0-45.0) Arterial Blood Partial Pressure O2 110.5 mmHg (83.0-108.0) Arterial Blood HCO3 6.0 mmol/L (21.0-28.0) Arterial Blood Oxygen Saturation 96.9 % (94.0-98.0) Arterial Blood Base Excess -20.2 mmol/L (-2.0-3.0) Arterial Blood Oxyhemoglobin 95.9 % (94.0-98.0) Arterial Blood Carboxyhemoglobin 0.3 % (0.5-1.5) Arterial Blood Methemoglobin 0.7 % (0.0-1.5) Tam Test Yes Blood Gas Total Hemoglobin 11.00 g/dL (12.0-16.0) Blood Gas Modality Room air FiO2 % 21.0 Blood Gas Critical Value Read Back Yes Blood Gas Notified Whom eveline Sarabia md Blood Gas Notified Time [id number] Blood Gas Notified By Director Of Cath [facility] Prothrombin Time 13.2 sec (9.3-11.8) Prothrombin Time INR 1.28 (0.9-1.15) Hepatitis A Antibody Total Positive (Negative) Hepatitis B Surface Antigen Negative (Negative) Hepatitis B Surface Antibody Negative (Negative) Hepatitis B Core Total Antibody Negative (Negative) Hepatitis C Antibody Negative (Negative) Test 09/12/24 13:36 09/12/24 11:32 09/12/24 10:19 09/12/24 08:21 Erythrocyte Sedimentation Rate 33 mm/hr (0-20) Hemoglobin A1c 4.9 % A1C (<5.7) Urine Color Light-yellow (Yellow) Urine Clarity Cloudy (Clear) Urine pH 6.0 (5.0-9.0) Urine Specific [place] 1.011 (1.001-1.035) Urine Protein 1+ (Negative) Urine Ketones Negative (Negative) Urine Blood 1+ /uL (Negative) Urine Nitrite Negative (Negative) Urine Bilirubin Negative (Negative) Urine Urobilinogen Normal mg/dL (Negative) Urine Leukocyte Esterase 3+ /uL (Negative) Urine RBC 18 /hpf (0 - 4) Urine WBC Clumps Present /hpf (None Seen) Urine Microscopic WBC 990 /HPF (0-5) Urine Squamous Epithelial Cells Few /hpf (<5) Urine Bacteria Few /hpf (None Seen) Urine Glucose Normal mg/dL (Normal) Lactic Acid Level 2.4 mmol/L (0.4-2.0) Troponin I High Sensitivity 9 ng/L (</=34) C-Reactive Protein High Sensitivity 0.06 mg/dL (<1.0) Vitamin B12 Level 1647 pg/mL (211-911) Vitamin D 25-Hydroxy 34.5 ng/mL (30.0-100) Thyroid Stimulating Hormone (TSH) 1.12 uIU/mL (0.55-4.78) Other Laboratory Tests 09/21/24 04:10 09/20/24 05:48 Brief Hx & Hospital Course: 64-year-old female with a end-stage liver disease with cirrhosis ascites thrombocytopenia anemia hyperbilirubinemia recurrent frequent admissions different hospitals burden by for altered mental status ammonia was very high 170 treated with the lactulose and rifaximin seen by GI Dr. Sawyer Trammell UTI treated with Rocephin seen by Nephrology for acute kidney injury on CKD four patient also had lactic acidosis history of colon cancer status post urostomy and colostomy with Mets from colon cancer. The patient's general condition only marginally improved and did not make significant difference in spite of aggressive treatment. Discussed with the Corinna at bedside and he agreed to place the patient on hospice. He also mentioned that several doctors in the recent past have advised him to place the patient on hospice Discharged the patient home on hospice. General condition very poor and life expectancy is short. is aware of the very poor prognosis. Consults/Reason for consult GI Dr. Sawyer Trammell Nephrology Operations or Procedures CT abdomen pelvis without contrast Condition at Discharge: Poor Final Diagnosis/Problems List Acute metabolic encephalopathy Acute hepatic encephalopathy GI consult for Dr. Trammell appreciated UTI: Urine cultures mixed, continue Rocephin Acute hyperammonemia with ammonia 130: Continue lactulose, Rifaximin Anemia Gallbladder mass Thrombocytopenia cirrhosis of liver Hyponatremia Acute hypokalemia: Replace potassium Anemia Elevated liver enzymes Hyperbilirubinemia LU on CKD 4: Nephrology consult appreciated Lactic acidosis rule out sepsis Diabetes type 2 History of colon cancer status post urostomy and colostomy Metastasis from colon cancer Blood cultures negative Urine cultures mixed Discharge Disposition: Hospice - Home Discharge Instruct/Medications Diet: See Comment Diet comment: Low-protein diet Activity: Light activity Follow Up/Referral: Follow up with the hospice Medications: per hospice Scheduled Ergocalciferol (Vitamin D), 1 CAP PO QWEEKLY, (Reported) Ferrous Sulfate (Ferosul), 1 TAB PO DAILY, (Reported) Lactulose (Lactulose), 30 ML PO TID Lactulose (Lactulose), 10 GM PO TID Omeprazole (Omeprazole Dr), 1 CAP PO DAILY, (Reported) Pantoprazole Sodium Sesquihydr (Pantoprazole Sodium), 40 MG PO DAILY@0600 Potassium Chloride (Potassium Chloride ER), 1 TAB PO BID Potassium Chloride (Klor-Con 8), 8 MEQ PO EOD Rifaximin (Xifaxan), 550 MG PO BID Rifaximin (Xifaxan), 1 TAB PO BID Sertraline Hcl (Sertraline Hcl), 1 TAB PO DAILY, (Reported) Spironolactone (Aldactone), 25 MG PO DAILY Spironolactone (Spironolactone), 1 TAB PO DAILY, (Reported) Miscellaneous Medications Hydrocortone (Hydrocortisone 2.5%), TOP, (Reported) Insulin Glargine (Basaglar Kwikpen), SC, (Reported) 39 (Time taken for discharge summary 39 minutes) Discharge Statement: "Patient was advised to return to the ER or call 911 if any headaches, dizziness, shortness of breath, chest pain, abdominal pain, bleeding, fevers, or worsening of medical condition. Patient was counseled about treatment plan, medications, possible side effects, patientverbalized understanding. All questions were answered to the best of my ability. This discharge took greater then 30 minutes in planning, reviewing documentation, counseling the patient, and discussing with other team members." ASSESSMENT ASSESSMENT Hospital Course No significant improvement Assessment Acute metabolic encephalopathy Acute hepatic encephalopathy GI consult for Dr. Trammell appreciated UTI: Urine cultures mixed, continue Rocephin Acute hyperammonemia with ammonia 130: Continue lactulose, Rifaximin Anemia Gallbladder mass Thrombocytopenia cirrhosis of liver Hyponatremia Acute hypokalemia: Replace potassium Anemia Elevated liver enzymes Hyperbilirubinemia LU on CKD 4: Nephrology consult appreciated Lactic acidosis rule out sepsis Diabetes type 2 History of colon cancer status post urostomy and colostomy Metastasis from colon cancer Blood cultures negative Urine cultures mixed Date of Service: Sep 21, 2024 Billing Provider: CLAUDIA COMER MD Common Visit Codes: 94980-[id number]/[id number] DISCH DAY >30min CLAUDIA COMER MD Sep 21, 2024 11:11
[2024-09-21] MEDS: POTASSIUM EFFERVESENT TAB 25 MEQ PO ONE (11:34)
[2024-09-21] MEDS: SODIUM CITR/CITRIC ACID ORAL SOLN 30 ML PO SCH (15:27)
[2024-09-22 01:00] VITALS: BP 109/59; PULSE 83; RESP 18; TEMP 97.1; O2SAT 100
[2024-09-22 05:00] VITALS: BP 91/50; PULSE 74; RESP 18; TEMP 98; O2SAT 100
[2024-09-22 08:00] VITALS: PULSE 73; PULSE 80; RESP 20; O2SAT 96
[2024-09-22 09:00] VITALS: BP 133/64; PULSE 82; RESP 20; TEMP 97.5; O2SAT 100
--- NOTE | 2024-09-22 11:20 | DVHPN2 ---
Progress Note - Dictate Date Seen: Sep 22, 2024 Medical Necessity Reason Pt with a Central, PICC or Fol: No Subjective Resting comfortably this morning vital signs Vital Sign Date Time Temp Pulse Resp B/P (MAP) Pulse Ox O2 Delivery O2 Flow Rate FiO2 09/22/24 09:00 97.5 82 20 133/64 (87) 100 97.5 09/22/24 08:00 Room Air* 0 21 Total Intake and Output 09/21/24 09/21/24 09/22/24 15:00 23:00 07:00 Intake Total 404 ml 1146 ml 500 ml Output Total 1150 ml 800 ml 850 ml Balance -746 ml 346 ml -350 ml medications Current Medications Medications Dose Ordered Sig/Cecily Route Start Time Stop Time Status Last Admin Dose Admin Ondansetron HCl 4 mg Q4HP PRN IV 09/12/24 11:15 Acetaminophen 650 mg Q6HP PRN PO 09/12/24 11:15 Metronidazole 100 ml @ 100 mls/hr Q8HR IV 09/12/24 14:00 09/22/24 06:32 100 MLS/HR Ceftriaxone Sodium 50 ml @ 100 mls/hr DAILY@09 IV 09/12/24 11:15 09/22/24 08:13 100 MLS/HR Diagnostic Test (Pha) 1 strip Q6HR 09/12/24 12:00 09/22/24 06:00 1 STRIP Insulin Human Regular Q6HR SC 09/12/24 12:00 09/22/24 00:31 3 UNITS Dextrose 50 ml UD PRN IV 09/12/24 11:15 Ergocalciferol 50,000 unit QWEEKLY PO 09/12/24 11:15 09/19/24 10:50 50,000 UNIT Ferrous Sulfate 325 mg DAILY PO 09/13/24 10:00 09/22/24 08:12 325 MG Pantoprazole Sodium 40 mg DAILY PO 09/15/24 10:00 09/22/24 08:11 40 MG Lactulose 30 ml Q6HR PO 09/19/24 00:00 09/22/24 06:28 30 ML Rifaximin 550 mg BID PO 09/19/24 08:45 09/22/24 08:11 550 MG Dextrose 1,000 ml @ 75 mls/hr [id number] IV 09/20/24 13:30 09/22/24 06:12 75 MLS/HR Citric Acid/ Sodium Citrate 30 ml PC PO 09/21/24 13:00 09/22/24 08:14 30 ML objective Gen: nad heent: nc/at, lungs: cta anteriorly cvs: no rub abd: soft, bowel sounds audible ext: no edema laboratory and microbiology Laboratory Tests 09/21/24 04:10 09/20/24 05:48 Test 09/21/24 04:10 Range/Units Serum Glucose 93 74-106 mg/dL Assessment/Plan Problem List/Assessment/Plan Acute kidney injury - improving Hypernatremia Hypokalemia Hepatic encephalopathy s/p Colostomy Mild right hydronephrosis nonAG metabolic acidosis - hypokalemia improved - essentially stable GFR, we will continue to follow - even fluid balance Dietary Evaluation Review Comments: 1) Glucerna 1.2Cal @ 60ml/hr 2) Case 1 pk BID 2) Advance diet as medically feasible Expected Outcomes/Goals: To meet >75% estimated needs Fu 2-3 days Plan discussed with: Other NICKOLAS ACOSTA MD Sep 22, 2024 11:20
--- NOTE | 2024-09-22 12:20 | DVHPN2 ---
Reviewed: Care Plan, H&P, Labs, Medications, Previous Orders, Radiology Changes from previous H/P or p: No Changes Objective Vitals Vital Signs Date Time Temp Pulse Resp B/P (MAP) Pulse Ox O2 Delivery O2 Flow Rate FiO2 09/22/24 09:00 97.5 82 20 133/64 (87) 100 97.5 09/22/24 08:00 Room Air* 0 21 Intake/Output Intake and Output 09/22/24 07:00 Intake Total 2050 ml Output Total 2800 ml Balance -750 ml Intake Oral 1850 ml IV Total 200 ml Output Urine Total 1650 ml Stool Total 1150 ml Medications Current Medications Medications Dose Ordered Sig/Cecily Route Start Time Stop Time Status Last Admin Dose Admin Ondansetron HCl 4 mg Q4HP PRN IV 09/12/24 11:15 Acetaminophen 650 mg Q6HP PRN PO 09/12/24 11:15 Metronidazole 100 ml @ 100 mls/hr Q8HR IV 09/12/24 14:00 09/22/24 06:32 100 MLS/HR Ceftriaxone Sodium 50 ml @ 100 mls/hr DAILY@09 IV 09/12/24 11:15 09/22/24 08:13 100 MLS/HR Diagnostic Test (Pha) 1 strip Q6HR 09/12/24 12:00 09/22/24 06:00 1 STRIP Insulin Human Regular Q6HR SC 09/12/24 12:00 09/22/24 00:31 3 UNITS Dextrose 50 ml UD PRN IV 09/12/24 11:15 Ergocalciferol 50,000 unit QWEEKLY PO 09/12/24 11:15 09/19/24 10:50 50,000 UNIT Ferrous Sulfate 325 mg DAILY PO 09/13/24 10:00 09/22/24 08:12 325 MG Pantoprazole Sodium 40 mg DAILY PO 09/15/24 10:00 09/22/24 08:11 40 MG Lactulose 30 ml Q6HR PO 09/19/24 00:00 09/22/24 06:28 30 ML Rifaximin 550 mg BID PO 09/19/24 08:45 09/22/24 08:11 550 MG Dextrose 1,000 ml @ 75 mls/hr [id number] IV 09/20/24 13:30 09/22/24 06:12 75 MLS/HR Citric Acid/ Sodium Citrate 30 ml PC PO 09/21/24 13:00 09/22/24 08:14 30 ML Potassium Bicarbonate 50 meq BID PO 09/22/24 22:00 Laboratory Results Laboratory Tests 09/20/24 05:48 09/21/24 04:10 Urinalysis Test 09/12/24 11:32 Urine Color Light-yellow (Yellow) Urine Clarity Cloudy (Clear) H Urine pH 6.0 (5.0-9.0) Urine Specific [place] 1.011 (1.001-1.035) Urine Protein 1+ (Negative) H Urine Ketones Negative (Negative) Urine Blood 1+ /uL (Negative) H Urine Nitrite Negative (Negative) Urine Bilirubin Negative (Negative) Urine Urobilinogen Normal mg/dL (Negative) Urine Leukocyte Esterase 3+ /uL (Negative) Urine RBC 18 /hpf (0 - 4) Urine WBC Clumps Present /hpf (None Seen) Urine Microscopic WBC 990 /HPF (0-5) H Urine Squamous Epithelial Cells Few /hpf (<5) Urine Bacteria Few /hpf (None Seen) H Urine Glucose Normal mg/dL (Normal) Microbiology Microbiology Date/Time Source Procedure Growth Status 09/12/24 11:32 Voided Urine Urine Culture - Final Complete 09/12/24 08:21 Blood Blood Culture - Final NO GROWTH AFTER 5 DAYS OF INCUBATION. Complete Labs and/or images reviewed: Labs reviewed by me, Image(s) reviewed by me Assessment/Plan Assessment/Plan Acute metabolic encephalopathy Acute hepatic encephalopathy GI consult for Dr. Trammell appreciated UTI: Urine cultures mixed, continue Rocephin Acute hyperammonemia with ammonia 130: Continue lactulose, Rifaximin Anemia Gallbladder mass Thrombocytopenia cirrhosis of liver Hyponatremia Acute hypokalemia: Replace potassium Anemia Elevated liver enzymes Hyperbilirubinemia LU on CKD 4: Nephrology consult appreciated Lactic acidosis rule out sepsis Diabetes type 2 History of colon cancer status post urostomy and colostomy Metastasis from colon cancer Blood cultures negative Urine cultures mixed Patient was discharged from [facility] 07-02-24 after 15 days stay Time spent 65 minutes Patient condition continues to be very poor Nitesh [phone] who is also the caregiver at bedside Patient was Discharged on hospice on 09/21/2024, awaiting transportation. Plan discussed with: Patient My Orders Orders - CLAUDIA COMER MD Procedure Category Date Status Time Refer To Hospice [facility] 09/21/24 In Process 12:09 Hepatic Diet DIET 09/21/24 Transmitted (50gmpro,2gmna) Dinner Date of Service: Sep 22, 2024 Billing Provider: CLAUDIA COMER MD Common Visit Codes: [id number] INP/OBS CARE(HIGH) CLAUDIA COMER MD Sep 22, 2024 12:20
[2024-09-22 13:00] VITALS: BP 111/61; PULSE 83; RESP 18; TEMP 98.1; O2SAT 99
[2024-09-22 17:00] VITALS: BP 107/53; PULSE 82; RESP 18; TEMP 97.9; O2SAT 100
[2024-09-22] MEDS ORDERED: POTASSIUM EFFERVESENT TAB 25 MEQ PO SCH (22:00)
== END 2024-09-22 18:50 | disposition home health service (06) | DRG 871 ==
LOC: ER 07:21 → OVERFLOW 11:01 → TELE-WESTW 09-13 18:30
PROVIDERS: ADMIT Family Medicine; ATTEND Family Medicine
DX: A41.9 Sepsis, unspecified organism (principal); G93.41 Metabolic encephalopathy; E87.1 Hypo-osmolality and hyponatremia; E87.20 Acidosis, unspecified; N17.9 Acute kidney failure, unspecified; E87.0 Hyperosmolality and hypernatremia; N18.4 Chronic kidney disease, stage 4 (severe); N13.6 Pyonephrosis; D64.9 Anemia, unspecified; K74.60 Unspecified cirrhosis of liver; D69.6 Thrombocytopenia, unspecified; E87.6 Hypokalemia; K76.82 Hepatic encephalopathy; K59.00 Constipation, unspecified; K80.20 Calculus of gallbladder without cholecystitis without obstruction; I12.9 Hypertensive chronic kidney disease with stage 1 through stage 4 chronic kidney disease, or unspecified chronic kidney disease; E11.22 Type 2 diabetes mellitus with diabetic chronic kidney disease; K72.10 Chronic hepatic failure without coma; Z79.2 Long term (current) use of antibiotics; Z88.5 Allergy status to narcotic agent; Z79.4 Long term (current) use of insulin; Z79.899 Other long term (current) drug therapy; Z98.891 History of uterine scar from previous surgery; Z85.038 Personal history of other malignant neoplasm of large intestine; Z93.3 Colostomy status; Z93.6 Other artificial openings of urinary tract status; Z83.3 Family history of diabetes mellitus
CPT/HCPCS: 36415; 36600; 70450; 71045; 74176; 76705; 80048; 80053; 81001; 82105; 82140; 82270; 82306; 82378; 82607; 82728; 82805; 82962; 83036; 83540; 83550; 83605; 83735; 84443; 84484; 85025; 85610; 85652; 86141; 86301; 86704; 86706; 86708; 86803; 87040; 87086; 87340; 92610; 93005; 96361; 96365; 97163; 99291; 99292; G0378; J1815; J2543; J3480; J3490